=== PATIENT | male | born 1955 | race Caucasian/White ===

== ENCOUNTER 2017-11-25 07:27 | Emergency (ER) | payer OTHER ==
[2017-11-25] MEDS ORDERED: Zofran 4 MG/2 ML VIAL IV ONE (07:35)
[2017-11-25] MEDS ORDERED: TORAdol 30 mg Injection IV ONE (07:35)
--- NOTE | 2017-11-25 07:40 | ERPHSYRPT ---
- History of Present Illness Time Seen by Provider: 11/25/17 07:32 Source: patient, EMS Exam Limitations: no limitations Physician History: patient fell in the bathroom 2 days ago injuring his left ribs on side of bathtub; ; no other injury; chronic sob but now increased because hurts to breath; cough with pain and productive thick mucous; no blood; no increase sob since fall; no fever; no other CP other then local anterior lateral lower left from fall; no abdominal pain, nausea or vomiting; eating ok; no change BMs or voiding and no blood in stool or urine; no head or neck injury or pain; Occurred: days ago (2) Reason for Fall: slipped, fell from standing pos (striking side of tub) Injuries/Pain Location: chest (anterior left lower ribs) Loss of Consciousness: no loss of consciousness Severity of Pain-Max: severe (10/10) Severity of Pain-Current: severe (8/10) Modifying Factors: Improves With: immobilization (helps), movement (aggravates) Associated Symptoms (Fall): chest pain (with motion or cough or deep breath loacally to injury), shortness of breath (chronic; not increased) Allergies/Adverse Reactions: penicillin G Allergy (Verified 11/25/17 07:38) Hx Influenza Vaccination/Date Given: No Hx Pneumococcal Vaccination/Date Given: No - Review of Systems Constitutional: No Fever, No Chills, No Fatigue Eyes: No Symptoms Ears, Nose, & Throat: No Symptoms Respiratory: Cough (chronic), Dyspnea on Exertion (MEHTA), No Cyanosis, No Dyspnea , No Stridor, No Wheezing Cardiac: Chest Pain (left lower ribs from contusion ), No Edema, No Palpitations , No Syncope, No Orthopnea Abdominal/Gastrointestinal: No Abdominal Pain, No Nausea, No Vomiting, No Diarrhea, No Hematemesis, No Hematochezia, No Melena Genitourinary Symptoms: No Dysuria, No Hematuria, No Testicle Pain Musculoskeletal: Fall, Injury (left lower ribs), No Back Pain, No Neck Pain, No Joint Pain Skin: No Symptoms Neurological: No Symptoms Psychological: Alcohol Abuse, No Drug Abuse, No Depression, No Suicidal Ideations, No Homicidal Ideations Endocrine: No No Symptoms Hematologic/Lymphatic: No No Symptoms Immunological/Allergic: No No Symptoms - Past Medical History Pertinent Past Medical History: Yes Cardiac History: Hypertension Respiratory History: Bronchitis, COPD, Other (prior rib fractures) Endocrine Medical History: No Pertinent History Musculoskeletal History: No Pertinent History GI Medical History: No Pertinent History History: No Pertinent History Psycho-Social History: No Pertinent History Male Reproductive Disorders: No Pertinent History - Past Surgical History Past Surgical History: No - Social History Smoking Status: Current every day smoker Exposure to second hand smoke: Yes Alcohol Use: Chronic Drug Use: none Patient Lives Alone: No Significant Family History: no pertinent family hx - Nursing Vital Signs Nursing Vital Signs: Initial Vital Signs Temperature 98.2 F 11/25/17 07:29 Pulse Rate 79 11/25/17 07:29 Respiratory Rate 22 11/25/17 07:29 Blood Pressure 171/85 11/25/17 07:29 O2 Sat by Pulse Oximetry 94 L 11/25/17 07:29 Pain Scale Pain Intensity 10 - [place] Coma Score Best Eye Response (Mahnaz): (4) open spontaneously Best Verbal Response ([place]): (5) oriented Best Motor Response ([place]ahnaz): (6) obeys commands [place] Total: 15 - Physical Exam General Appearance: severe distress (left lower rib pain), alert Head Injury: no evidence of injury, No contusions, No ecchymosis, No tenderness Eye Exam: PERRL/EOMI, eyes nml inspection, No photophobia ENT Exam: airway nml, No evidence of ENT injury, No dental injury, No hemotympanum, No clotted nasal blood, No malocclusion Neck Exam: supple, trachea midline, full range of motion, normal inspection, No paraspinous muscle tender, No pain on movement of neck, No tenderness, No carotid bruit, No JVD Respiratory/Chest Exam: chest tenderness (left loer ribs- anterior; mid axillary ), respiratory distress (mild tachypnea and shallow), decreased breath sounds ( splintting on left), rib tenderness (left anterior to mid axiallry lower), splinting, other (diffuse coarse bronchovesciular breath sounds), No normal breath sounds, No ecchymosis, No crepitus, No rales, No rhonchi, No wheezing, No subcutaneous emphysema, No palpable fracture, No paradoxical movements Cardiovascular Exam: normal heart sounds, regular rate/rhythm, normal peripheral pulses, No murmur, No edema, No JVD, No friction rub Gastrointestinal Exam: soft, normal bowel sounds, tenderness (mild LUQ; no guarding or rebound), distention (softly), hepatomegaly (mild), No mass, No guarding, No pulsatile mass, No rebound, No hernia, No bruit Genitalia Exam: normal genital exam Rectal Exam: deferred Back Exam: normal inspection, normal range of motion, No CVA tenderness, No vertebral tenderness, No point tenderness Extremity Exam: normal inspection, normal range of motion, capillary refill <3 sec, pelvis stable, No bony point tenderness Peripheral Pulses: carotid (R): 4+, carotid (L): 4+, femoral (R): 4+, femoral (L ): 4+, dorsalis-pedis (R): 3+, dorsalis-pedis (L): 3+ Neurologic Exam: alert, oriented x 3, cooperative, palaeontologist II-XII nml as tested, normal mood/affect, nml cerebellar function, sensation nml, No nml station & gait (pain in left ribs limits his mobility; able to stand nad ambulate slowly wiht assitance), No motor deficits Skin Exam: normal color, warm, dry, No rash, No petechiae, No cyanosis SpO2 Interpretation: borderline oxygenation, O2 applied SpO2: 93 Oxygen Delivery: Room Air - Course Nursing assessment & vital signs reviewed: Yes Rhythm Strip: Rate (75), Normal Sinus Rhythm - Radiology Exams Chest X-ray Interpretation: Interpreted by me, No Pneumonia, No Pneumothorax, Nml Heart Size, Non-displaced Fracture (left ribs 7 & 9; aging chest) Ordered Tests: Active Orders 24 hr Category Date Time Status Community Engagement Manager STAT Care 11/25/17 07:34 Active IV Insertion STAT Care 11/25/17 07:32 Active Oxygen-ED Only NASAL CANNULA 2 lpm Care 11/25/17 07:32 Active Pulse Oximetry (ED) STAT Care 11/25/17 07:32 Active CHEST 1 VIEW (PORTABLE) Stat Exams 11/25/17 07:33 Completed CBC W DIFF Stat Lab 11/25/17 07:50 Completed CMP Stat Lab 11/25/17 07:50 Completed Lactic Acid Stat Lab 11/25/17 07:50 Completed Lactic Acid Stat Lab 11/25/17 10:07 Results NT PRO BNP Stat Lab 11/25/17 07:50 Completed Medication Summary Discontinued Medications Generic Name Dose Route Start Last Admin Trade Name Mima PRPing Reason Stop Dose Admin Hydromorphone HCl 1 mg 11/25/17 08:23 11/25/17 08:35 Hydromorphone 1 Mg/Ml Ampule IV 11/25/17 08:24 Not Given STAT ONE Hydromorphone HCl 2 mg 11/25/17 08:27 11/25/17 08:33 Hydromorphone 1 Mg/Ml Ampule IV 11/25/17 08:28 2 mg STAT ONE Administration Hydromorphone HCl Confirm 11/25/17 08:27 Dilaudid 2 Mg Injection Administered 11/25/17 08:28 Dose 2 mg .ROUTE .STK-MED ONE Lactated Ringer's 1,000 mls @ 999 mls/hr 11/25/17 08:14 11/25/17 08:17 Lactated Ringers IV 11/25/17 09:14 999 mls/hr .Q1H1M ONE Administration Lactated Ringer's Confirm 11/25/17 08:16 Lactated Ringers Administered 11/25/17 08:17 Dose 1,000 mls @ ud IV .STK-MED ONE Ketorolac Tromethamine 30 mg 11/25/17 07:35 11/25/17 08:02 Toradol 30 Mg Injection IV 11/25/17 07:36 30 mg STAT ONE Administration Ketorolac Tromethamine Confirm 11/25/17 07:53 Toradol 30 Mg Injection Administered 11/25/17 07:54 Dose 30 mg .ROUTE .STK-MED ONE Ondansetron HCl 4 mg 11/25/17 07:35 11/25/17 08:02 Zofran 4 Mg/2 Ml Vial IV 11/25/17 07:36 4 mg STAT ONE Administration Ondansetron HCl Confirm 11/25/17 07:53 Zofran 4 Mg/2 Ml Vial Administered 11/25/17 07:54 Dose 4 mg .ROUTE .STK-MED ONE Lab/Rad Data: Laboratory Result Diagrams 11/25/17 07:50 11/25/17 07:50 Laboratory Results 11/25/17 11/25/17 11/25/17 Range/Units 10:07 07:50 07:50 WBC (4.0-10.5) K/mm3 RBC (4.1-5.6) M/mm3 Hgb (12.5-18.0) gm/dl Hct (42-50) % MCV (78-100) fl MCH (26-32) pg MCHC (32-36) g/dl RDW (11.5-14.0) % Plt Count (150-450) K/mm3 MPV (6-9.5) fl Gran % (36.0-66.0) % Lymphocytes % (24.0-44.0) % Monocytes % (0.0-12.0) % Eosinophils % (0.00-5.0) % Basophils % (0.0-0.4) % Basophils # (0-0.4) Sodium 145 (137-145) mmol/L Potassium 4.0 (3.5-5.1) mmol/L Chloride 105 (98-107) mEq/L Carbon Dioxide 22 (22-30) mmol/L Anion Gap 22.0 MEQ/L BUN 14 (9-20) mg/dl Creatinine 0.80 (0.66-1.25) mg/dl Estimated GFR > 60 ML/MIN Glucose 94 (74-106) mg/dL Lactic Acid 2.2 H (0.4-2.0) Calcium 9.7 (8.4-10.2) mg/dl Total Bilirubin 0.90 (0.2-1.3) mg/d? AST 29 (17-59) U/L ALT 32 (0-50) U/L Alkaline Phosphatase 99 (38-126) U/L NT-Pro-B Natriuret Pep 32.8 (0-900) pg/ml Serum Total Protein 8.1 (6.3-8.2) mg/dl Albumin 4.7 (3.5-5.0) g/dl Influenza Type A Ag NEGATIVE (NEGATIVE) Influenza Type B Ag NEGATIVE (NEGATIVE) RSV (PCR) NEGATIVE (Negative) 11/25/17 11/25/17 Range/Units 07:50 07:50 WBC 6.4 (4.0-10.5) K/mm3 RBC 4.99 (4.1-5.6) M/mm3 Hgb 16.7 (12.5-18.0) gm/dl Hct 48.6 (42-50) % MCV 97.4 (78-100) fl MCH 33.5 H (26-32) pg MCHC 34.4 (32-36) g/dl RDW 14.4 H (11.5-14.0) % Plt Count 181 (150-450) K/mm3 MPV 10.1 H (6-9.5) fl Gran % 58.1 (36.0-66.0) % Lymphocytes % 22.1 L (24.0-44.0) % Monocytes % 18.0 H (0.0-12.0) % Eosinophils % 1.3 (0.00-5.0) % Basophils % 0.5 (0.0-0.4) % Basophils # 0.03 (0-0.4) Sodium (137-145) mmol/L Potassium (3.5-5.1) mmol/L Chloride (98-107) mEq/L Carbon Dioxide (22-30) mmol/L Anion Gap MEQ/L BUN (9-20) mg/dl Creatinine (0.66-1.25) mg/dl Estimated GFR ML/MIN Glucose (74-106) mg/dL Lactic Acid 3.6 H (0.4-2.0) Calcium (8.4-10.2) mg/dl Total Bilirubin (0.2-1.3) mg/d? AST (17-59) U/L ALT (0-50) U/L Alkaline Phosphatase (38-126) U/L NT-Pro-B Natriuret Pep (0-900) pg/ml Serum Total Protein (6.3-8.2) mg/dl Albumin (3.5-5.0) g/dl Influenza Type A Ag (NEGATIVE) Influenza Type B Ag (NEGATIVE) RSV (PCR) (Negative) reviewed - Progress Progress: improved (after meds), pain not gone completely (on recheck), re- examined (after meds; ) Progress Note: 11/25/17 07:49 examined; will get xr and labs; give meds and recheck; EKG from EMS NAD; monitor NSR 76; will monitor and recheck; placed on O2 as Pulse ox 93 on RA 11/25/17 07:50 11/25/17 08:16 rechecked post meds and CXR; pO2 95% on 2 l nc; CXR shows acute fracture left ribs 7 & 9; no pneumo; still with significant pain; lactate was 3.6; will start IV fluids and bolus; monitor and recheck; CBC wnl 11/25/17 08:25 at bedside; glu wnl; renal fx ok; lytes ok; cmop ok; p BNP pending; will give more pain meds and recheck 11/25/17 08:32 11/25/17 09:03 recheck and pain improving now 04/30 form 06/30; will repeat meds ; rsv; infu A & B neg; p BNP wnl; will monitor and recheck 11/25/17 10:15 recheck and pain now tolerable; no change in exam otherwise; repeat lactic acid 2.2; encouraged hydration and smoking cessation discussed; resutls reviewed and instructions given; family at bedside Counseled pt/family regarding: lab results, diagnosis, need for follow-up, rad results, smoking cessation - Departure Time of Disposition: 10:17 Departure Disposition: Home Clinical Impression: Multiple fractures of ribs, left side, initial encounter for closed fracture, Acute bronchitis Condition: Stable Critical Care Time: No Referrals: DOCTOR,NO FAMILY [Primary Care Provider] - Instructions: Contusion (DC), Preventing Falls Additional Instructions: stop smoking; rest; fluids; follow up lmd recheck 48 hours Follow-up with family doctor as directed. Call for appointment. Return if any problems. If you smoke please stop. Call or follow up with your family doctor for assistance if you need it to stop. Please wear your seatbelt when driving. Have a nice day. Thank you for allowing us to participate in your care today. :o) Dr Quinton Atkinson Prescriptions: Azithromycin [Zithromax Tri-Jesse 500 mg] 500 mg PO DAILY #1 packet Hydrocodone Bit/Acetaminophen [Vicodin 5-500 Tablet] 1 each PO Q4-6HPRN PRN #20 tablet MDD 6 PRN Reason: Pain
[2017-11-25] MEDS ORDERED: TORAdol 30 mg Injection ONE (07:53)
[2017-11-25] MEDS ORDERED: Zofran 4 MG/2 ML VIAL ONE (07:53)
[2017-11-25 08:08] LABS: BASOPHIL % 0.5 % (0.0-0.4); Basophil (Absolute #) 0.03 (0-0.4); Eosinophil % 1.3 % (0.00-5.0); Eosinophil (Absolute #) 0.08 (0-0.5); Granulocyte Absolute (ANC) 3.71 (1.4-6.9); Granulocytes % 58.1 % (36.0-66.0); Hematocrit 48.6 % (42-50); Hemoglobin 16.7 gm/dl (12.5-18.0); Lymphocyte (Absolute #) 1.41 (1.0-4.6); Lymphocytes % 22.1 % (24.0-44.0); Mean Cell Volume 97.4 fl (78-100); Mean Corpuscular Hemoglobin 33.5 pg (26-32); Mean Corpuscular Hgb Concent. 34.4 g/dl (32-36); Mean Platelet Volume 10.1 fl (6-9.5); Monocyte (Absolute #) 1.15 (0.0-1.3); Platelet Count 181 K/mm3 (150-450); Red Blood Count 4.99 M/mm3 (4.1-5.6); Red Cell Distribution Width 14.4 % (11.5-14.0); White Blood Count 6.4 K/mm3 (4.0-10.5)
[2017-11-25] MEDS ORDERED: Lactated Ringers 1,000 ML IV ONE ×2 (08:14→08:16)
[2017-11-25 08:20] LABS: ALBUMIN 4.7 g/dl (3.5-5.0); ALKALINE PHOSPHATASE 99 U/L (38-126); BLOOD UREA NITROGEN 14 mg/dl (9-20); CHLORIDE 105 mEq/L (98-107); Calcium 9.7 mg/dl (8.4-10.2); Carbon Dioxide 22 mmol/L (22-30); Glucose 94 mg/dL (74-106); SGOT/AST 29 U/L (17-59); SGPT/ALT 32 U/L (0-50); SODIUM 145 mmol/L (137-145); Total Protein 8.1 mg/dl (6.3-8.2)
[2017-11-25] MEDS ORDERED: Hydromorphone 1 mg/ml Ampule IV ONE ×2 (08:23→08:27)
[2017-11-25] MEDS ORDERED: DILAUDID 2 MG INJECTION ONE (08:27)
[2017-11-25 08:30] LABS: Lactic Acid 3.6 (0.4-2.0)
[2017-11-25 08:32] LABS: NT PRO BNP 32.8 pg/ml (0-900)
--- NOTE | 2017-11-25 08:37 | XRAY ---
Indication: Right-sided chest pain and short of breath following fall. Comparison: None Portable chest demonstrates nondisplaced left 7/8/9 rib fractures with adjacent atelectasis. No infiltrate, consolidation, or pneumothorax/hemothorax. Heart is not enlarged.
[2017-11-25 08:42] VITALS: O2SAT 93
[2017-11-25 08:59] LABS: INFLUENZA A NEGATIVE (NEGATIVE); INFLUENZA B NEGATIVE (NEGATIVE); RESPIRATORY SYNCTIAL VIRUS NEGATIVE (Negative)
[2017-11-25 10:10] LABS: Lactic Acid 2.2 (0.4-2.0)
[2017-11-25 10:31] VITALS: BP 145/95; PULSE 55
== END 2017-11-25 10:39 | disposition home or self-care (01) ==
LOC: ED 07:27
DX: S22.42XA Multiple fractures of ribs, left side, initial encounter for closed fracture (principal); W18.2XXA Fall in (into) shower or empty bathtub, initial encounter; Y93.9 Activity, unspecified; Y92.9 Unspecified place or not applicable; J44.9 Chronic obstructive pulmonary disease, unspecified; I10 Essential (primary) hypertension; F17.200 Nicotine dependence, unspecified, uncomplicated
CPT/HCPCS: 36000; 36415; 71045; 80053; 83605; 83880; 85025; 87631; 93041; 96360; 96374; 96375; 99284; J1170; J1885; J2405

== ENCOUNTER 2018-09-16 14:55 | Emergency (ER) | payer MEDICARE ==
[2018-09-16 15:36] VITALS: O2SAT 95
--- NOTE | 2018-09-16 15:41 | ERPHSYRPT ---
- History of Present Illness Time Seen by Provider: 09/16/18 15:25 Historian: patient Exam Limitations: no limitations Patient Subjective Stated Complaint: left lower abdominal pain since Sep 12. non radiating. denies vomiting but has been nauseated. Triage Nursing Assessment: alert and oriented with c/o left lower abdominal pain since Sep 12. sl pain on palpation. states nausea with no vomiting. non radiating pain. has hx chronic back pain that he uses marijauna for control. Physician History: 62 y/o white male presents with left lower quadrant abd pain since Sep 12, 2018. no vomiting. yes nausea. had diarrhea this am. never had this before. does not recall ever having a colonoscopy. no blood from vomiting, urinating or stool. Timing/Duration: day(s) (4) Quality: sharpness Abdominal Pain Onset Location: LLQ Pain Radiation: no radiation Severity of Pain-Max: moderate Severity of Pain-Current: moderate Modifying Factors: Improves With: palpation (worsens) Associated Symptoms: diarrhea, nausea, No vomiting Previous symptoms: no prior history Allergies/Adverse Reactions: penicillin G Allergy (Verified 11/25/17 07:38) Hx Tetanus, Diphtheria Vaccination/Date Given: No Hx Influenza Vaccination/Date Given: No Hx Pneumococcal Vaccination/Date Given: No - Review of Systems Constitutional: No Symptoms Eyes: No Symptoms Ears, Nose, & Throat: No Symptoms Respiratory: No Symptoms Cardiac: No Symptoms Abdominal/Gastrointestinal: Abdominal Pain (left lower), Nausea, Diarrhea, No Vomiting Genitourinary Symptoms: No Symptoms, No Dysuria, No Frequency, No Hematuria Musculoskeletal: No Symptoms, No Back Pain, No Deformity, No Fall, No Injury Skin: No Symptoms Neurological: No Symptoms Psychological: No Symptoms Endocrine: No Symptoms Hematologic/Lymphatic: No Symptoms Immunological/Allergic: No Symptoms All Other Systems: Reviewed and Negative - Past Medical History Pertinent Past Medical History: Yes Neurological History: No Pertinent History ENT History: No Pertinent History Cardiac History: No Pertinent History, Hypertension Respiratory History: Bronchitis, COPD, Other Endocrine Medical History: No Pertinent History Musculoskeletal History: No Pertinent History GI Medical History: No Pertinent History History: No Pertinent History Psycho-Social History: No Pertinent History Male Reproductive Disorders: No Pertinent History - Past Surgical History Past Surgical History: No Neuro Surgical History: No Pertinent History Cardiac: No Pertinent History Respiratory: No Pertinent History Gastrointestinal: No Pertinent History Genitourinary: No Pertinent History Musculoskeletal: No Pertinent History Male Surgical History: No Pertinent History - Social History Smoking Status: Current every day smoker How long have you smoked: yrs Exposure to second hand smoke: No Alcohol Use: Chronic Drug Use: marijuana Patient Lives Alone: No Significant Family History: no pertinent family hx - Nursing Vital Signs Nursing Vital Signs: Initial Vital Signs Temperature 98.3 F 09/16/18 15:24 Pulse Rate 87 09/16/18 15:24 Respiratory Rate 18 09/16/18 15:24 Blood Pressure 110/80 09/16/18 15:24 O2 Sat by Pulse Oximetry 95 09/16/18 15:24 Pain Scale Pain Intensity 6 - Physical Exam General Appearance: mild distress, alert, anxiety Eye Exam: PERRL/EOMI Ears, Nose, Throat Exam: normal ENT inspection, moist mucous membranes Neck Exam: normal inspection, non-tender Respiratory Exam: normal breath sounds, lungs clear, airway intact, No chest tenderness, No respiratory distress, No accessory muscle use, No rhonchi, No wheezing, No stridor Cardiovascular Exam: regular rate/rhythm, normal heart sounds, normal peripheral pulses Gastrointestinal/Abdomen Exam: soft, normal bowel sounds, tenderness (llq), guarding, No rebound Rectal Exam: not done Back Exam: normal inspection, normal range of motion, No CVA tenderness, No vertebral tenderness Extremity Exam: normal inspection, normal range of motion, pelvis stable Neurologic Exam: alert, oriented x 3, cooperative, program engineer II-XII nml as tested Skin Exam: normal color, warm, dry Lymphatic Exam: No adenopathy SpO2 Interpretation: normal SpO2: 95 Oxygen Delivery: Room Air - Course Nursing assessment & vital signs reviewed: Yes Ordered Tests: Active Orders 24 hr Category Date Time Status Clean Catch Urine Specimen STAT Care 09/16/18 15:43 Active IV Insertion STAT Care 09/16/18 15:43 Active NPO (ED) STAT Care 09/16/18 15:43 Active ABDOMEN AND PELVIS W/0 CONTRAS [CT] Stat Exams 09/16/18 15:43 Completed AMYLASE Stat Lab 09/16/18 15:58 Completed CBC W DIFF Stat Lab 09/16/18 15:58 Completed CMP Stat Lab 09/16/18 15:58 Completed LIPASE Stat Lab 09/16/18 15:58 Completed Lactic Acid Stat Lab 09/16/18 16:11 Completed UA W/RFX UR CULTURE Stat Lab 09/16/18 15:43 Completed Medication Summary Discontinued Medications Generic Name Dose Route Start Last Admin Trade Name Mima PRN Reason Stop Dose Admin Hydromorphone HCl 1 mg 09/16/18 15:43 09/16/18 16:19 Hydromorphone 1 Mg/Ml Ampule IV 09/16/18 15:44 1 mg STAT ONE Administration Hydromorphone HCl Confirm 09/16/18 16:15 Hydromorphone 1 Mg/Ml Ampule Administered 09/16/18 16:16 Dose 1 mg .ROUTE .STK-MED ONE Sodium Chloride 1,000 mls @ 999 mls/hr 09/16/18 15:43 09/16/18 16:20 Sodium Chloride 0.9% 1000 Ml IV 09/16/18 16:43 999 mls/hr .Q1H1M STA Administration Sodium Chloride Confirm 09/16/18 16:15 Sodium Chloride 0.9% 1000 Ml Administered 09/16/18 16:16 Dose 1,000 mls @ ud .ROUTE .STK-MED ONE Levofloxacin 500 mg 09/16/18 17:04 09/16/18 17:22 Levofloxacin 500 Mg Tablet PO 09/16/18 17:05 500 mg STAT ONE Administration Levofloxacin Confirm 09/16/18 17:21 Levofloxacin 500 Mg Tablet Administered 09/16/18 17:22 Dose 500 mg .ROUTE .STK-MED ONE Metronidazole 500 mg 09/16/18 17:04 09/16/18 17:22 Flagyl 500 Mg PO 09/16/18 17:05 500 mg STAT ONE Administration Metronidazole Confirm 09/16/18 17:21 Flagyl 500 Mg Administered 09/16/18 17:22 Dose 500 mg .ROUTE .STK-MED ONE Ondansetron HCl 4 mg 09/16/18 15:43 09/16/18 16:19 Zofran 4 Mg/2 Ml Vial IV 09/16/18 15:44 4 mg STAT ONE Administration Ondansetron HCl Confirm 09/16/18 16:15 Zofran 4 Mg/2 Ml Vial Administered 09/16/18 16:16 Dose 4 mg .ROUTE .STK-MED ONE Lab/Rad Data: Laboratory Result Diagrams 09/16/18 15:58 09/16/18 15:58 Laboratory Results 09/16/18 09/16/18 09/16/18 Range/Units 16:11 15:58 15:58 WBC 12.4 H (4.0-10.5) K/mm3 RBC 4.87 (4.1-5.6) M/mm3 Hgb 15.8 (12.5-18.0) gm/dl Hct 47.4 (42-50) % MCV 97.3 (78-100) fl MCH 32.4 H (26-32) pg MCHC 33.3 (32-36) g/dl RDW 14.5 H (11.5-14.0) % Plt Count 229 (150-450) K/mm3 MPV 9.8 H (6-9.5) fl Gran % 67.9 H (36.0-66.0) % Eos # (Auto) 0.20 (0-0.5) Absolute Lymphs (auto) 1.82 (1.0-4.6) Absolute Monos (auto) 1.94 H (0.0-1.3) Lymphocytes % 14.7 L (24.0-44.0) % Monocytes % 15.6 H (0.0-12.0) % Eosinophils % 1.6 (0.00-5.0) % Basophils % 0.2 (0.0-0.4) % Absolute Granulocytes 8.41 H (1.4-6.9) Basophils # 0.03 (0-0.4) Sodium 139 (137-145) mmol/L Potassium 3.9 (3.5-5.1) mmol/L Chloride 104 (98-107) mmol/L Carbon Dioxide 24 (22-30) mmol/L Anion Gap 14.8 (5-15) MEQ/L BUN 15 (9-20) mg/dL Creatinine 0.95 (0.66-1.25) mg/dL Estimated GFR > 60.0 ML/MIN Glucose 110 H (74-106) mg/dL Lactic Acid 1.4 (0.4-2.0) Calcium 9.2 (8.4-10.2) mg/dL Total Bilirubin 0.90 (0.2-1.3) mg/dL AST 15 L (17-59) U/L ALT 23 (0-50) U/L Alkaline Phosphatase 83 (38-126) U/L Serum Total Protein 7.4 (6.3-8.2) g/dL Albumin 4.2 (3.5-5.0) g/dL Amylase 98 (30-110) U/L Lipase 156 (23-300) U/L Urine Color (YELLOW) Urine Appearance (CLEAR) Urine pH (5-6) Ur Specific [place] (1.005-1.025) Urine Protein (Negative) Urine Ketones (NEGATIVE) Urine Blood (0-5) Jass/ul Urine Nitrite (NEGATIVE) Urine Bilirubin (NEGATIVE) Urine Urobilinogen (0-1) mg/dL Ur Leukocyte Esterase (NEGATIVE) Urine WBC (Auto) (0-5) /HPF Urine RBC (Auto) (0-2) /HPF U Epithel Cells (Auto) (FEW) /HPF Urine Bacteria (Auto) (NEGATIVE) /HPF Urine Mucus (Auto) (NEGATIVE) /HPF Urine Culture Reflexed (NO) Urine Glucose (NEGATIVE) mg/dL 09/16/18 Range/Units 15:43 WBC (4.0-10.5) K/mm3 RBC (4.1-5.6) M/mm3 Hgb (12.5-18.0) gm/dl Hct (42-50) % MCV (78-100) fl MCH (26-32) pg MCHC (32-36) g/dl RDW (11.5-14.0) % Plt Count (150-450) K/mm3 MPV (6-9.5) fl Gran % (36.0-66.0) % Eos # (Auto) (0-0.5) Absolute Lymphs (auto) (1.0-4.6) Absolute Monos (auto) (0.0-1.3) Lymphocytes % (24.0-44.0) % Monocytes % (0.0-12.0) % Eosinophils % (0.00-5.0) % Basophils % (0.0-0.4) % Absolute Granulocytes (1.4-6.9) Basophils # (0-0.4) Sodium (137-145) mmol/L Potassium (3.5-5.1) mmol/L Chloride (98-107) mmol/L Carbon Dioxide (22-30) mmol/L Anion Gap (5-15) MEQ/L BUN (9-20) mg/dL Creatinine (0.66-1.25) mg/dL Estimated GFR ML/MIN Glucose (74-106) mg/dL Lactic Acid (0.4-2.0) Calcium (8.4-10.2) mg/dL Total Bilirubin (0.2-1.3) mg/dL AST (17-59) U/L ALT (0-50) U/L Alkaline Phosphatase (38-126) U/L Serum Total Protein (6.3-8.2) g/dL Albumin (3.5-5.0) g/dL Amylase (30-110) U/L Lipase (23-300) U/L Urine Color YELLOW (YELLOW) Urine Appearance CLEAR (CLEAR) Urine pH 5.0 (5-6) Ur Specific [place] 1.020 (1.005-1.025) Urine Protein NEGATIVE (Negative) Urine Ketones NEGATIVE (NEGATIVE) Urine Blood NEGATIVE (0-5) Jass/ul Urine Nitrite NEGATIVE (NEGATIVE) Urine Bilirubin NEGATIVE (NEGATIVE) Urine Urobilinogen NEGATIVE (0-1) mg/dL Ur Leukocyte Esterase TRACE (NEGATIVE) Urine WBC (Auto) 3-5 (0-5) /HPF Urine RBC (Auto) NONE (0-2) /HPF U Epithel Cells (Auto) NONE (FEW) /HPF Urine Bacteria (Auto) NONE (NEGATIVE) /HPF Urine Mucus (Auto) SLIGHT (NEGATIVE) /HPF Urine Culture Reflexed NO (NO) Urine Glucose NEGATIVE (NEGATIVE) mg/dL - Progress Progress: improved, re-examined Progress Note: 09/16/18 17:50 ct scan abd/pelvis-dista desc/prox sigmoid diverticulitis. Counseled pt/family regarding: lab results, diagnosis, need for follow-up, rad results - Departure Time of Disposition: 17:51 Departure Disposition: Home Clinical Impression: Sigmoid diverticulitis Condition: Stable Critical Care Time: No Referrals: DOCTOR,NO FAMILY [NON-STAFF PHY W/O PRIVILEGES] - Additional Instructions: clear liquids for 24 hours. return to ED if symptoms worsen. follow up with primary doctor for persistent symptoms Prescriptions: Hydrocodone/APAP 5/325 [[place] 5/325 mg] 1 each PO Q6H PRN PRN #10 tablet MDD 4 PRN Reason: Pain Promethazine HCl 25 mg [Phenergan 25 mg] 25 mg PO Q8H PRN PRN #10 tablet PRN Reason: Nausea/Vomiting Ciprofloxacin [Cipro 500 MG] 500 mg PO BID #14 tablet Metronidazole 500 mg [Flagyl 500 MG] 500 mg PO TID #21 tablet
[2018-09-16] MEDS ORDERED: Sodium Chloride 0.9% 1000 ML 1,000 ML IV STA (15:43)
[2018-09-16] MEDS ORDERED: Zofran 4 MG/2 ML VIAL IV ONE (15:43)
[2018-09-16] MEDS ORDERED: Hydromorphone 1 mg/ml Ampule IV ONE (15:43)
[2018-09-16 16:05] LABS: Appearance CLEAR (CLEAR); Bilirubin NEGATIVE (NEGATIVE); Blood NEGATIVE Ery/ul (0-5); Glucose NEGATIVE (NEGATIVE); Ketones NEGATIVE (NEGATIVE); Leukocyte Esterase TRACE (NEGATIVE); Nitrite NEGATIVE (NEGATIVE); Protein,Urine Dip NEGATIVE (Negative); Urobilinogen NEGATIVE mg/dL (0-1)
[2018-09-16 16:12] LABS: BASOPHIL % 0.2 % (0.0-0.4); Basophil (Absolute #) 0.03 (0-0.4); Eosinophil % 1.6 % (0.00-5.0); Granulocyte Absolute (ANC) 8.41 (1.4-6.9); Granulocytes % 67.9 % (36.0-66.0); Hematocrit 47.4 % (42-50); Hemoglobin 15.8 gm/dl (12.5-18.0); Lymphocyte (Absolute #) 1.82 (1.0-4.6); Lymphocytes % 14.7 % (24.0-44.0); Mean Cell Volume 97.3 fl (78-100); Mean Corpuscular Hemoglobin 32.4 pg (26-32); Mean Corpuscular Hgb Concent. 33.3 g/dl (32-36); Mean Platelet Volume 9.8 fl (6-9.5); Monocyte (Absolute #) 1.94 (0.0-1.3); Monocytes % 15.6 % (0.0-12.0); Platelet Count 229 K/mm3 (150-450); Red Blood Count 4.87 M/mm3 (4.1-5.6); Red Cell Distribution Width 14.5 % (11.5-14.0); White Blood Count 12.4 K/mm3 (4.0-10.5)
[2018-09-16] MEDS ORDERED: Zofran 4 MG/2 ML VIAL ONE (16:15)
[2018-09-16] MEDS ORDERED: Sodium Chloride 0.9% 1000 ML 1,000 ML ONE (16:15)
[2018-09-16] MEDS ORDERED: Hydromorphone 1 mg/ml Ampule ONE (16:15)
[2018-09-16 16:24] LABS: ALBUMIN 4.2 g/dL (3.5-5.0); ALKALINE PHOSPHATASE 83 U/L (38-126); AMYLASE 98 U/L (30-110); ANION GAP 14.8 MEQ/L (5-15); BLOOD UREA NITROGEN 15 mg/dL (9-20); CHLORIDE 104 mmol/L (98-107); Calcium 9.2 mg/dL (8.4-10.2); Carbon Dioxide 24 mmol/L (22-30); Creatinine 1 0.95 mg/dL (0.66-1.25); Glucose 110 mg/dL (74-106); LIPASE 156 U/L (23-300); Potassium 3.9 mmol/L (3.5-5.1); SGOT/AST 15 U/L (17-59); SGPT/ALT 23 U/L (0-50); SODIUM 139 mmol/L (137-145); Total Protein 7.4 g/dL (6.3-8.2)
--- NOTE | 2018-09-16 16:57 | XRAY ---
Indication: Left lower abdominal pain 3 days. Nausea. Multiple contiguous axial images obtained through the abdomen and pelvis without contrast as ordered. Comparison: None Lung bases demonstrates minimal bibasilar dependent atelectasis. No infiltrate or effusion. Heart is not enlarged. Noncontrasted stomach and bowel loops appear nonobstructed. Normal appendix. Mild scattered descending and sigmoid diverticulosis. There is distal descending colon and proximal sigmoid bowel wall thickening and pericolonic stranding favoring acute diverticulitis. No free fluid/air. Hepatic/splenic calcified granulomas. Remaining liver, gallbladder, pancreas, spleen, adrenal glands, kidneys, ureters, and bladder appear unremarkable for noncontrast exam. Mild aortoiliac calcifications without AAA. Osseous structures intact with mild degenerative changes throughout the spine, remote-appearing L1 fracture with near complete collapse, and L5 Schmorl node. No ventral or inguinal hernias. Impression: 1. Distal descending/proximal sigmoid diverticulitis. No complications. 2. Incidental remote L1 fracture and evidence for old granulomatous disease. CTDI 18.49
[2018-09-16] MEDS ORDERED: Flagyl 500 MG PO ONE (17:04)
[2018-09-16] MEDS ORDERED: Levofloxacin 500 MG Tablet PO ONE (17:04)
[2018-09-16] MEDS ORDERED: Flagyl 500 MG ONE (17:21)
[2018-09-16] MEDS ORDERED: Levofloxacin 500 MG Tablet ONE (17:21)
[2018-09-16 17:51] VITALS: BP 113/67; PULSE 72
[2018-09-16] MEDS ORDERED: NORCO 5/325 MG PO ONE (18:09)
[2018-09-16] MEDS ORDERED: PHENERGAN 25 MG PO PRN (18:09)
[2018-09-16] MEDS ORDERED: PHENERGAN 25 MG ONE (18:15)
[2018-09-16] MEDS ORDERED: NORCO 5/325 MG ONE (18:15)
[2018-09-16 23:57] LABS: Slide Review 1 YES
== END 2018-09-16 18:31 | disposition home or self-care (01) ==
LOC: ED 14:55
DX: K57.32 Diverticulitis of large intestine without perforation or abscess without bleeding (principal); R19.7 Diarrhea, unspecified; R11.0 Nausea
CPT/HCPCS: 36000; 36415; 74176; 80053; 81001; 82150; 83605; 83690; 85025; 96360; 96365; 96374; 96375; 99284; J1170; J2405; A9270-GY

== ENCOUNTER 2019-02-02 09:38 | Emergency (ER) | payer MEDICARE ==
[2019-02-02 10:20] VITALS: O2SAT 97
[2019-02-02] MEDS ORDERED: Naprosyn 500 MG PO ONE (10:21)
[2019-02-02] MEDS ORDERED: Ativan 0.5 MG PO ONE (10:21)
[2019-02-02] MEDS ORDERED: PERCOCET TABLET 5/325MG PO STA (10:21)
--- NOTE | 2019-02-02 10:21 | ERPHSYRPT ---
- History of Present Illness Time Seen by Provider: 02/02/19 10:20 Source: patient, family Exam Limitations: no limitations Patient Subjective Stated Complaint: states last night fell off a ladder from about 6 feet off the ground. c/o right chest/ axillae pain 05/31. states feels a little short of breath. hurt so bad it woke me up this morning. Able to BROWN WNL Triage Nursing Assessment: pt in obvious discomfort, diff getting up from sitting position. no bruising noted. co slight sob. o2 sat 97% RA. rating pain /10. pt denies hitting head or LOC with fall Physician History: 63 y/o white male presents right chest wall pain after falling off a 6ft ladder yesterday. pain did not improve so pt came into ED for evaluation. denies head injury. has h/o old rib fx in past Occurred: yesterday Reason for Fall: lost balance Injuries/Pain Location: chest (right chest wall) Loss of Consciousness: no loss of consciousness Quality: sharpness, stabbing Severity of Pain-Max: moderate Severity of Pain-Current: moderate Modifying Factors: Improves With: movement, other (deep breath) Associated Symptoms (Fall): muscle spasms, No dizziness, No neck pain, No seizures, No shortness of breath, No slurred speech, No trouble walking, No vomiting Allergies/Adverse Reactions: penicillin G Allergy (Verified 11/25/17 07:38) Home Medications: Albuterol 2.5 mg/3 ml Neb [Proventil 2.5 mg/3 ml Neb] 2.5 mg IH Q4HPRN PRN 02/02/19 [History] Meloxicam 7.5 mg [Mobic 7.5 MG] 7.5 mg PO DAILY 02/02/19 [History] Ranitidine HCl [Zantac] 150 mg PO DAILY 02/02/19 [History] Trazodone HCl 100 mg PO HS 02/02/19 [History] Hx Tetanus, Diphtheria Vaccination/Date Given: Yes Hx Influenza Vaccination/Date Given: No Hx Pneumococcal Vaccination/Date Given: No Immunizations Up to Date: Yes - Review of Systems Constitutional: No Symptoms Eyes: No Symptoms Ears, Nose, & Throat: No Symptoms Respiratory: No Symptoms Cardiac: No Symptoms Abdominal/Gastrointestinal: No Symptoms Genitourinary Symptoms: No Symptoms Musculoskeletal: Fall (righ chest wall pain) Skin: No Symptoms Neurological: No Symptoms Psychological: No Symptoms Endocrine: No Symptoms Hematologic/Lymphatic: No Symptoms Immunological/Allergic: No Symptoms All Other Systems: Reviewed and Negative - Past Medical History Pertinent Past Medical History: Yes Neurological History: No Pertinent History ENT History: No Pertinent History Cardiac History: No Pertinent History Respiratory History: Bronchitis, COPD, Emphysema, Other Endocrine Medical History: No Pertinent History Musculoskeletal History: No Pertinent History GI Medical History: No Pertinent History History: No Pertinent History Psycho-Social History: No Pertinent History Male Reproductive Disorders: No Pertinent History - Past Surgical History Past Surgical History: No Neuro Surgical History: No Pertinent History Cardiac: No Pertinent History Respiratory: No Pertinent History Gastrointestinal: No Pertinent History Genitourinary: No Pertinent History Musculoskeletal: No Pertinent History Male Surgical History: No Pertinent History - Social History Smoking Status: Current every day smoker How long have you smoked: yrs Exposure to second hand smoke: No Alcohol Use: Chronic Drug Use: none Patient Lives Alone: No Significant Family History: no pertinent family hx - Nursing Vital Signs Nursing Vital Signs: Initial Vital Signs Temperature 97.3 F 02/02/19 09:38 Pulse Rate 78 02/02/19 09:38 Respiratory Rate 24 02/02/19 09:38 Blood Pressure 137/76 02/02/19 09:38 O2 Sat by Pulse Oximetry 97 02/02/19 09:38 Pain Scale Pain Intensity 9 - Mahnaz Coma Score Best Eye Response ([place]): (4) open spontaneously Best Verbal Response ([place]): (5) oriented Best Motor Response ([place]): (6) obeys commands Mahnaz Total: 15 - Physical Exam General Appearance: mild distress, alert, anxiety Head Injury: no evidence of injury, No Scott's Sign, No contusions, No lacerations, No raccoon eyes, No swelling Eye Exam: PERRL/EOMI, eyes nml inspection ENT Exam: airway nml, nml ext.inspection Neck Exam: supple, trachea midline, full range of motion, normal alignment, normal inspection Respiratory/Chest Exam: normal breath sounds, rib tenderness (right lateral chest wall), No respiratory distress, No ecchymosis, No rales, No rhonchi, No wheezing Cardiovascular Exam: normal heart sounds, regular rate/rhythm, normal peripheral pulses Gastrointestinal Exam: soft, normal bowel sounds, No tenderness Rectal Exam: not done Back Exam: normal inspection, normal range of motion, No CVA tenderness, No vertebral tenderness Extremity Exam: normal inspection, normal range of motion, pelvis stable Neurologic Exam: alert, oriented x 3, cooperative, chief service dispatcher II-XII nml as tested, normal mood/affect, nml cerebellar function, nml station & gait, sensation nml Skin Exam: normal color, warm, dry SpO2 Interpretation: normal SpO2: 97 O2 Delivery: Room Air Ordered Tests: Active Orders 24 hr Category Date Time Status CHEST 2 VIEWS (PA AND LAT) Stat Exams 02/02/19 10:22 Completed RIBS UNILATERAL Routine Exams 02/02/19 10:40 Completed Medication Summary Discontinued Medications Generic Name Dose Route Start Last Admin Trade Name Mima PRN Reason Stop Dose Admin Lorazepam 0.5 mg 02/02/19 10:21 02/02/19 11:01 Ativan 0.5 Mg PO 02/02/19 10:22 0.5 mg STAT ONE Administration Lorazepam Confirm 02/02/19 10:30 Ativan 1 Mg Administered 02/02/19 10:31 Dose 1 mg .ROUTE .STK-MED ONE Naproxen 500 mg 02/02/19 10:21 02/02/19 11:01 Naprosyn 500 Mg PO 02/02/19 10:22 500 mg STAT ONE Administration Oxycodone/Acetaminophen 1 tab 02/02/19 10:21 02/02/19 11:01 Percocet Tablet 5/325mg PO 02/02/19 10:22 1 tab STAT STA Administration Oxycodone/Acetaminophen Confirm 02/02/19 10:29 Percocet Tablet 5/325mg Administered 02/02/19 10:30 Dose 1 tab .ROUTE .STK-MED ONE - Progress Progress: improved Progress Note: 02/02/19 11:29 right rib xray-old 9 rib fx. cxr-nonacute hyperinflated chest with old bilat rib fx Counseled pt/family regarding: diagnosis, need for follow-up, rad results - Departure Departure Disposition: Home Clinical Impression: Contusion of rib on right side Condition: Stable Critical Care Time: No Referrals: HOSPITAL,'S [Primary Care Provider] - Additional Instructions: continue your medications as prescribed. follow up with primary doctor for further management Prescriptions: Oxycodone HCl/Acetaminophen [Percocet 5-325 mg Tablet] 1 each PO Q6H PRN PRN # 12 tablet MDD 4 PRN Reason: Pain Carisoprodol 350 mg [Soma 350 mg] 350 mg PO Q8H PRN PRN #10 tablet PRN Reason: Muscle Spasms
[2019-02-02] MEDS ORDERED: PERCOCET TABLET 5/325MG ONE (10:29)
[2019-02-02] MEDS ORDERED: Ativan 1 MG ONE (10:30)
[2019-02-02 10:55] VITALS: BP 138/79; PULSE 79
--- NOTE | 2019-02-02 10:55 | XRAY ---
Indication: Upper rib pain following fall. Comparison: None 2 views of the right ribs demonstrates old 9 posterior rib fractures, mild AC joint degenerative arthropathy, and minimal multilevel thoracolumbar degenerative spondylosis. No other bony, articular, or soft tissue abnormalities
--- NOTE | 2019-02-02 10:57 | XRAY ---
Indication: Right rib pain following fall. Possible pneumonia. Comparison: November 25, 2017. PA/lateral chest hyperinflated again with minimal bibasilar fibrosis/scarring. No focal infiltrate, consolidation, or large effusion. Heart and mediastinal structures within normal limits. Bony thorax intact with minimal degenerative changes, old bilateral lower rib fractures, and old L1 compression fracture. Impression: Nonacute hyperinflated chest with chronic features.
== END 2019-02-02 11:53 | disposition home or self-care (01) ==
LOC: ED 09:38
DX: S22.31XS Fracture of one rib, right side, sequela (principal); W11.XXXA Fall on and from ladder, initial encounter; J44.9 Chronic obstructive pulmonary disease, unspecified
CPT/HCPCS: 71046; 71100; 99284; A9270-GY

== ENCOUNTER 2019-12-12 14:09 | Emergency (ER) | payer MEDICARE ==
[2019-12-12] MEDS ORDERED: MORPHINE SULFATE 4 MG INJ IV ONE (14:16)
[2019-12-12] MEDS ORDERED: BABY ASPIRIN 81 MG CHEW PO ONE (14:16)
[2019-12-12 14:28] VITALS: O2SAT 98
[2019-12-12] MEDS ORDERED: Sodium Chloride 0.9% 1000 ML 1,000 ML IV SCH (14:30)
[2019-12-12 14:42] LABS: Absolute Neutrophil Ct (ANC) 2.85 (1.4-6.9); BASOPHIL % 0.5 % (0.0-0.4); Basophil (Absolute #) 0.03 (0-0.4); Eosinophil % 3.6 % (0.00-5.0); Eosinophil (Absolute #) 0.22 (0-0.5); Hematocrit 50.6 % (42-50); Hemoglobin 17.1 gm/dl (12.5-18.0); Lymphocytes % 29.8 % (24.0-44.0); Mean Cell Volume 94.6 fl (78-100); Mean Corpuscular Hgb Concent. 33.8 g/dl (32-36); Mean Platelet Volume 10.3 fl (7.5-11.0); Monocyte (Absolute #) 1.15 (0.0-1.3); Neutrophil % 47.1 % (36.0-66.0); Platelet Count 199 K/mm3 (150-450); Red Blood Count 5.35 M/mm3 (4.1-5.6); Red Cell Distribution Width 14.9 % (11.5-14.0); White Blood Count 6.1 K/mm3 (4.0-10.5)
[2019-12-12] MEDS ORDERED: BABY ASPIRIN 81 MG CHEW ONE (14:50)
[2019-12-12] MEDS ORDERED: MORPHINE SULFATE 4 MG INJ ONE (14:51)
[2019-12-12] MEDS ORDERED: Sodium Chloride 0.9% 1000 ML 1,000 ML ONE (14:51)
--- NOTE | 2019-12-12 14:54 | XRAY ---
Indication: Chest pain. Comparison: February 02, 2019. Portable chest again demonstrates minimal left base fibrosis/scarring. No focal infiltrate, consolidation, or large effusion. Heart is not enlarged for AP portable technique. Bony thorax intact again with mild degenerative changes and old bilateral lower rib fractures. Impression: Continued nonacute chest with chronic features.
[2019-12-12 15:05] LABS: ALBUMIN 4.4 g/dL (3.5-5.0); ALKALINE PHOSPHATASE 110 U/L (38-126); AMYLASE 104 U/L (30-110); ANION GAP 14.2 MEQ/L (5-15); BLOOD UREA NITROGEN 15 mg/dL (9-20); CHLORIDE 104 mmol/L (98-107); Calcium 9.8 mg/dL (8.4-10.2); Carbon Dioxide 27 mmol/L (22-30); Creatinine 1 0.83 mg/dL (0.66-1.25); Glucose 92 mg/dL (74-106); LIPASE 180 U/L (23-300); Potassium 3.9 mmol/L (3.5-5.1); SGOT/AST 27 U/L (17-59); SGPT/ALT 27 U/L (0-50); SODIUM 142 mmol/L (137-145); Total Protein 7.9 g/dL (6.3-8.2)
[2019-12-12 15:12] LABS: INR 1.02 (0.8-3.0); PROTIME 11.5 SECONDS (8.83-12.87)
[2019-12-12 15:19] LABS: Erythrocyte Sedimentation Rate 4 mm/hr (0-15)
[2019-12-12 15:29] LABS: Appearance CLEAR (CLEAR); Bilirubin NEGATIVE (NEGATIVE); Blood NEGATIVE Ery/ul (0-5); Glucose NEGATIVE (NEGATIVE); Ketones NEGATIVE (NEGATIVE); Leukocyte Esterase NEGATIVE (NEGATIVE); Mucus SLIGHT /HPF (NEGATIVE); Nitrite NEGATIVE (NEGATIVE); Protein,Urine Dip NEGATIVE (Negative); Specific Gravity 1.013 (1.005-1.025); Urobilinogen NEGATIVE mg/dL (0-1)
[2019-12-12 15:43] LABS: Amphetamine,Urine NEGATIVE (NEGATIVE); Barbiturate,Urine NEGATIVE (NEGATIVE); Benzodiazepine,Urine NEGATIVE (NEGATIVE); Cocaine,Urine NEGATIVE (NEGATIVE); Methadone,Urine NEGATIVE (NEGATIVE); Opiate,Urine NEGATIVE (NEGATIVE); PCP,Urine NEGATIVE (NEGATIVE); THC,Urine POSITIVE (NEGATIVE)
--- NOTE | 2019-12-12 16:46 | ERPHSYRPT ---
- History of Present Illness Time Seen by Provider: 12/12/19 14:20 Patient Subjective Stated Complaint: Patient states that "about a week and a half ago, he began having chest pain a week and a half ago and it has been getting worse since and he can't tolerate it any more." Triage Nursing Assessment: Patient is ambulatory, alert and oriented, pink warm and dry; heart strong and regular, lungs clear, no edema noted. Patient describes chest pain as sharp and rates as 9/10. Physician History: Is an 63-year-old male who presents with a 1-1/2-week complaint of chest pain which seems to radiate the shoulder and all the way down to the hand. This is only occasionally associated with exertion he does have a long history of back problems and was recently diagnosed with degenerative arthritis at the [place]. He denies any nausea vomiting diaphoresis he is chronically short of breath. Cardiac risk factors include only family history and smoking. Timing/Duration: day(s) (10) Activities at Onset: activity Quality: stabbing, throbbing Location: central Chest Pain Radiation: arm Severity of Pain-Max: moderate Severity of Pain-Current: moderate Modifying Factors: Improves With: nothing Associated Symptoms: shortness of breath, No nausea, No vomiting, No palpitations, No hurts to breathe, No diaphoresis Prior Chest Pain/Cardiac Workup: no prior cardiac workup Nitro Today/Relief: no nitro taken today Aspirin Treatment Today: no aspirin today Allergies/Adverse Reactions: penicillin G Allergy (Unknown, Verified 12/12/19 14:45) Home Medications: Albuterol 2.5 mg/3 ml Neb [Proventil 2.5 mg/3 ml Neb] 2.5 mg IH Q4HPRN PRN 02/02/19 [History] Omeprazole 10 mg PO 12/12/19 [History] Hx Tetanus, Diphtheria Vaccination/Date Given: Yes Hx Influenza Vaccination/Date Given: No Hx Pneumococcal Vaccination/Date Given: No - Review of Systems Constitutional: No Fever, No Chills Eyes: No Symptoms Ears, Nose, & Throat: No Symptoms Respiratory: No Cough, No Dyspnea Cardiac: Chest Pain, No Edema, No Syncope Abdominal/Gastrointestinal: No Abdominal Pain, No Nausea, No Vomiting, No Diarrhea Genitourinary Symptoms: No Dysuria Musculoskeletal: No Back Pain, No Neck Pain Skin: No Rash Neurological: No Dizziness, No Focal Weakness, No Sensory Changes Psychological: No Symptoms Endocrine: No Symptoms All Other Systems: Reviewed and Negative - Past Medical History Pertinent Past Medical History: Yes Neurological History: No Pertinent History ENT History: No Pertinent History Cardiac History: No Pertinent History Respiratory History: Bronchitis, COPD, Emphysema, Other Endocrine Medical History: No Pertinent History Musculoskeletal History: No Pertinent History GI Medical History: No Pertinent History History: No Pertinent History Psycho-Social History: No Pertinent History Male Reproductive Disorders: No Pertinent History - Past Surgical History Past Surgical History: No Neuro Surgical History: No Pertinent History Cardiac: No Pertinent History Respiratory: No Pertinent History Gastrointestinal: Hernia Repair Genitourinary: No Pertinent History Musculoskeletal: No Pertinent History Male Surgical History: No Pertinent History - Social History Smoking Status: Current every day smoker How long have you smoked: 40 Exposure to second hand smoke: No Alcohol Use: Chronic Drug Use: marijuana Patient Lives Alone: No Significant Family History: no pertinent family hx - Nursing Vital Signs Nursing Vital Signs: Initial Vital Signs Temperature 98.1 F 12/12/19 14:09 Pulse Rate 82 12/12/19 14:09 Respiratory Rate 19 12/12/19 14:09 Blood Pressure 154/90 12/12/19 14:09 O2 Sat by Pulse Oximetry 98 12/12/19 14:09 Pain Scale Pain Intensity 9 - Physical Exam General Appearance: no apparent distress, alert Eye Exam: PERRL/EOMI, eyes nml inspection Ears, Nose, Throat Exam: normal ENT inspection, moist mucous membranes Neck Exam: normal inspection, non-tender, supple, full range of motion Respiratory Exam: normal breath sounds, lungs clear, No respiratory distress Cardiovascular Exam: regular rate/rhythm, normal heart sounds Gastrointestinal/Abdomen Exam: soft, No tenderness, No mass Back Exam: normal inspection, No CVA tenderness, No vertebral tenderness Extremity Exam: normal inspection, normal range of motion Neurologic Exam: alert, oriented x 3, cooperative, normal mood/affect, sensation nml, No motor deficits Skin Exam: normal color, warm, dry SpO2: 98 - Course Nursing assessment & vital signs reviewed: Yes EKG Interpreted by Me: Sinus Rhythm, Left [place] Deviation, NORMAL INTERVALS, Non- specific ST Changes - Radiology Exams Chest X-ray Interpretation: Other (Radiologist as no acute changes chronic changes are noted) Ordered Tests: Active Orders 24 hr Category Date Time Status Air Crew Officer STAT Care 12/12/19 14:17 Active EKG-ER Only STAT Care 12/12/19 14:16 Active CHEST 1 VIEW (PORTABLE) Stat Exams 12/12/19 14:41 Completed AMYLASE Stat Lab 12/12/19 14:30 Completed CBC W DIFF Stat Lab 12/12/19 14:30 Completed CMP Stat Lab 12/12/19 14:30 Completed D-DIMER QUANTITATIVE Stat Lab 12/12/19 14:30 Completed Erythrocyte Sedimentation Rate Stat Lab 12/12/19 14:30 Completed LIPASE Stat Lab 12/12/19 14:30 Completed Lactic Acid Stat Lab 12/12/19 14:16 Completed MAGNESIUM Stat Lab 12/12/19 14:30 Completed PROTIME WITH INR Stat Lab 12/12/19 14:30 Completed TROPONIN Q3H Lab 12/12/19 14:30 Completed TROPONIN Q3H Lab 12/12/19 17:30 Ordered TROPONIN Q3H Lab 12/12/19 20:30 Ordered TROPONIN Q3H Lab 12/12/19 23:30 Ordered TROPONIN Q3H Lab 12/13/19 02:30 Ordered UA W/RFX UR CULTURE Stat Lab 12/12/19 Completed Urine Triage Profile Stat Lab 12/12/19 14:59 Completed Medication Summary Generic Name Dose Route Start Last Admin Trade Name Freq PRN Reason Stop Dose Admin Sodium Chloride 1,000 mls @ 100 mls/hr 12/12/19 14:30 12/12/19 14:55 Sodium Chloride 0.9% 1000 Ml IV 01/11/20 14:29 100 mls/hr .Q10H GALO Administration Discontinued Medications Generic Name Dose Route Start Last Admin Trade Name Freq PRN Reason Stop Dose Admin Aspirin 324 mg 12/12/19 14:16 12/12/19 14:55 Baby Aspirin 81 Mg Chew PO 12/12/19 14:17 324 mg STAT ONE Administration Aspirin Confirm 12/12/19 14:50 Baby Aspirin 81 Mg Chew Administered 12/12/19 14:51 Dose 324 mg .ROUTE .STK-MED ONE Morphine Sulfate 4 mg 12/12/19 14:16 12/12/19 14:55 Morphine Sulfate 4 Mg Inj IV 12/12/19 14:17 4 mg STAT ONE Administration Morphine Sulfate Confirm 12/12/19 14:51 Morphine Sulfate 4 Mg Inj Administered 12/12/19 14:52 Dose 4 mg .ROUTE .STK-MED ONE Lab/Rad Data: Laboratory Result Diagrams 12/12/19 14:30 12/12/19 14:30 Laboratory Results 12/12/19 12/12/19 12/12/19 Range/Units Unknown 14:59 14:30 WBC (4.0-10.5) K/mm3 RBC (4.1-5.6) M/mm3 Hgb (12.5-18.0) gm/dl Hct (42-50) % MCV (78-100) fl MCH (26-32) pg MCHC (32-36) g/dl RDW (11.5-14.0) % Plt Count (150-450) K/mm3 MPV (7.5-11.0) fl Gran % (36.0-66.0) % Eos # (Auto) (0-0.5) Absolute Lymphs (auto) (1.0-4.6) Absolute Monos (auto) (0.0-1.3) Lymphocytes % (24.0-44.0) % Monocytes % (0.0-12.0) % Eosinophils % (0.00-5.0) % Basophils % (0.0-0.4) % Absolute Granulocytes (1.4-6.9) Basophils # (0-0.4) ESR (0-15) mm/hr PT (8.83-12.87) SECONDS INR (0.8-3.0) D-Dimer (215-500) ng/mL Sodium (137-145) mmol/L Potassium (3.5-5.1) mmol/L Chloride (98-107) mmol/L Carbon Dioxide (22-30) mmol/L Anion Gap (5-15) MEQ/L BUN (9-20) mg/dL Creatinine (0.66-1.25) mg/dL Estimated GFR ML/MIN Glucose (74-106) mg/dL Lactic Acid (0.4-2.0) Calcium (8.4-10.2) mg/dL Magnesium (1.6-2.3) mg/dL Total Bilirubin (0.2-1.3) mg/dL AST (17-59) U/L ALT (0-50) U/L Alkaline Phosphatase (38-126) U/L Troponin I < 0.012 (0.000-0.034) ng/mL Serum Total Protein (6.3-8.2) g/dL Albumin (3.5-5.0) g/dL Amylase (30-110) U/L Lipase (23-300) U/L Urine Color YELLOW (YELLOW) Urine Appearance CLEAR (CLEAR) Urine pH 7.0 (5-6) Ur Specific [place] 1.013 (1.005-1.025) Urine Protein NEGATIVE (Negative) Urine Ketones NEGATIVE (NEGATIVE) Urine Blood NEGATIVE (0-5) Jass/ul Urine Nitrite NEGATIVE (NEGATIVE) Urine Bilirubin NEGATIVE (NEGATIVE) Urine Urobilinogen NEGATIVE (0-1) mg/dL Ur Leukocyte Esterase NEGATIVE (NEGATIVE) Urine WBC (Auto) NONE (0-5) /HPF Urine RBC (Auto) NONE (0-2) /HPF U Epithel Cells (Auto) NONE (FEW) /HPF Urine Bacteria (Auto) NONE (NEGATIVE) /HPF Urine Mucus (Auto) SLIGHT (NEGATIVE) /HPF Urine Culture Reflexed NO (NO) Urine Glucose NEGATIVE (NEGATIVE) mg/dL Urine Opiates Level NEGATIVE (NEGATIVE) Ur Methadone NEGATIVE (NEGATIVE) Urine Barbiturates NEGATIVE (NEGATIVE) Ur Phencyclidine (PCP) NEGATIVE (NEGATIVE) Urine Amphetamine NEGATIVE (NEGATIVE) U Benzodiazepine Level NEGATIVE (NEGATIVE) Urine Cocaine NEGATIVE (NEGATIVE) Urine Marijuana (THC) POSITIVE (NEGATIVE) 12/12/19 12/12/19 12/12/19 Range/Units 14:30 14:30 14:30 WBC 6.1 (4.0-10.5) K/mm3 RBC 5.35 (4.1-5.6) M/mm3 Hgb 17.1 (12.5-18.0) gm/dl Hct 50.6 H (42-50) % MCV 94.6 (78-100) fl MCH 32.0 (26-32) pg MCHC 33.8 (32-36) g/dl RDW 14.9 H (11.5-14.0) % Plt Count 199 (150-450) K/mm3 MPV 10.3 (7.5-11.0) fl Gran % 47.1 (36.0-66.0) % Eos # (Auto) 0.22 (0-0.5) Absolute Lymphs (auto) 1.80 (1.0-4.6) Absolute Monos (auto) 1.15 (0.0-1.3) Lymphocytes % 29.8 (24.0-44.0) % Monocytes % 19.0 H (0.0-12.0) % Eosinophils % 3.6 (0.00-5.0) % Basophils % 0.5 (0.0-0.4) % Absolute Granulocytes 2.85 (1.4-6.9) Basophils # 0.03 (0-0.4) ESR 4 (0-15) mm/hr PT 11.5 (8.83-12.87) SECONDS INR 1.02 (0.8-3.0) D-Dimer 354 (215-500) ng/mL Sodium 142 (137-145) mmol/L Potassium 3.9 (3.5-5.1) mmol/L Chloride 104 (98-107) mmol/L Carbon Dioxide 27 (22-30) mmol/L Anion Gap 14.2 (5-15) MEQ/L BUN 15 (9-20) mg/dL Creatinine 0.83 (0.66-1.25) mg/dL Estimated GFR > 60.0 ML/MIN Glucose 92 (74-106) mg/dL Lactic Acid (0.4-2.0) Calcium 9.8 (8.4-10.2) mg/dL Magnesium 2.0 (1.6-2.3) mg/dL Total Bilirubin 0.70 (0.2-1.3) mg/dL AST 27 (17-59) U/L ALT 27 (0-50) U/L Alkaline Phosphatase 110 (38-126) U/L Troponin I (0.000-0.034) ng/mL Serum Total Protein 7.9 (6.3-8.2) g/dL Albumin 4.4 (3.5-5.0) g/dL Amylase 104 (30-110) U/L Lipase 180 (23-300) U/L Urine Color (YELLOW) Urine Appearance (CLEAR) Urine pH (5-6) Ur Specific [place] (1.005-1.025) Urine Protein (Negative) Urine Ketones (NEGATIVE) Urine Blood (0-5) Jass/ul Urine Nitrite (NEGATIVE) Urine Bilirubin (NEGATIVE) Urine Urobilinogen (0-1) mg/dL Ur Leukocyte Esterase (NEGATIVE) Urine WBC (Auto) (0-5) /HPF Urine RBC (Auto) (0-2) /HPF U Epithel Cells (Auto) (FEW) /HPF Urine Bacteria (Auto) (NEGATIVE) /HPF Urine Mucus (Auto) (NEGATIVE) /HPF Urine Culture Reflexed (NO) Urine Glucose (NEGATIVE) mg/dL Urine Opiates Level (NEGATIVE) Ur Methadone (NEGATIVE) Urine Barbiturates (NEGATIVE) Ur Phencyclidine (PCP) (NEGATIVE) Urine Amphetamine (NEGATIVE) U Benzodiazepine Level (NEGATIVE) Urine Cocaine (NEGATIVE) Urine Marijuana (THC) (NEGATIVE) 12/12/19 Range/Units 14:16 WBC (4.0-10.5) K/mm3 RBC (4.1-5.6) M/mm3 Hgb (12.5-18.0) gm/dl Hct (42-50) % MCV (78-100) fl MCH (26-32) pg MCHC (32-36) g/dl RDW (11.5-14.0) % Plt Count (150-450) K/mm3 MPV (7.5-11.0) fl Gran % (36.0-66.0) % Eos # (Auto) (0-0.5) Absolute Lymphs (auto) (1.0-4.6) Absolute Monos (auto) (0.0-1.3) Lymphocytes % (24.0-44.0) % Monocytes % (0.0-12.0) % Eosinophils % (0.00-5.0) % Basophils % (0.0-0.4) % Absolute Granulocytes (1.4-6.9) Basophils # (0-0.4) ESR (0-15) mm/hr PT (8.83-12.87) SECONDS INR (0.8-3.0) D-Dimer (215-500) ng/mL Sodium (137-145) mmol/L Potassium (3.5-5.1) mmol/L Chloride (98-107) mmol/L Carbon Dioxide (22-30) mmol/L Anion Gap (5-15) MEQ/L BUN (9-20) mg/dL Creatinine (0.66-1.25) mg/dL Estimated GFR ML/MIN Glucose (74-106) mg/dL Lactic Acid 1.9 (0.4-2.0) Calcium (8.4-10.2) mg/dL Magnesium (1.6-2.3) mg/dL Total Bilirubin (0.2-1.3) mg/dL AST (17-59) U/L ALT (0-50) U/L Alkaline Phosphatase (38-126) U/L Troponin I (0.000-0.034) ng/mL Serum Total Protein (6.3-8.2) g/dL Albumin (3.5-5.0) g/dL Amylase (30-110) U/L Lipase (23-300) U/L Urine Color (YELLOW) Urine Appearance (CLEAR) Urine pH (5-6) Ur Specific [place] (1.005-1.025) Urine Protein (Negative) Urine Ketones (NEGATIVE) Urine Blood (0-5) Jass/ul Urine Nitrite (NEGATIVE) Urine Bilirubin (NEGATIVE) Urine Urobilinogen (0-1) mg/dL Ur Leukocyte Esterase (NEGATIVE) Urine WBC (Auto) (0-5) /HPF Urine RBC (Auto) (0-2) /HPF U Epithel Cells (Auto) (FEW) /HPF Urine Bacteria (Auto) (NEGATIVE) /HPF Urine Mucus (Auto) (NEGATIVE) /HPF Urine Culture Reflexed (NO) Urine Glucose (NEGATIVE) mg/dL Urine Opiates Level (NEGATIVE) Ur Methadone (NEGATIVE) Urine Barbiturates (NEGATIVE) Ur Phencyclidine (PCP) (NEGATIVE) Urine Amphetamine (NEGATIVE) U Benzodiazepine Level (NEGATIVE) Urine Cocaine (NEGATIVE) Urine Marijuana (THC) (NEGATIVE) - Progress Progress: unchanged Air Movement: good Blood Culture(s) Obtained: No Antibiotics given: No - Departure Departure Disposition: Home Clinical Impression: Cervical radiculopathy Condition: Stable Critical Care Time: No Referrals: [facility]OSP[facility],'S [Primary Care Provider] - Instructions: Radiculopathy Prescriptions: Hydrocodone/APAP 5-325 Tab^^^ [[place] 5-325 Tablet^^^] 1 tab PO Q6HPRN PRN #10 tablet MDD 6 PRN Reason: Pain Celecoxib 100 mg [celeBREX 100 MG] 100 mg PO BID 30 Days #60 capsule
[2019-12-12 17:06] VITALS: BP 148/92; PULSE 64
== END 2019-12-12 17:50 | disposition home or self-care (01) ==
LOC: ED 14:09
DX: M54.12 Radiculopathy, cervical region (principal); J44.9 Chronic obstructive pulmonary disease, unspecified
CPT/HCPCS: 36415; 71045; 80053; 80307; 81001; 82150; 83605; 83690; 83735; 84484; 85025; 85379; 85610; 85652; 93005; 93041; 96374; 99284; J2270; A9270-GY

== ENCOUNTER 2020-05-08 09:47 | Observation (INO) | payer MEDICARE ==
[2020-05-08] MEDS ORDERED: MORPHINE SULFATE 2 MG INJ IV ONE (09:59)
[2020-05-08] MEDS ORDERED: Sodium Chloride 0.9% 1000 ML 1,000 ML IV SCH (10:00)
[2020-05-08] MEDS ORDERED: MORPHINE SULFATE 2 MG INJ ONE (10:05)
[2020-05-08] MEDS ORDERED: Sodium Chloride 0.9% 1000 ML 1,000 ML ONE (10:05)
[2020-05-08 10:38] LABS: Absolute Neutrophil Ct (ANC) 9.98 (1.4-6.9); BASOPHIL % 0.1 % (0.0-0.4); Basophil (Absolute #) 0.01 (0-0.4); Eosinophil % 0.1 % (0.00-5.0); Eosinophil (Absolute #) 0.01 (0-0.5); Hematocrit 54.3 % (42-50); Hemoglobin 18.1 gm/dl (12.5-18.0); Lymphocyte (Absolute #) 0.73 (1.0-4.6); Lymphocytes % 5.9 % (24.0-44.0); Mean Cell Volume 99.5 fl (78-100); Mean Corpuscular Hemoglobin 33.2 pg (26-32); Mean Corpuscular Hgb Concent. 33.3 g/dl (32-36); Mean Platelet Volume 10.3 fl (7.5-11.0); Monocyte (Absolute #) 1.66 (0.0-1.3); Monocytes % 13.4 % (0.0-12.0); Neutrophil % 80.5 % (36.0-66.0); Platelet Count 179 K/mm3 (150-450); Red Blood Count 5.46 M/mm3 (4.1-5.6); Red Cell Distribution Width 14.6 % (11.5-14.0); White Blood Count 12.4 K/mm3 (4.0-10.5)
[2020-05-08 10:55] LABS: ALBUMIN 4.5 g/dL (3.5-5.0); ALKALINE PHOSPHATASE 83 U/L (38-126); ANION GAP 12.9 MEQ/L (5-15); BLOOD UREA NITROGEN 17 mg/dL (9-20); CHLORIDE 105 mmol/L (98-107); Carbon Dioxide 23 mmol/L (22-30); Creatinine 1 0.77 mg/dL (0.66-1.25); Glucose 127 mg/dL (74-106); SGOT/AST 29 U/L (17-59); SGPT/ALT 29 U/L (0-50); SODIUM 137 mmol/L (137-145); Total Protein 7.6 g/dL (6.3-8.2)
[2020-05-08 11:06] LABS: LIPASE 2715 U/L (23-300)
[2020-05-08] MEDS ORDERED: MORPHINE SULFATE 4 MG INJ IV ONE (11:36)
[2020-05-08] MEDS ORDERED: MORPHINE SULFATE 4 MG INJ ONE (11:40)
[2020-05-08] MEDS ORDERED: Zofran 4 MG/2 ML VIAL IV ONE (11:48)
[2020-05-08] MEDS ORDERED: Zofran 4 MG/2 ML VIAL ONE (11:49)
--- NOTE | 2020-05-08 12:28 | XRAY ---
Indication: Chest pain. Nausea, vomiting, diarrhea. Conventional contrast enhanced CTA chest performed using 99 cc Isovue 370 contrast. Two-dimensional sagittal and coronal reformatted images obtained. Additional 3-dimensional reformatted images obtained using separate workstation. Comparison: None Thoracic aorta is normal in course and caliber without arteriosclerotic disease. Aortic arch demonstrates anatomic variant for bovine arch. Heart is not enlarged. Small subcarinal and left perihilar calcified nodes. No pathologic mediastinal/hilar lymphadenopathy. Small hiatal hernia. Lungs demonstrates milds pulmonary emphysema greatest in both upper lobes. Mild lingula and bibasilar subsegmental atelectasis/scarring. No suspicious pulmonary mass, infiltrate, or effusion. Bony thorax intact with minimal degenerative changes throughout the spine. CTA abdomen/pelvis reported separately. Impression: 1. Normal CTA chest. 2. Incidental pulmonary emphysema, atelectasis/scarring, and small hiatal hernia.
--- NOTE | 2020-05-08 12:30 | XRAY ---
Indication: Chest pain. Nausea, vomiting, diarrhea. Conventional contrast enhanced CTA abdomen/pelvis performed using 99 cc Isovue 370 contrast. Two-dimensional sagittal and coronal reformatted images obtained. Additional 3-dimensional reformatted images obtained using separate workstation. Comparison: CT abdomen/pelvis without contrast September 16, 2018. Abdominal aorta remains normal in course/caliber with mild scattered aortoiliac calcifications. Normal patent branching celiac, superior mesenteric, and inferior mesenteric arteries. A single renal artery supplies each kidney again with minimal calcifications at origin left renal artery. Noncontrasted stomach and bowel loops appear nonobstructed. Normal appendix. Stable mild scattered descending and sigmoid diverticulosis. Head of pancreas and lesser degree body demonstrates new edema and peripancreatic stranding favoring acute pancreatitis. Small free fluid adjacently but no walled off free fluid or air. Stable hepatic/splenic calcified granulomas. Remaining liver, gallbladder, pancreas, spleen, adrenal glands, kidneys, ureters, and bladder appear unremarkable. Osseous structures intact with stable mild degenerative changes throughout the spine, remote-appearing L1 fracture with near complete collapse, and L5 Schmorl node. Impression: 1. New pancreatitis with small free fluid. 2. Stable mild scattered arteriosclerotic disease. Otherwise negative CTA abdominal aorta. 3. Stable incidental colonic diverticulosis, remote L1 fracture, and evidence for old granulomatous disease.
--- NOTE | 2020-05-08 12:49 | ERPHSYRPT ---
- History of Present Illness Time Seen by Provider: 05/08/20 10:00 Historian: patient Exam Limitations: no limitations Patient Subjective Stated Complaint: Pt states "I went to bed last night and my chest and belly were hurting. It is not any better this morning. I cannot take it anymore." Triage Nursing Assessment: Pt presented alert and orietned X 3, skin pwd Pt ambulates with a grunting gait. Pt moans when he moves and holds his abdomen. Physician History: Patient is a 64-year-old male who presents to our ED with complaints of epigastric pain. Pain started yesterday evening. Patient awoke this morning with the same level of pain. Patient vomited once. Patient unable to tolerate p.o. Pain described as an ache that is well localized. No radiation. Pain worse with palpation and movement. Pain improved with rest. No fever. No trauma. No diarrhea. No recent travel. Patient denies shortness of breath. Patient voices no other complaints at this time. Timing/Duration: yesterday Activities at Onset: none Quality: aching Abdominal Pain Onset Location: epigastric Pain Radiation: no radiation Severity of Pain-Max: severe Severity of Pain-Current: mild Modifying Factors: Improves With: nothing Associated Symptoms: vomiting (Patient states emesis was green appearing.), No back, No diaphoresis, No diarrhea, No shortness of breath Previous symptoms: no prior history Allergies/Adverse Reactions: penicillin G Allergy (Unknown, Verified 12/12/19 14:45) Home Medications: Albuterol 2.5 mg/3 ml Neb [Proventil 2.5 mg/3 ml Neb] 2.5 mg IH Q4HPRN PRN 02/02/19 [History] Omeprazole 10 mg PO DAILY 12/12/19 [History] Zolpidem Tartrate [Ambien Cr] 6.25 mg PO HS 05/08/20 [History] Hx Tetanus, Diphtheria Vaccination/Date Given: No Hx Influenza Vaccination/Date Given: No Hx Pneumococcal Vaccination/Date Given: No Immunizations Up to Date: Yes Travel Risk - International Travel Have you traveled outside of the country in past 3 weeks: No - Coronavirus Screening Are you exhibiting any of the following symptoms?: No Close contact with a COVID-19 positive Pt in past 14-21 Days: No - Review of Systems Constitutional: No Symptoms, No Fever, No Chills Eyes: No Symptoms Ears, Nose, & Throat: No Symptoms Respiratory: No Symptoms, No Cough, No Dyspnea Cardiac: No Symptoms, No Chest Pain, No Edema, No Syncope Abdominal/Gastrointestinal: No Symptoms, No Abdominal Pain, No Nausea, No Vomiting, No Diarrhea Genitourinary Symptoms: No Symptoms, No Dysuria Musculoskeletal: No Symptoms, No Back Pain, No Neck Pain Skin: No Symptoms, No Rash Neurological: No Symptoms, No Dizziness, No Focal Weakness, No Sensory Changes Psychological: No Symptoms Endocrine: No Symptoms Hematologic/Lymphatic: No Symptoms Immunological/Allergic: No Symptoms All Other Systems: Reviewed and Negative - Past Medical History Pertinent Past Medical History: Yes Neurological History: No Pertinent History ENT History: No Pertinent History Cardiac History: No Pertinent History Respiratory History: Bronchitis, COPD, Emphysema, Other Endocrine Medical History: No Pertinent History Musculoskeletal History: No Pertinent History GI Medical History: No Pertinent History History: No Pertinent History Psycho-Social History: No Pertinent History Male Reproductive Disorders: No Pertinent History - Past Surgical History Past Surgical History: No Neuro Surgical History: No Pertinent History Cardiac: No Pertinent History Respiratory: No Pertinent History Gastrointestinal: Hernia Repair Genitourinary: No Pertinent History Musculoskeletal: No Pertinent History Male Surgical History: No Pertinent History - Social History Smoking Status: Current every day smoker How long have you smoked: years Exposure to second hand smoke: Yes Alcohol Use: Chronic Drug Use: marijuana Patient Lives Alone: No Significant Family History: no pertinent family hx - Nursing Vital Signs Nursing Vital Signs: Initial Vital Signs Temperature 97.7 F 05/08/20 09:51 Pulse Rate 84 05/08/20 09:51 Respiratory Rate 24 05/08/20 09:51 Blood Pressure 156/94 05/08/20 09:51 O2 Sat by Pulse Oximetry 95 05/08/20 09:51 Pain Scale Pain Intensity 6 - Physical Exam General Appearance: no apparent distress, alert Eye Exam: PERRL/EOMI, eyes nml inspection Ears, Nose, Throat Exam: normal ENT inspection, pharynx normal, moist mucous membranes Neck Exam: normal inspection, non-tender, supple, full range of motion Respiratory Exam: normal breath sounds, lungs clear, No respiratory distress Cardiovascular Exam: regular rate/rhythm, normal heart sounds Gastrointestinal/Abdomen Exam: soft, tenderness, other (Gastric tenderness to palpation. Overlying soft tissue intact. No evidence of trauma.), No mass, No guarding, No ecchymosis, No pulsatile mass, No rebound Back Exam: normal inspection, normal range of motion, No CVA tenderness, No vertebral tenderness Extremity Exam: normal inspection, normal range of motion, pelvis stable Neurologic Exam: alert, oriented x 3, cooperative, normal mood/affect, nml cerebellar function, sensation nml, No motor deficits Skin Exam: normal color, warm, dry Lymphatic Exam: No adenopathy SpO2 Interpretation: normal SpO2: 98 O2 Delivery: Room Air - Course Nursing assessment & vital signs reviewed: Yes EKG Interpreted by Me: RATE (77), Sinus Rhythm, NORMAL AXIS, NORMAL INTERVALS - CT Exams Chest CT Interpretation: Tele-radiologist Report (Normal CTA chest. Incidental pulmonary emphysema, atelectasis/scarring, and small hiatal hernia.) Abdomen/Pelvis CT Interpretation: Tele-radiologist Report (New pancreatitis with small free fluid. Stable scattered arterial sclerotic disease. Otherwise negative CT abdominal aorta. Stable incidental colonic diverticulosis, remote L1 fracture and evidence for old granulomatous disease.) Ordered Tests: Active Orders 24 hr Category Date Time Status EKG-ER Only STAT Care 05/08/20 09:59 Active IV Insertion STAT Care 05/08/20 09:59 Active CTA ABD/PEL W AND/OR W/O CONTR [CT] Stat Exams 05/08/20 11:45 Completed CTA CHEST W AND/OR WO [CT] Stat Exams 05/08/20 10:28 Completed CBC W DIFF Stat Lab 05/08/20 10:30 Completed CMP Stat Lab 05/08/20 10:30 Completed LIPASE Stat Lab 05/08/20 10:30 Completed TROPONIN Q3H Lab 05/08/20 10:30 Completed TROPONIN Q3H Lab 05/08/20 13:00 Ordered TROPONIN Q3H Lab 05/08/20 16:00 Ordered TROPONIN Q3H Lab 05/08/20 19:00 Ordered TROPONIN Q3H Lab 05/08/20 22:00 Ordered UA W/RFX UR CULTURE Stat Lab 05/08/20 12:30 Completed Urine Triage Profile Stat Lab 05/08/20 12:30 Received Transfer Order Routine Transfer 05/08/20 Ordered Medication Summary Generic Name Dose Route Start Last Admin Trade Name Freq PRN Reason Stop Dose Admin Sodium Chloride 1,000 mls @ 100 mls/hr 05/08/20 10:00 05/08/20 10:09 Sodium Chloride 0.9% 1000 Ml IV 06/07/20 09:59 100 mls/hr .Q10H GALO Administration Discontinued Medications Generic Name Dose Route Start Last Admin Trade Name Mima PRN Reason Stop Dose Admin Morphine Sulfate 2 mg 05/08/20 09:59 05/08/20 10:07 Morphine Sulfate 2 Mg Inj IV 05/08/20 10:00 2 mg STAT ONE Administration Morphine Sulfate Confirm 05/08/20 10:05 Morphine Sulfate 2 Mg Inj Administered 05/08/20 10:06 Dose 2 mg .ROUTE .STK-MED ONE Morphine Sulfate 4 mg 05/08/20 11:36 05/08/20 11:42 Morphine Sulfate 4 Mg Inj IV 05/08/20 11:37 4 mg STAT ONE Administration Morphine Sulfate Confirm 05/08/20 11:40 Morphine Sulfate 4 Mg Inj Administered 05/08/20 11:41 Dose 4 mg .ROUTE .STK-MED ONE Ondansetron HCl 4 mg 05/08/20 11:48 05/08/20 11:50 Zofran 4 Mg/2 Ml Vial IV 05/08/20 11:49 4 mg STAT ONE Administration Ondansetron HCl Confirm 05/08/20 11:49 Zofran 4 Mg/2 Ml Vial Administered 05/08/20 11:50 Dose 4 mg .ROUTE .STK-MED ONE Lab/Rad Data: Laboratory Result Diagrams 05/08/20 10:30 05/08/20 10:30 Laboratory Results 05/08/20 05/08/20 05/08/20 Range/Units 12:30 10:30 10:30 WBC (4.0-10.5) K/mm3 RBC (4.1-5.6) M/mm3 Hgb (12.5-18.0) gm/dl Hct (42-50) % MCV (78-100) fl MCH (26-32) pg MCHC (32-36) g/dl RDW (11.5-14.0) % Plt Count (150-450) K/mm3 MPV (7.5-11.0) fl Gran % (36.0-66.0) % Eos # (Auto) (0-0.5) Absolute Lymphs (auto) (1.0-4.6) Absolute Monos (auto) (0.0-1.3) Lymphocytes % (24.0-44.0) % Monocytes % (0.0-12.0) % Eosinophils % (0.00-5.0) % Basophils % (0.0-0.4) % Absolute Granulocytes (1.4-6.9) Basophils # (0-0.4) Sodium 137 (137-145) mmol/L Potassium 4.0 (3.5-5.1) mmol/L Chloride 105 (98-107) mmol/L Carbon Dioxide 23 (22-30) mmol/L Anion Gap 12.9 (5-15) MEQ/L BUN 17 (9-20) mg/dL Creatinine 0.77 (0.66-1.25) mg/dL Estimated GFR > 60.0 ML/MIN Glucose 127 H (74-106) mg/dL Calcium 9.0 (8.4-10.2) mg/dL Total Bilirubin 1.50 H (0.2-1.3) mg/dL AST 29 (17-59) U/L ALT 29 (0-50) U/L Alkaline Phosphatase 83 (38-126) U/L Troponin I < 0.012 (0.000-0.034) ng/mL Serum Total Protein 7.6 (6.3-8.2) g/dL Albumin 4.5 (3.5-5.0) g/dL Lipase 2715 H (23-300) U/L Urine Color YELLOW (YELLOW) Urine Appearance CLEAR (CLEAR) Urine pH 8.0 (5-6) Ur Specific [place] 1.041 (1.005-1.025) Urine Protein 30 (Negative) Urine Ketones SMALL (NEGATIVE) Urine Blood NEGATIVE (0-5) Jass/ul Urine Nitrite NEGATIVE (NEGATIVE) Urine Bilirubin NEGATIVE (NEGATIVE) Urine Urobilinogen NEGATIVE (0-1) mg/dL Ur Leukocyte Esterase NEGATIVE (NEGATIVE) Urine WBC (Auto) NONE (0-5) /HPF Urine RBC (Auto) 0-2 (0-2) /HPF U Epithel Cells (Auto) NONE (FEW) /HPF Urine Bacteria (Auto) NONE (NEGATIVE) /HPF Urine Mucus (Auto) SLIGHT (NEGATIVE) /HPF Urine Culture Reflexed NO (NO) Urine Glucose NEGATIVE (NEGATIVE) mg/dL 05/08/20 Range/Units 10:30 WBC 12.4 H (4.0-10.5) K/mm3 RBC 5.46 (4.1-5.6) M/mm3 Hgb 18.1 H (12.5-18.0) gm/dl Hct 54.3 H (42-50) % MCV 99.5 (78-100) fl MCH 33.2 H (26-32) pg MCHC 33.3 (32-36) g/dl RDW 14.6 H (11.5-14.0) % Plt Count 179 (150-450) K/mm3 MPV 10.3 (7.5-11.0) fl Gran % 80.5 H (36.0-66.0) % Eos # (Auto) 0.01 (0-0.5) Absolute Lymphs (auto) 0.73 L (1.0-4.6) Absolute Monos (auto) 1.66 H (0.0-1.3) Lymphocytes % 5.9 L (24.0-44.0) % Monocytes % 13.4 H (0.0-12.0) % Eosinophils % 0.1 (0.00-5.0) % Basophils % 0.1 (0.0-0.4) % Absolute Granulocytes 9.98 H (1.4-6.9) Basophils # 0.01 (0-0.4) Sodium (137-145) mmol/L Potassium (3.5-5.1) mmol/L Chloride (98-107) mmol/L Carbon Dioxide (22-30) mmol/L Anion Gap (5-15) MEQ/L BUN (9-20) mg/dL Creatinine (0.66-1.25) mg/dL Estimated GFR ML/MIN Glucose (74-106) mg/dL Calcium (8.4-10.2) mg/dL Total Bilirubin (0.2-1.3) mg/dL AST (17-59) U/L ALT (0-50) U/L Alkaline Phosphatase (38-126) U/L Troponin I (0.000-0.034) ng/mL Serum Total Protein (6.3-8.2) g/dL Albumin (3.5-5.0) g/dL Lipase (23-300) U/L Urine Color (YELLOW) Urine Appearance (CLEAR) Urine pH (5-6) Ur Specific [place] (1.005-1.025) Urine Protein (Negative) Urine Ketones (NEGATIVE) Urine Blood (0-5) Jass/ul Urine Nitrite (NEGATIVE) Urine Bilirubin (NEGATIVE) Urine Urobilinogen (0-1) mg/dL Ur Leukocyte Esterase (NEGATIVE) Urine WBC (Auto) (0-5) /HPF Urine RBC (Auto) (0-2) /HPF U Epithel Cells (Auto) (FEW) /HPF Urine Bacteria (Auto) (NEGATIVE) /HPF Urine Mucus (Auto) (NEGATIVE) /HPF Urine Culture Reflexed (NO) Urine Glucose (NEGATIVE) mg/dL - Progress Progress: improved Progress Note: 05/08/20 13:09 Patient reassessed. Pain improved. Per laboratory findings and imaging finding patient has pancreatitis. Patient is currently n.p.o. IV fluids infused. Pain medication infused. Case discussed with Dr. Mendoza covering Dr. Marc who accepts admission to observation. Plan of care discussed with patient. He agrees to admission to [facility] for further evaluation and treatment. Discussed with .: Samantha Will see patient in: hospital (observation) Counseled pt/family regarding: lab results, diagnosis, need for follow-up, rad results - Departure Departure Disposition: Observation Clinical Impression: Pulmonary emphysema, Hiatal hernia, Diverticulosis, Pancreatitis, L1 vertebral fracture, Atherosclerosis, Granulomatous disease, Abdominal pain Condition: Stable Critical Care Time: No Referrals: BRENDA MARC MD [Primary Care Provider] - Instructions: Chronic Obstructive Pulmonary Disease
[2020-05-08 12:50] LABS: Appearance CLEAR (CLEAR); Bilirubin NEGATIVE (NEGATIVE); Blood NEGATIVE Ery/ul (0-5); Glucose NEGATIVE (NEGATIVE); Ketones SMALL (NEGATIVE); Leukocyte Esterase NEGATIVE (NEGATIVE); Mucus SLIGHT /HPF (NEGATIVE); Nitrite NEGATIVE (NEGATIVE); Protein,Urine Dip 30 (Negative); RBC 0-2 /HPF (0-2); Specific Gravity 1.041 (1.005-1.025); Urobilinogen NEGATIVE mg/dL (0-1)
[2020-05-08 13:18] LABS: Amphetamine,Urine NEGATIVE (NEGATIVE); Barbiturate,Urine NEGATIVE (NEGATIVE); Benzodiazepine,Urine NEGATIVE (NEGATIVE); Cocaine,Urine NEGATIVE (NEGATIVE); Methadone,Urine NEGATIVE (NEGATIVE); Opiate,Urine POSITIVE (NEGATIVE); PCP,Urine NEGATIVE (NEGATIVE); THC,Urine POSITIVE (NEGATIVE)
[2020-05-08] MEDS ORDERED: Hydromorphone 1 mg/ml Ampule IV ONE (13:27)
[2020-05-08] MEDS ORDERED: Hydromorphone 1 mg/ml Ampule ONE (13:29)
[2020-05-08] MEDS: Sodium Chloride 0.9% 1000 ML 1,000 ML IV SCH (16:20)
[2020-05-08] MEDS: MORPHINE SULFATE 4 MG INJ IV PRN ×2 (16:21→20:28)
[2020-05-08] MEDS ORDERED: VENTOLIN COMMON CANISTER IH PRN (19:00)
[2020-05-08 20:08] LABS: Slide Review 1 YES
[2020-05-08] MEDS ORDERED: Phenergan 25 MG INJ IV PRN (20:55)
[2020-05-08] MEDS: Zofran 4 MG/2 ML VIAL IV PRN (21:03)
[2020-05-09] MEDS: MORPHINE SULFATE 4 MG INJ IV PRN ×4 (00:23→13:34)
[2020-05-09] MEDS: Sodium Chloride 0.9% 1000 ML 1,000 ML IV SCH ×3 (02:09→22:42)
[2020-05-09] MEDS: DUONEB 0.5-3 MG/3 ml Neb IH PRN ×4 (04:21→18:48)
[2020-05-09] MEDS: Zofran 4 MG/2 ML VIAL IV PRN ×4 (04:35→18:05)
[2020-05-09 05:24] LABS: Absolute Neutrophil Ct (ANC) 11.82 (1.4-6.9); BASOPHIL % 0.1 % (0.0-0.4); Basophil (Absolute #) 0.01 (0-0.4); Eosinophil % 0.3 % (0.00-5.0); Eosinophil (Absolute #) 0.04 (0-0.5); Hematocrit 50.2 % (42-50); Hemoglobin 16.5 gm/dl (12.5-18.0); Lymphocyte (Absolute #) 1.23 (1.0-4.6); Lymphocytes % 8.3 % (24.0-44.0); Mean Cell Volume 101.2 fl (78-100); Mean Corpuscular Hemoglobin 33.3 pg (26-32); Mean Corpuscular Hgb Concent. 32.9 g/dl (32-36); Mean Platelet Volume 10.5 fl (7.5-11.0); Monocyte (Absolute #) 1.71 (0.0-1.3); Monocytes % 11.5 % (0.0-12.0); Neutrophil % 79.8 % (36.0-66.0); Platelet Count 162 K/mm3 (150-450); Red Blood Count 4.96 M/mm3 (4.1-5.6); Red Cell Distribution Width 14.9 % (11.5-14.0); White Blood Count 14.8 K/mm3 (4.0-10.5)
[2020-05-09 05:45] LABS: ALBUMIN 3.7 g/dL (3.5-5.0); ALKALINE PHOSPHATASE 56 U/L (38-126); ANION GAP 11.2 MEQ/L (5-15); BLOOD UREA NITROGEN 15 mg/dL (9-20); CHLORIDE 104 mmol/L (98-107); Calcium 8.3 mg/dL (8.4-10.2); Carbon Dioxide 24 mmol/L (22-30); Creatinine 1 0.87 mg/dL (0.66-1.25); Glucose 101 mg/dL (74-106); Potassium 3.9 mmol/L (3.5-5.1); SGOT/AST 21 U/L (17-59); SGPT/ALT 19 U/L (0-50); SODIUM 135 mmol/L (137-145); Total Protein 6.6 g/dL (6.3-8.2)
[2020-05-09 07:44] LABS: Slide Review 1 YES
[2020-05-09] MEDS ORDERED: Compazine 10 MG/2 ML IV PRN (09:38)
--- NOTE | 2020-05-09 09:43 | PCM.HP ---
History of Present Illness - Chief Complaint Chief Complaint: pancreatitis History of Present Illness: is a 64 year old male who reported to the ER with a 2 day history of epigastric pain and nausea, vomited x 1 bilious. no fever, no diarrhea or constipation, no blood in the stool or vomitus. no urinary symptoms, reports alcohol use. unable to give direct answer on quantity/frequency, tries to minimize but sounds to be a heavy alcohol user. - Review of Systems Constitutional: No Fever, No Chills Respiratory: No Cough, No Short Of Breath Cardiac: No Chest Pain, No Edema, No Syncope Abdominal/Gastrointestinal: Abdominal Pain, Nausea, Vomiting, No Diarrhea, No Constipation Genitourinary Symptoms: No Dysuria Skin: No Rash All Other Systems: Reviewed and Negative Medications & Allergies Home Medications: Home Medication List Albuterol 2.5 mg/3 ml Neb [Proventil 2.5 mg/3 ml Neb] 2.5 mg IH BID 02/02/19 [History Confirmed 05/08/20] Omeprazole 10 mg PO DAILY 12/12/19 [History Confirmed 05/08/20] Naproxen 500 mg [Naprosyn 500 MG] 500 mg PO BID 05/08/20 [History Confirmed 05/08/20] Zolpidem Tartrate [Ambien Cr] 10 mg PO HS 05/08/20 [History Confirmed 05/08/20] Allergies/Adverse Reactions: Allergies Allergy/AdvReac Type Severity Reaction Status Date / Time penicillin G Allergy Unknown Verified 12/12/19 14:45 - Past Medical History Past Medical History: Yes Neurological History: No Pertinent History ENT History: No Pertinent History Cardiac History: No Pertinent History Respiratory History: Bronchitis, COPD, Emphysema, Other Endocrine Medical History: No Pertinent History Musculoskelatal History: Arthritis GI Medical History: GERD, Pancreatitis History: No Pertinent History Pyscho-Social History: No Pertinent History Male Reproductive Disorders: No Pertinent History Comment: rotator cuff surgery scheduled for June 15 - Past Surgical History Past Surgical History: Yes Neuro Surgical History: No Pertinent History Cardiac History: No Pertinent History Respiratory Surgery: No Pertinent History GI Surgical History: Hernia Repair Genitourinary Surgical Hx: No Pertinent History Musculskeletal Surgical Hx: No Pertinent History Male Surgical History: No Pertinent History - Social History Smoking Status: Current every day smoker How long have you smoked: 40 years Exposure to second hand smoke: Yes Alcohol: Weekly Drug Use: marijuana Significant Family History: no pertinent family hx - Physical Exam Vital Signs: Vital Signs - 24 hr Temp Pulse Pulse Resp BP Pulse Ox 05/09/20 08:00 98.8 F 77 20 152/87 96 05/09/20 07:20 78 20 93 L 05/09/20 04:21 87 22 94 L 05/09/20 04:00 99.8 F 86 20 122/83 92 L 05/09/20 00:00 99.7 F 88 18 140/92 92 L 05/08/20 21:48 87 18 93 L 05/08/20 20:00 97.6 F 82 14 147/84 93 L 05/08/20 16:39 88 20 98 05/08/20 15:38 97.7 F 87 153/98 98 05/08/20 14:26 98 05/08/20 13:14 98 05/08/20 13:11 87 20 153/98 98 05/08/20 12:11 97.7 F 103 H 22 142/91 98 05/08/20 11:05 97.7 F 80 24 150/97 97 05/08/20 09:51 97.7 F 84 84 24 156/94 95 General Appearance: no apparent distress, alert Neurologic Exam: alert, oriented x 3, cooperative Respiratory Exam: normal breath sounds, lungs clear, No respiratory distress Cardiovascular Exam: regular rate/rhythm, normal heart sounds, normal peripheral pulses Gastrointestinal/Abdomen Exam: tenderness (epigastrium), No distention, No mass, No guarding, No rebound Extremity Exam: normal inspection, normal range of motion, pelvis stable Skin Exam: normal color, warm, dry, No rash Results - Labs Lab/Micro Results: Accuchecks Accucheck Value: 99 Accucheck Value: 98 Accucheck Value: 105 Lab Results-Last 24 Hours 05/08/20 05/08/20 05/08/20 Range/Units 10:30 10:30 10:30 WBC 12.4 H (4.0-10.5) K/mm3 RBC 5.46 (4.1-5.6) M/mm3 Hgb 18.1 H (12.5-18.0) gm/dl Hct 54.3 H (42-50) % MCV 99.5 (78-100) fl MCH 33.2 H (26-32) pg MCHC 33.3 (32-36) g/dl RDW 14.6 H (11.5-14.0) % Plt Count 179 (150-450) K/mm3 MPV 10.3 (7.5-11.0) fl Gran % 80.5 H (36.0-66.0) % Eos # (Auto) 0.01 (0-0.5) Absolute Lymphs (auto) 0.73 L (1.0-4.6) Absolute Monos (auto) 1.66 H (0.0-1.3) Lymphocytes % 5.9 L (24.0-44.0) % Monocytes % 13.4 H (0.0-12.0) % Eosinophils % 0.1 (0.00-5.0) % Basophils % 0.1 (0.0-0.4) % Absolute Granulocytes 9.98 H (1.4-6.9) Basophils # 0.01 (0-0.4) Sodium 137 (137-145) mmol/L Potassium 4.0 (3.5-5.1) mmol/L Chloride 105 (98-107) mmol/L Carbon Dioxide 23 (22-30) mmol/L Anion Gap 12.9 (5-15) MEQ/L BUN 17 (9-20) mg/dL Creatinine 0.77 (0.66-1.25) mg/dL Estimated GFR > 60.0 ML/MIN Glucose 127 H (74-106) mg/dL Calcium 9.0 (8.4-10.2) mg/dL Total Bilirubin 1.50 H (0.2-1.3) mg/dL AST 29 (17-59) U/L ALT 29 (0-50) U/L Alkaline Phosphatase 83 (38-126) U/L Troponin I < 0.012 (0.000-0.034) ng/mL Serum Total Protein 7.6 (6.3-8.2) g/dL Albumin 4.5 (3.5-5.0) g/dL Lipase 2715 H (23-300) U/L Urine Color (YELLOW) Urine Appearance (CLEAR) Urine pH (5-6) Ur Specific [place] (1.005-1.025) Urine Protein (Negative) Urine Ketones (NEGATIVE) Urine Blood (0-5) Jass/ul Urine Nitrite (NEGATIVE) Urine Bilirubin (NEGATIVE) Urine Urobilinogen (0-1) mg/dL Ur Leukocyte Esterase (NEGATIVE) Urine WBC (Auto) (0-5) /HPF Urine RBC (Auto) (0-2) /HPF U Epithel Cells (Auto) (FEW) /HPF Urine Bacteria (Auto) (NEGATIVE) /HPF Urine Mucus (Auto) (NEGATIVE) /HPF Urine Culture Reflexed (NO) Urine Glucose (NEGATIVE) mg/dL Urine Opiates Level (NEGATIVE) Ur Methadone (NEGATIVE) Urine Barbiturates (NEGATIVE) Ur Phencyclidine (PCP) (NEGATIVE) Urine Amphetamine (NEGATIVE) U Benzodiazepine Level (NEGATIVE) Urine Cocaine (NEGATIVE) Urine Marijuana (THC) (NEGATIVE) Slides for Path Review YES 05/08/20 05/08/20 05/08/20 Range/Units 12:30 12:30 13:00 WBC (4.0-10.5) K/mm3 RBC (4.1-5.6) M/mm3 Hgb (12.5-18.0) gm/dl Hct (42-50) % MCV (78-100) fl MCH (26-32) pg MCHC (32-36) g/dl RDW (11.5-14.0) % Plt Count (150-450) K/mm3 MPV (7.5-11.0) fl Gran % (36.0-66.0) % Eos # (Auto) (0-0.5) Absolute Lymphs (auto) (1.0-4.6) Absolute Monos (auto) (0.0-1.3) Lymphocytes % (24.0-44.0) % Monocytes % (0.0-12.0) % Eosinophils % (0.00-5.0) % Basophils % (0.0-0.4) % Absolute Granulocytes (1.4-6.9) Basophils # (0-0.4) Sodium (137-145) mmol/L Potassium (3.5-5.1) mmol/L Chloride (98-107) mmol/L Carbon Dioxide (22-30) mmol/L Anion Gap (5-15) MEQ/L BUN (9-20) mg/dL Creatinine (0.66-1.25) mg/dL Estimated GFR ML/MIN Glucose (74-106) mg/dL Calcium (8.4-10.2) mg/dL Total Bilirubin (0.2-1.3) mg/dL AST (17-59) U/L ALT (0-50) U/L Alkaline Phosphatase (38-126) U/L Troponin I < 0.012 (0.000-0.034) ng/mL Serum Total Protein (6.3-8.2) g/dL Albumin (3.5-5.0) g/dL Lipase (23-300) U/L Urine Color YELLOW (YELLOW) Urine Appearance CLEAR (CLEAR) Urine pH 8.0 (5-6) Ur Specific [place] 1.041 (1.005-1.025) Urine Protein 30 (Negative) Urine Ketones SMALL (NEGATIVE) Urine Blood NEGATIVE (0-5) Jass/ul Urine Nitrite NEGATIVE (NEGATIVE) Urine Bilirubin NEGATIVE (NEGATIVE) Urine Urobilinogen NEGATIVE (0-1) mg/dL Ur Leukocyte Esterase NEGATIVE (NEGATIVE) Urine WBC (Auto) NONE (0-5) /HPF Urine RBC (Auto) 0-2 (0-2) /HPF U Epithel Cells (Auto) NONE (FEW) /HPF Urine Bacteria (Auto) NONE (NEGATIVE) /HPF Urine Mucus (Auto) SLIGHT (NEGATIVE) /HPF Urine Culture Reflexed NO (NO) Urine Glucose NEGATIVE (NEGATIVE) mg/dL Urine Opiates Level POSITIVE (NEGATIVE) Ur Methadone NEGATIVE (NEGATIVE) Urine Barbiturates NEGATIVE (NEGATIVE) Ur Phencyclidine (PCP) NEGATIVE (NEGATIVE) Urine Amphetamine NEGATIVE (NEGATIVE) U Benzodiazepine Level NEGATIVE (NEGATIVE) Urine Cocaine NEGATIVE (NEGATIVE) Urine Marijuana (THC) POSITIVE (NEGATIVE) Slides for Path Review 05/08/20 05/08/20 05/08/20 Range/Units 16:55 19:15 21:50 WBC (4.0-10.5) K/mm3 RBC (4.1-5.6) M/mm3 Hgb (12.5-18.0) gm/dl Hct (42-50) % MCV (78-100) fl MCH (26-32) pg MCHC (32-36) g/dl RDW (11.5-14.0) % Plt Count (150-450) K/mm3 MPV (7.5-11.0) fl Gran % (36.0-66.0) % Eos # (Auto) (0-0.5) Absolute Lymphs (auto) (1.0-4.6) Absolute Monos (auto) (0.0-1.3) Lymphocytes % (24.0-44.0) % Monocytes % (0.0-12.0) % Eosinophils % (0.00-5.0) % Basophils % (0.0-0.4) % Absolute Granulocytes (1.4-6.9) Basophils # (0-0.4) Sodium (137-145) mmol/L Potassium (3.5-5.1) mmol/L Chloride (98-107) mmol/L Carbon Dioxide (22-30) mmol/L Anion Gap (5-15) MEQ/L BUN (9-20) mg/dL Creatinine (0.66-1.25) mg/dL Estimated GFR ML/MIN Glucose (74-106) mg/dL Calcium (8.4-10.2) mg/dL Total Bilirubin (0.2-1.3) mg/dL AST (17-59) U/L ALT (0-50) U/L Alkaline Phosphatase (38-126) U/L Troponin I < 0.012 < 0.012 < 0.012 (0.000-0.034) ng/mL Serum Total Protein (6.3-8.2) g/dL Albumin (3.5-5.0) g/dL Lipase (23-300) U/L Urine Color (YELLOW) Urine Appearance (CLEAR) Urine pH (5-6) Ur Specific [place] (1.005-1.025) Urine Protein (Negative) Urine Ketones (NEGATIVE) Urine Blood (0-5) Jass/ul Urine Nitrite (NEGATIVE) Urine Bilirubin (NEGATIVE) Urine Urobilinogen (0-1) mg/dL Ur Leukocyte Esterase (NEGATIVE) Urine WBC (Auto) (0-5) /HPF Urine RBC (Auto) (0-2) /HPF U Epithel Cells (Auto) (FEW) /HPF Urine Bacteria (Auto) (NEGATIVE) /HPF Urine Mucus (Auto) (NEGATIVE) /HPF Urine Culture Reflexed (NO) Urine Glucose (NEGATIVE) mg/dL Urine Opiates Level (NEGATIVE) Ur Methadone (NEGATIVE) Urine Barbiturates (NEGATIVE) Ur Phencyclidine (PCP) (NEGATIVE) Urine Amphetamine (NEGATIVE) U Benzodiazepine Level (NEGATIVE) Urine Cocaine (NEGATIVE) Urine Marijuana (THC) (NEGATIVE) Slides for Path Review 05/09/20 05/09/20 Range/Units 04:44 04:44 WBC 14.8 H (4.0-10.5) K/mm3 RBC 4.96 (4.1-5.6) M/mm3 Hgb 16.5 (12.5-18.0) gm/dl Hct 50.2 H (42-50) % MCV 101.2 H (78-100) fl MCH 33.3 H (26-32) pg MCHC 32.9 (32-36) g/dl RDW 14.9 H (11.5-14.0) % Plt Count 162 (150-450) K/mm3 MPV 10.5 (7.5-11.0) fl Gran % 79.8 H (36.0-66.0) % Eos # (Auto) 0.04 (0-0.5) Absolute Lymphs (auto) 1.23 (1.0-4.6) Absolute Monos (auto) 1.71 H (0.0-1.3) Lymphocytes % 8.3 L (24.0-44.0) % Monocytes % 11.5 (0.0-12.0) % Eosinophils % 0.3 (0.00-5.0) % Basophils % 0.1 (0.0-0.4) % Absolute Granulocytes 11.82 H (1.4-6.9) Basophils # 0.01 (0-0.4) Sodium 135 L (137-145) mmol/L Potassium 3.9 (3.5-5.1) mmol/L Chloride 104 (98-107) mmol/L Carbon Dioxide 24 (22-30) mmol/L Anion Gap 11.2 (5-15) MEQ/L BUN 15 (9-20) mg/dL Creatinine 0.87 (0.66-1.25) mg/dL Estimated GFR > 60.0 ML/MIN Glucose 101 (74-106) mg/dL Calcium 8.3 L (8.4-10.2) mg/dL Total Bilirubin 1.80 H (0.2-1.3) mg/dL AST 21 (17-59) U/L ALT 19 (0-50) U/L Alkaline Phosphatase 56 (38-126) U/L Troponin I (0.000-0.034) ng/mL Serum Total Protein 6.6 (6.3-8.2) g/dL Albumin 3.7 (3.5-5.0) g/dL Lipase (23-300) U/L Urine Color (YELLOW) Urine Appearance (CLEAR) Urine pH (5-6) Ur Specific [place] (1.005-1.025) Urine Protein (Negative) Urine Ketones (NEGATIVE) Urine Blood (0-5) Jass/ul Urine Nitrite (NEGATIVE) Urine Bilirubin (NEGATIVE) Urine Urobilinogen (0-1) mg/dL Ur Leukocyte Esterase (NEGATIVE) Urine WBC (Auto) (0-5) /HPF Urine RBC (Auto) (0-2) /HPF U Epithel Cells (Auto) (FEW) /HPF Urine Bacteria (Auto) (NEGATIVE) /HPF Urine Mucus (Auto) (NEGATIVE) /HPF Urine Culture Reflexed (NO) Urine Glucose (NEGATIVE) mg/dL Urine Opiates Level (NEGATIVE) Ur Methadone (NEGATIVE) Urine Barbiturates (NEGATIVE) Ur Phencyclidine (PCP) (NEGATIVE) Urine Amphetamine (NEGATIVE) U Benzodiazepine Level (NEGATIVE) Urine Cocaine (NEGATIVE) Urine Marijuana (THC) (NEGATIVE) Slides for Path Review YES Accuchecks Accucheck Value: 99 Accucheck Value: 98 Accucheck Value: 105 - Radiology Impressions Radiology Exams & Impressions: Radiology Procedures Category Date Time Status CTA ABD/PEL W AND/OR W/O CONTR [CT] Stat Exams 05/08/20 11:45 Completed CTA CHEST W AND/OR WO [CT] Stat Exams 05/08/20 10:28 Completed GALLBLADDER [US] Routine Exams 05/09/20 Ordered - Other Procedures and Tests Respiratory Therapy 05/08/20 16:39 Respiratory Therapy Assessment DAILY Assessment/Plan (1) Acute pancreatitis Current Visit: Yes Status: Acute Assessment & Plan: NPO, pain control and fluids/anti-emetics ordered. check gb u/s, no stones on ct but want to make sure with ultrasound, suspect alcohol use as culprit. cou nseled on alcohol and pancreatitis Code(s): K85.90 - ACUTE PANCREATITIS WITHOUT NECROSIS OR INFECTION, UNSP (2) COPD (chronic obstructive pulmonary disease) Current Visit: Yes Status: Acute Assessment & Plan: stable currently
[2020-05-09] MEDS ORDERED: PROTONIX 40 MG IV IV SCH (10:00)
--- NOTE | 2020-05-09 10:52 | XRAY ---
Indication: Acute pancreatitis. Two-dimensional gallbladder sonogram performed. Comparison: None Pancreas not well evaluated due to overlying bowel gas. Gallbladder normally distended without gallstones, wall thickening, or pericholecystic fluid. Common bile duct measures 4.9 mm. No intrahepatic biliary distention. Visualized portions of the liver are homogeneous in echogenicity without hepatomegaly or ascites. Visualized right kidney sonographically normal measuring 10.9 cm in length. Impression: Pancreas not well visualized. Remaining gallbladder sonogram is negative.
[2020-05-09] MEDS: DILAUDID 2 MG INJECTION IV PRN ×2 (18:05→22:25)
[2020-05-09] MEDS ORDERED: ZOLPIDEM TARTRATE 10 MG PO SCH (22:00)
[2020-05-09] MEDS: Ambien 10 MG PO SCH (22:26)
[2020-05-10] MEDS: DUONEB 0.5-3 MG/3 ml Neb IH PRN ×2 (03:18→07:08)
[2020-05-10] MEDS: DILAUDID 2 MG INJECTION IV PRN ×5 (04:05→21:28)
[2020-05-10 05:11] LABS: Absolute Neutrophil Ct (ANC) 10.13 (1.4-6.9); BASOPHIL % 0.1 % (0.0-0.4); Basophil (Absolute #) 0.01 (0-0.4); Eosinophil (Absolute #) 0.12 (0-0.5); Hematocrit 42.2 % (42-50); Hemoglobin 14.1 gm/dl (12.5-18.0); Lymphocyte (Absolute #) 0.99 (1.0-4.6); Lymphocytes % 7.9 % (24.0-44.0); Mean Cell Volume 100.5 fl (78-100); Mean Corpuscular Hemoglobin 33.6 pg (26-32); Mean Corpuscular Hgb Concent. 33.4 g/dl (32-36); Mean Platelet Volume 10.3 fl (7.5-11.0); Monocyte (Absolute #) 1.28 (0.0-1.3); Monocytes % 10.2 % (0.0-12.0); Neutrophil % 80.8 % (36.0-66.0); Platelet Count 136 K/mm3 (150-450); Red Cell Distribution Width 14.5 % (11.5-14.0); White Blood Count 12.5 K/mm3 (4.0-10.5)
[2020-05-10 05:25] LABS: ALBUMIN 3.3 g/dL (3.5-5.0); ALKALINE PHOSPHATASE 53 U/L (38-126); AMYLASE 149 U/L (30-110); ANION GAP 9.7 MEQ/L (5-15); BLOOD UREA NITROGEN 14 mg/dL (9-20); CHLORIDE 104 mmol/L (98-107); Calcium 8.3 mg/dL (8.4-10.2); Carbon Dioxide 23 mmol/L (22-30); Creatinine 1 0.87 mg/dL (0.66-1.25); Glucose 106 mg/dL (74-106); LIPASE 387 U/L (23-300); Potassium 3.4 mmol/L (3.5-5.1); SGOT/AST 20 U/L (17-59); SGPT/ALT 16 U/L (0-50); SODIUM 134 mmol/L (137-145); Total Protein 6.4 g/dL (6.3-8.2)
--- NOTE | 2020-05-10 08:07 | PCM.NOTE ---
Date and Time: 05/10/20 0804 Subjective Assessment: patient reports he is feeling some better, still sore in the upper abdomen and has some nausea. Objective Exam General Appearance: no apparent distress, alert Skin Exam: normal color, warm, dry Respiratory Exam: normal breath sounds, lungs clear, No respiratory distress Cardiovascular Exam: regular rate/rhythm, normal heart sounds Gastrointestinal/Abdomen Exam: soft, tenderness (epigstrium), No mass OBJECTIVE DATA Vital Signs: Vital Signs - 24 hr Temp Pulse Resp BP Pulse Ox 05/10/20 07:44 98.4 F 82 20 170/96 95 05/10/20 07:10 82 20 95 05/10/20 04:00 36 H 05/10/20 03:48 99.0 F 92 H 36 H 154/80 93 L 05/10/20 03:24 95 H 22 94 L 05/10/20 00:00 26 H 05/09/20 23:33 98.3 F 88 26 H 139/70 92 L 05/09/20 20:00 99.2 F 103 H 20 130/88 98 05/09/20 19:25 91 H 20 93 L 05/09/20 16:00 97.5 F 93 H 18 140/72 98 05/09/20 14:27 93 H 20 93 L 05/09/20 12:00 98.6 F 96 H 20 129/94 94 L 05/09/20 10:41 93 H 20 92 L Pain Assessment - Last Documented Pain Intensity 9 Pain Scale Used 0-10 Pain Scale Intake and Output: Intake & Output 05/07/20 05/08/20 05/09/20 05/10/20 11:59 11:59 11:59 11:59 Intake Total 1153 2064 Output Total 400 900 Balance 753 1164 Weight 86.183 kg 86.183 kg Lab Results: Accuchecks Accucheck Value: 106 Accucheck Value: 94 Accucheck Value: 100 Lab Results-Last 24 Hours 05/10/20 05/10/20 Range/Units 04:40 04:40 WBC 12.5 H (4.0-10.5) K/mm3 RBC 4.20 (4.1-5.6) M/mm3 Hgb 14.1 (12.5-18.0) gm/dl Hct 42.2 (42-50) % MCV 100.5 H (78-100) fl MCH 33.6 H (26-32) pg MCHC 33.4 (32-36) g/dl RDW 14.5 H (11.5-14.0) % Plt Count 136 L (150-450) K/mm3 MPV 10.3 (7.5-11.0) fl Gran % 80.8 H (36.0-66.0) % Eos # (Auto) 0.12 (0-0.5) Absolute Lymphs (auto) 0.99 L (1.0-4.6) Absolute Monos (auto) 1.28 (0.0-1.3) Lymphocytes % 7.9 L (24.0-44.0) % Monocytes % 10.2 (0.0-12.0) % Eosinophils % 1.0 (0.00-5.0) % Basophils % 0.1 (0.0-0.4) % Absolute Granulocytes 10.13 H (1.4-6.9) Basophils # 0.01 (0-0.4) Sodium 134 L (137-145) mmol/L Potassium 3.4 L (3.5-5.1) mmol/L Chloride 104 (98-107) mmol/L Carbon Dioxide 23 (22-30) mmol/L Anion Gap 9.7 (5-15) MEQ/L BUN 14 (9-20) mg/dL Creatinine 0.87 (0.66-1.25) mg/dL Estimated GFR > 60.0 ML/MIN Glucose 106 (74-106) mg/dL Calcium 8.3 L (8.4-10.2) mg/dL Total Bilirubin 1.70 H (0.2-1.3) mg/dL AST 20 (17-59) U/L ALT 16 (0-50) U/L Alkaline Phosphatase 53 (38-126) U/L Serum Total Protein 6.4 (6.3-8.2) g/dL Albumin 3.3 L (3.5-5.0) g/dL Amylase 149 H (30-110) U/L Lipase 387 H (23-300) U/L Radiology Exams: Radiology Procedures Category Date Time Status CTA ABD/PEL W AND/OR W/O CONTR [CT] Stat Exams 05/08/20 11:45 Completed CTA CHEST W AND/OR WO [CT] Stat Exams 05/08/20 10:28 Completed GALLBLADDER [US] Routine Exams 05/09/20 10:24 Completed Assessment/Plan (1) Acute pancreatitis Current Visit: Yes Status: Acute Assessment & Plan: improving enzymes, will start clears today and repeat enzymes tomorrow Code(s): K85.90 - ACUTE PANCREATITIS WITHOUT NECROSIS OR INFECTION, UNSP (2) COPD (chronic obstructive pulmonary disease) Current Visit: Yes Status: Acute
[2020-05-10] MEDS: Sodium Chloride 0.9% 1000 ML 1,000 ML IV SCH ×2 (09:12→19:50)
[2020-05-10] MEDS ORDERED: OMEPRAZOLE 10 MG PO SCH (10:00)
[2020-05-10] MEDS ORDERED: Protonix 20MG Tablet PO SCH (10:00)
[2020-05-10] MEDS: DUONEB 0.5-3 MG/3 ml Neb IH SCH ×3 (10:46→20:03)
[2020-05-10] MEDS: Zofran 4 MG/2 ML VIAL IV PRN ×3 (12:23→21:32)
[2020-05-10] MEDS: Ambien 10 MG PO SCH (21:28)
[2020-05-11] MEDS: DUONEB 0.5-3 MG/3 ml Neb IH PRN ×2 (00:30→04:00)
[2020-05-11] MEDS: DILAUDID 2 MG INJECTION IV PRN ×3 (02:30→10:27)
[2020-05-11] MEDS: Zofran 4 MG/2 ML VIAL IV PRN ×3 (02:35→10:27)
[2020-05-11 05:26] LABS: Absolute Neutrophil Ct (ANC) 7.77 (1.4-6.9); BASOPHIL % 0.2 % (0.0-0.4); Basophil (Absolute #) 0.02 (0-0.4); Eosinophil % 2.2 % (0.00-5.0); Eosinophil (Absolute #) 0.22 (0-0.5); Hematocrit 42.3 % (42-50); Hemoglobin 13.5 gm/dl (12.5-18.0); Lymphocyte (Absolute #) 1.12 (1.0-4.6); Mean Cell Volume 102.4 fl (78-100); Mean Corpuscular Hemoglobin 32.7 pg (26-32); Mean Corpuscular Hgb Concent. 31.9 g/dl (32-36); Mean Platelet Volume 10.5 fl (7.5-11.0); Monocyte (Absolute #) 1.02 (0.0-1.3); Neutrophil % 76.6 % (36.0-66.0); Platelet Count 146 K/mm3 (150-450); Red Blood Count 4.13 M/mm3 (4.1-5.6); Red Cell Distribution Width 14.2 % (11.5-14.0); White Blood Count 10.2 K/mm3 (4.0-10.5)
[2020-05-11 05:37] LABS: ALBUMIN 3.3 g/dL (3.5-5.0); ALKALINE PHOSPHATASE 56 U/L (38-126); AMYLASE 76 U/L (30-110); ANION GAP 9.7 MEQ/L (5-15); BLOOD UREA NITROGEN 11 mg/dL (9-20); CHLORIDE 104 mmol/L (98-107); Calcium 8.1 mg/dL (8.4-10.2); Carbon Dioxide 25 mmol/L (22-30); Creatinine 1 0.89 mg/dL (0.66-1.25); Glucose 100 mg/dL (74-106); LIPASE 174 U/L (23-300); Potassium 3.5 mmol/L (3.5-5.1); SGOT/AST 21 U/L (17-59); SGPT/ALT 14 U/L (0-50); SODIUM 135 mmol/L (137-145); Total Protein 6.5 g/dL (6.3-8.2)
[2020-05-11] MEDS: Sodium Chloride 0.9% 1000 ML 1,000 ML IV SCH (05:40)
[2020-05-11] MEDS: DUONEB 0.5-3 MG/3 ml Neb IH SCH ×2 (07:02→10:30)
--- NOTE | 2020-05-11 08:12 | PCM.DS ---
Discharge Summary Date of Admission: 05/08/20 14:12 Admitting Physician: LATOSHA PARMAR Primary Care Provider: BRENDA MARC Allergies Allergies penicillin G Allergy (Unknown, Verified 12/12/19 14:45) Hospital Summary - Hospital Course Hospital Course: patient presented with epigastric pain and nausea/vomiting, found to have acute pancreatitis. gallbladder u/s was normal, patient admits to at least moderate alcohol consumption and heavier than usual prior to arrival - Vitals & Intake/Output Vital Signs: Vital Signs Temperature 98.8 F 05/11/20 04:00 Pulse Rate 91 H 05/11/20 07:02 Respiratory Rate 16 05/11/20 07:02 Blood Pressure 146/81 05/11/20 04:00 O2 Sat by Pulse Oximetry 90 L 05/11/20 07:02 Intake & Output: Intake & Output 05/08/20 05/09/20 05/10/20 05/11/20 11:59 11:59 11:59 11:59 Intake Total 1153 2304 2797 Output Total 400 900 Balance 753 1404 2797 Weight 86.183 kg 86.183 kg - Lab Result Diagrams: 05/11/20 04:37 05/11/20 04:37 Lab Results-Last 24 Hrs: Accuchecks Accucheck Value: 104 Accucheck Value: 114 Accucheck Value: 85 Lab Results-Last 24 Hours 05/11/20 05/11/20 Range/Units 04:37 04:37 WBC 10.2 (4.0-10.5) K/mm3 RBC 4.13 (4.1-5.6) M/mm3 Hgb 13.5 (12.5-18.0) gm/dl Hct 42.3 (42-50) % MCV 102.4 H (78-100) fl MCH 32.7 H (26-32) pg MCHC 31.9 L (32-36) g/dl RDW 14.2 H (11.5-14.0) % Plt Count 146 L (150-450) K/mm3 MPV 10.5 (7.5-11.0) fl Gran % 76.6 H (36.0-66.0) % Eos # (Auto) 0.22 (0-0.5) Absolute Lymphs (auto) 1.12 (1.0-4.6) Absolute Monos (auto) 1.02 (0.0-1.3) Lymphocytes % 11.0 L (24.0-44.0) % Monocytes % 10.0 (0.0-12.0) % Eosinophils % 2.2 (0.00-5.0) % Basophils % 0.2 (0.0-0.4) % Absolute Granulocytes 7.77 H (1.4-6.9) Basophils # 0.02 (0-0.4) Sodium 135 L (137-145) mmol/L Potassium 3.5 (3.5-5.1) mmol/L Chloride 104 (98-107) mmol/L Carbon Dioxide 25 (22-30) mmol/L Anion Gap 9.7 (5-15) MEQ/L BUN 11 (9-20) mg/dL Creatinine 0.89 (0.66-1.25) mg/dL Estimated GFR > 60.0 ML/MIN Glucose 100 (74-106) mg/dL Calcium 8.1 L (8.4-10.2) mg/dL Total Bilirubin 1.70 H (0.2-1.3) mg/dL AST 21 (17-59) U/L ALT 14 (0-50) U/L Alkaline Phosphatase 56 (38-126) U/L Serum Total Protein 6.5 (6.3-8.2) g/dL Albumin 3.3 L (3.5-5.0) g/dL Amylase 76 (30-110) U/L Lipase 174 (23-300) U/L Micro Results-Entire Visit: Accuchecks Accucheck Value: 104 Accucheck Value: 114 Accucheck Value: 85 - Radiology Exams Ordered Rad Exams-Entire Visit: Radiology Procedures Category Date Time Status GALLBLADDER [US] Routine Exams 05/09/20 10:24 Completed - Procedures and Test Procedures and Tests throughout Hospitalization: Therapy Orders & Screens 05/08/20 16:12 RT Screen per Nursing Assess ONCE Comment: Protocol Order Physician Instructions: Greater than 3 points order RT Admission Screen Reason For Exam: Triggered on Admission Diagnosis: pancreatitis Diagnosis: pancreatitis Pneumonia: No Home O2: No Asthma: Yes CHF: No Home CPAP/BIPAP: No Home Nebs/MDI: Yes Total Points: 9 Smoking Cessation Education ONCE Comment: Diagnosis: pancreatitis Smoking Status: Current every day smoker How long have you smoked: 40 years Have you smoked in the past 12 months: Yes Approximately how many cigarettes per day: 1 pack per day Do you dip or chew tobacco: Yes 05/08/20 16:39 Respiratory Therapy Assessment DAILY Comment: Diagnosis: pancreatitis 05/11/20 00:31 Oxygen Nasal Cannula 2 lpm Comment: Diagnosis: pancreatitis Discharge Exam General Appearance: no apparent distress, alert Respiratory Exam: normal breath sounds, lungs clear, No respiratory distress Cardiovascular Exam: regular rate/rhythm, normal heart sounds Gastrointestinal/Abdomen Exam: soft, No tenderness, No mass Extremity Exam: normal inspection, normal range of motion Skin Exam: normal color, warm, dry Final Diagnosis/Problem List - Final Discharge Diagnosis/Problem (1) Acute pancreatitis Current Visit: Yes Status: Acute Assessment & Plan: resolved, counseled on bland/low fat diet and alcohol avoidance Code(s): K85.90 - ACUTE PANCREATITIS WITHOUT NECROSIS OR INFECTION, UNSP (2) COPD (chronic obstructive pulmonary disease) Current Visit: Yes Status: Acute Assessment & Plan: patient notes supereior results with duonebs during stay over home hfa, will send home with nebulizer and duoneb rx - Discharge Disposition: Home, Self-Care Condition: Stable Prescriptions: New Nebulizer/Compressor [Comp-Air Nebulizer System] 1 each UD #1 each Albuterol/Ipratropium 3ml Neb* [DUONEB 0.5-3 MG/3 ml Neb] 3 ml IH QIDRT #100 ampul.neb Hydrocodone/APAP 5-325 Tab^^^ [[place] 5-325 Tablet^^^] 1 tab PO Q6HPRN PRN #20 tablet MDD 6 PRN Reason: Pain Continue Omeprazole 10 mg PO DAILY Zolpidem Tartrate [Ambien Cr] 10 mg PO HS Naproxen 500 mg [Naprosyn 500 MG] 500 mg PO BID Discontinued Albuterol 2.5 mg/3 ml Neb [Proventil 2.5 mg/3 ml Neb] 2.5 mg IH BID Follow up with: BRENDA MARC MD [Primary Care Provider] - 1 Week
[2020-05-11 09:07] VITALS: BP 126/89
[2020-05-11 10:41] VITALS: PULSE 77; O2SAT 93
== END 2020-05-11 10:50 | disposition home or self-care (01) ==
LOC: ED 09:47 → MED SURG 14:12
PROVIDERS: ADMIT Family Medicine; ATTEND Family Medicine
DX: K85.90 Acute pancreatitis without necrosis or infection, unspecified (principal); R11.2 Nausea with vomiting, unspecified; J44.9 Chronic obstructive pulmonary disease, unspecified; K21.9 Gastro-esophageal reflux disease without esophagitis; Z79.899 Other long term (current) drug therapy; F17.200 Nicotine dependence, unspecified, uncomplicated
CPT/HCPCS: 36415; 71275; 74174; 76705; 80053; 80307; 81001; 82150; 82962; 83690; 84484; 85025; 93005; 94640; 94760; 96374; 96375; 96376; 99285; G0378; J1170; J2270; J2405; A9270-GY

== ENCOUNTER 2020-05-13 18:19 | Observation (INO) | payer MEDICARE ==
--- NOTE | 2020-05-13 19:39 | ERPHSYRPT ---
- History of Present Illness Historian: patient Exam Limitations: no limitations Patient Subjective Stated Complaint: abd pain and fever Triage Nursing Assessment: pt to ED c/o fever onset yesterday and abd pain 910 unknown onset, just DC from [facility] 2 days ago, dx with pancreatitis. reports has not felt good since hospitalization. had little to no appetite. nauseous after eating cereal today. Hx Tetanus, Diphtheria Vaccination/Date Given: No Hx Influenza Vaccination/Date Given: No Hx Pneumococcal Vaccination/Date Given: No Immunizations Up to Date: No - History of Present Illness Time Seen by Provider: 05/13/20 19:20 Physician History: Pt states he was hospitalized for 3 days at [facility] for pancreatitis and discharged 2 days ago. Pt states he has had constant achy/sharp upper & lower abdominal pain for the past 8 days with radiation to the mid back. Pt states he vomited 5 times without blood 5 days ago and has been nauseous for the past 8 days. Pt denies chest pain, headache, sore throat; admits to fever today of 100.7 degrees and his usual shortness of air from COPD. Last BM was 8 days ago. (JOSE CRALWEY) Allergies/Adverse Reactions: penicillin G Allergy (Unknown, Verified 12/12/19 14:45) Home Medications: Omeprazole 10 mg PO DAILY 12/12/19 [History] Naproxen 500 mg [Naprosyn 500 MG] 500 mg PO BID 05/08/20 [History] Zolpidem Tartrate [Ambien Cr] 10 mg PO HS 05/08/20 [History] Travel Risk - International Travel Have you traveled outside of the country in past 3 weeks: No - Coronavirus Screening Are you exhibiting any of the following symptoms?: Yes Symptoms: Fever, Shortness of Breath (COPD) Close contact with a COVID-19 positive Pt in past 14-21 Days: No - Review of Systems Constitutional: Fever Ears, Nose, & Throat: No Throat Pain Respiratory: Dyspnea Cardiac: No Chest Pain Abdominal/Gastrointestinal: Abdominal Pain, Nausea, Vomiting, No Diarrhea Musculoskeletal: Back Pain Neurological: No Headache All Other Systems: Reviewed and Negative - Past Medical History Pertinent Past Medical History: Yes Neurological History: No Pertinent History ENT History: No Pertinent History Cardiac History: No Pertinent History Respiratory History: Bronchitis, COPD, Emphysema, Other Musculoskeletal History: Arthritis GI Medical History: Diverticulitis, GERD, Pancreatitis History: No Pertinent History Psycho-Social History: No Pertinent History Male Reproductive Disorders: No Pertinent History Other Medical History: rotator cuff surgery scheduled for June 15 - Past Surgical History Past Surgical History: Yes Neuro Surgical History: No Pertinent History Cardiac: No Pertinent History Respiratory: No Pertinent History Gastrointestinal: Hernia Repair Genitourinary: No Pertinent History Musculoskeletal: No Pertinent History Male Surgical History: No Pertinent History - Social History Smoking Status: Current some day smoker How long have you smoked: 40 years Exposure to second hand smoke: Yes Alcohol Use: Chronic Drug Use: marijuana Patient Lives Alone: No Significant Family History: no pertinent family hx - Physical Exam General Appearance: alert Eye Exam: PERRL/EOMI Ears, Nose, Throat Exam: TMs normal, pharynx normal Neck Exam: normal inspection Respiratory Exam: normal breath sounds Cardiovascular Exam: normal heart sounds Gastrointestinal/Abdomen Exam: normal bowel sounds, tenderness (mild diffuse abdominal tenderness.) Back Exam: other (fair rom) Extremity Exam: No pedal edema Neurologic Exam: alert, cooperative Skin Exam: warm, dry SpO2 Interpretation: normal SpO2: 96 O2 Delivery: Room Air - Nursing Vital Signs Nursing Vital Signs: Initial Vital Signs Temperature 99.4 F 05/13/20 18:35 Pulse Rate 89 05/13/20 18:35 Respiratory Rate 18 05/13/20 18:35 Blood Pressure 174/90 05/13/20 18:35 O2 Sat by Pulse Oximetry 96 05/13/20 18:35 Pain Scale Pain Intensity 6 - Course Nursing assessment & vital signs reviewed: Yes EKG Interpreted by Me: RATE (75), Sinus Rhythm, NORMAL AXIS - CT Exams Abdomen/Pelvis CT Interpretation: Tele-radiologist Report (CT findings suggestive of recurrence of acute uncomplicated pancreatitis.) Chest CT Interpretation: Tele-radiologist Report (CTA: no evidence of PE. No evidence of acute pulmonary pathology.) Ordered Tests: Active Orders 24 hr Category Date Time Status EKG-ER Only STAT Care 05/13/20 19:44 Active IV Insertion STAT Care 05/13/20 19:44 Active ABDOMEN AND PELVIS W CONTRAST [CT] Stat Exams 05/13/20 19:46 Taken CHEST WITH CONTRAST [CT] Stat Exams 05/13/20 21:06 Taken AMYLASE Stat Lab 05/13/20 20:25 Completed BLOOD CULTURE Stat Lab 08/23/20 20:25 Received BMP Stat Lab 05/14/20 01:59 Completed CBC W DIFF Stat Lab 05/13/20 20:25 Completed CMP Stat Lab 05/13/20 20:25 Completed D-DIMER QUANTITATIVE Stat Lab 05/13/20 20:25 Completed Erythrocyte Sedimentation Rate Stat Lab 05/13/20 20:25 Completed LIPASE Stat Lab 05/13/20 20:25 Completed Lactic Acid Stat Lab 05/13/20 20:05 Completed MAGNESIUM Stat Lab 05/13/20 20:25 Completed Manual Differential NC Stat Lab 05/13/20 20:25 Completed [place] Screen Stat Lab 05/13/20 20:25 Completed NT PRO BNP Stat Lab 05/13/20 20:25 Completed PROTIME WITH INR Stat Lab 05/13/20 20:25 Completed PTT Stat Lab 05/13/20 20:25 Completed TROPONIN Q3H Lab 05/13/20 20:25 Completed TROPONIN Q3H Lab 05/13/20 23:16 Completed TROPONIN Q3H Lab 05/14/20 01:59 Completed TROPONIN Q3H Lab 05/14/20 04:45 Ordered TROPONIN Q3H Lab 05/14/20 07:45 Ordered UA W/RFX UR CULTURE Stat Lab 05/13/20 21:00 Completed VENOUS BLOOD GAS Stat Lab 05/13/20 20:05 Completed Medication Summary Generic Name Dose Route Start Last Admin Trade Name Freq PRN Reason Stop Dose Admin Sodium Chloride 1,000 mls @ 100 mls/hr 05/13/20 19:45 05/13/20 20:38 Sodium Chloride 0.9% 1000 Ml IV 06/12/20 19:44 100 mls/hr .Q10H GALO Administration Potassium Chloride 20 meq in 100 mls @ 50 mls/hr 05/14/20 02:38 Potassium Chloride 20 Meq In Water 100ml IV 05/14/20 04:37 STAT ONE Discontinued Medications Generic Name Dose Route Start Last Admin Trade Name Freq PRN Reason Stop Dose Admin Fentanyl Citrate 50 mcg 05/13/20 19:44 05/13/20 20:39 Sublimaze 100 Mcg/2 Ml IV 05/13/20 19:45 50 mcg STAT ONE Administration Fentanyl Citrate Confirm 05/13/20 20:33 Sublimaze 100 Mcg/2 Ml Administered 05/13/20 20:34 Dose 100 mcg .ROUTE .STK-MED ONE Fentanyl Citrate 50 mcg 05/14/20 01:32 05/14/20 01:38 Sublimaze 100 Mcg/2 Ml IV 05/14/20 01:33 50 mcg STAT ONE Administration Fentanyl Citrate Confirm 05/14/20 01:36 Sublimaze 100 Mcg/2 Ml Administered 05/14/20 01:37 Dose 100 mcg .ROUTE .STK-MED ONE Potassium Chloride 20 meq in 100 mls @ 50 mls/hr 05/13/20 20:57 05/13/20 21:59 Potassium Chloride 20 Meq In Water 100ml IV 05/13/20 22:56 50 mls/hr STAT ONE Administration Potassium Chloride Confirm 05/13/20 21:58 Potassium Chloride 20 Meq In Water 100ml Administered 05/13/20 21:59 Dose 100 mls @ ud IV .STK-MED ONE Ondansetron HCl 4 mg 05/13/20 19:44 05/13/20 20:40 Zofran 4 Mg/2 Ml Vial IV 05/13/20 19:45 4 mg STAT ONE Administration Ondansetron HCl Confirm 05/13/20 20:33 Zofran 4 Mg/2 Ml Vial Administered 05/13/20 20:34 Dose 4 mg .ROUTE .STK-MED ONE Promethazine HCl 50 mg 05/14/20 01:45 05/14/20 01:50 Phenergan 25 Mg Inj IM 05/14/20 01:46 50 mg STAT ONE Administration Promethazine HCl Confirm 05/14/20 01:48 Phenergan 25 Mg Inj Administered 05/14/20 01:49 Dose 25 mg .ROUTE .STK-MED ONE Lab/Rad Data: Laboratory Result Diagrams 05/13/20 20:25 05/14/20 01:59 Laboratory Results 05/14/20 05/14/20 05/14/20 Range/Units 01:59 01:59 00:00 WBC (4.0-10.5) K/mm3 RBC (4.1-5.6) M/mm3 Hgb (12.5-18.0) gm/dl Hct (42-50) % MCV (78-100) fl MCH (26-32) pg MCHC (32-36) g/dl RDW (11.5-14.0) % Plt Count (150-450) K/mm3 MPV (7.5-11.0) fl Segmented Neutrophils (36.-66.) % Lymphocytes (Manual) (24-44) % Monocytes (Manual) (0.0-12.0) % Eosinophils (Manual) (0.00-3.0) % Atypical Lymphocytes % Platelet Estimate (NORMAL) RBC Morphology ESR (0-15) mm/hr PT (8.83-12.87) SECONDS INR (0.8-3.0) APTT (24.1-36.1) SECONDS D-Dimer (215-500) ng/mL pO2/FiO2 Ratio % VBG pH (7.32-7.42) VBG pCO2 at Pat Temp (42-55) mm/Hg VBG pO2 at Pat Temp (25-40) mm/Hg VBG HCO3 (22-28) meq/L VBG O2 Sat (Boo) (95-100) VBG Base Excess (-2.0-2.0) VBG Hemoglobin VBG Carboxyhemoglobin (0.0-6.9) % T HGB POC Potassium (3.5-5.1) Sodium 135 L (137-145) mmol/L Potassium 3.2 L (3.5-5.1) mmol/L Chloride 101 (98-107) mmol/L Carbon Dioxide 26 (22-30) mmol/L Anion Gap 10.8 (5-15) MEQ/L BUN 13 (9-20) mg/dL Creatinine 0.74 (0.66-1.25) mg/dL Estimated GFR > 60.0 ML/MIN Glucose 109 H (74-106) mg/dL Lactic Acid (0.4-2.0) Calcium 8.8 (8.4-10.2) mg/dL Magnesium (1.6-2.3) mg/dL Total Bilirubin (0.2-1.3) mg/dL AST (17-59) U/L ALT (0-50) U/L Alkaline Phosphatase (38-126) U/L Troponin I < 0.012 (0.000-0.034) ng/mL NT-Pro-B Natriuret Pep (0-900) pg/mL Serum Total Protein (6.3-8.2) g/dL Albumin (3.5-5.0) g/dL Amylase (30-110) U/L Lipase (23-300) U/L Urine Color (YELLOW) Urine Appearance (CLEAR) Urine pH (5-6) Ur Specific [place] (1.005-1.025) Urine Protein (Negative) Urine Ketones (NEGATIVE) Urine Blood (0-5) Jass/ul Urine Nitrite (NEGATIVE) Urine Bilirubin (NEGATIVE) Urine Urobilinogen (0-1) mg/dL Ur Leukocyte Esterase (NEGATIVE) Urine WBC (Auto) (0-5) /HPF Urine RBC (Auto) (0-2) /HPF U Epithel Cells (Auto) (FEW) /HPF Urine Bacteria (Auto) (NEGATIVE) /HPF Amorphous Crystals (NEGATIVE) /HPF Urine Mucus (Auto) (NEGATIVE) /HPF Urine Culture Reflexed (NO) Urine Glucose (NEGATIVE) mg/dL Monoscreen (Negative) Influenza Type A Ag (NEGATIVE) Influenza Type B Ag (NEGATIVE) RSV (PCR) (Negative) SARS-CoV-2 (PCR) NEGATIVE (NEGATIVE) Group A Strep Antibody (NEGATIVE) 05/13/20 05/13/20 05/13/20 Range/Units 23:16 21:00 20:25 WBC (4.0-10.5) K/mm3 RBC (4.1-5.6) M/mm3 Hgb (12.5-18.0) gm/dl Hct (42-50) % MCV (78-100) fl MCH (26-32) pg MCHC (32-36) g/dl RDW (11.5-14.0) % Plt Count (150-450) K/mm3 MPV (7.5-11.0) fl Segmented Neutrophils (36.-66.) % Lymphocytes (Manual) (24-44) % Monocytes (Manual) (0.0-12.0) % Eosinophils (Manual) (0.00-3.0) % Atypical Lymphocytes % Platelet Estimate (NORMAL) RBC Morphology ESR (0-15) mm/hr PT (8.83-12.87) SECONDS INR (0.8-3.0) APTT (24.1-36.1) SECONDS D-Dimer (215-500) ng/mL pO2/FiO2 Ratio % VBG pH (7.32-7.42) VBG pCO2 at Pat Temp (42-55) mm/Hg VBG pO2 at Pat Temp (25-40) mm/Hg VBG HCO3 (22-28) meq/L VBG O2 Sat (Boo) (95-100) VBG Base Excess (-2.0-2.0) VBG Hemoglobin VBG Carboxyhemoglobin (0.0-6.9) % T HGB POC Potassium (3.5-5.1) Sodium (137-145) mmol/L Potassium (3.5-5.1) mmol/L Chloride (98-107) mmol/L Carbon Dioxide (22-30) mmol/L Anion Gap (5-15) MEQ/L BUN (9-20) mg/dL Creatinine (0.66-1.25) mg/dL Estimated GFR ML/MIN Glucose (74-106) mg/dL Lactic Acid (0.4-2.0) Calcium (8.4-10.2) mg/dL Magnesium (1.6-2.3) mg/dL Total Bilirubin (0.2-1.3) mg/dL AST (17-59) U/L ALT (0-50) U/L Alkaline Phosphatase (38-126) U/L Troponin I < 0.012 (0.000-0.034) ng/mL NT-Pro-B Natriuret Pep (0-900) pg/mL Serum Total Protein (6.3-8.2) g/dL Albumin (3.5-5.0) g/dL Amylase (30-110) U/L Lipase (23-300) U/L Urine Color YELLOW (YELLOW) Urine Appearance SLIGHTLY CLOUDY (CLEAR) Urine pH 7.0 (5-6) Ur Specific [place] 1.018 (1.005-1.025) Urine Protein 30 (Negative) Urine Ketones SMALL (NEGATIVE) Urine Blood NEGATIVE (0-5) Jass/ul Urine Nitrite NEGATIVE (NEGATIVE) Urine Bilirubin NEGATIVE (NEGATIVE) Urine Urobilinogen 4 (0-1) mg/dL Ur Leukocyte Esterase NEGATIVE (NEGATIVE) Urine WBC (Auto) 3-5 (0-5) /HPF Urine RBC (Auto) 0-2 (0-2) /HPF U Epithel Cells (Auto) NONE (FEW) /HPF Urine Bacteria (Auto) RARE (NEGATIVE) /HPF Amorphous Crystals FEW (NEGATIVE) /HPF Urine Mucus (Auto) SLIGHT (NEGATIVE) /HPF Urine Culture Reflexed NO (NO) Urine Glucose NEGATIVE (NEGATIVE) mg/dL Monoscreen (Negative) Influenza Type A Ag NEGATIVE (NEGATIVE) Influenza Type B Ag NEGATIVE (NEGATIVE) RSV (PCR) NEGATIVE (Negative) SARS-CoV-2 (PCR) (NEGATIVE) Group A Strep Antibody NOT DETECTED (NEGATIVE) 05/13/20 05/13/20 05/13/20 Range/Units 20:25 20:25 20:25 WBC (4.0-10.5) K/mm3 RBC (4.1-5.6) M/mm3 Hgb (12.5-18.0) gm/dl Hct (42-50) % MCV (78-100) fl MCH (26-32) pg MCHC (32-36) g/dl RDW (11.5-14.0) % Plt Count (150-450) K/mm3 MPV (7.5-11.0) fl Segmented Neutrophils (36.-66.) % Lymphocytes (Manual) (24-44) % Monocytes (Manual) (0.0-12.0) % Eosinophils (Manual) (0.00-3.0) % Atypical Lymphocytes % Platelet Estimate (NORMAL) RBC Morphology ESR 43 H (0-15) mm/hr PT 14.7 H (8.83-12.87) SECONDS INR 1.30 (0.8-3.0) APTT 29.6 (24.1-36.1) SECONDS D-Dimer 6006 H* (215-500) ng/mL pO2/FiO2 Ratio % VBG pH (7.32-7.42) VBG pCO2 at Pat Temp (42-55) mm/Hg VBG pO2 at Pat Temp (25-40) mm/Hg VBG HCO3 (22-28) meq/L VBG O2 Sat (Boo) (95-100) VBG Base Excess (-2.0-2.0) VBG Hemoglobin VBG Carboxyhemoglobin (0.0-6.9) % T HGB POC Potassium (3.5-5.1) Sodium (137-145) mmol/L Potassium (3.5-5.1) mmol/L Chloride (98-107) mmol/L Carbon Dioxide (22-30) mmol/L Anion Gap (5-15) MEQ/L BUN (9-20) mg/dL Creatinine (0.66-1.25) mg/dL Estimated GFR ML/MIN Glucose (74-106) mg/dL Lactic Acid (0.4-2.0) Calcium (8.4-10.2) mg/dL Magnesium (1.6-2.3) mg/dL Total Bilirubin (0.2-1.3) mg/dL AST (17-59) U/L ALT (0-50) U/L Alkaline Phosphatase (38-126) U/L Troponin I (0.000-0.034) ng/mL NT-Pro-B Natriuret Pep (0-900) pg/mL Serum Total Protein (6.3-8.2) g/dL Albumin (3.5-5.0) g/dL Amylase (30-110) U/L Lipase (23-300) U/L Urine Color (YELLOW) Urine Appearance (CLEAR) Urine pH (5-6) Ur Specific [place] (1.005-1.025) Urine Protein (Negative) Urine Ketones (NEGATIVE) Urine Blood (0-5) Jass/ul Urine Nitrite (NEGATIVE) Urine Bilirubin (NEGATIVE) Urine Urobilinogen (0-1) mg/dL Ur Leukocyte Esterase (NEGATIVE) Urine WBC (Auto) (0-5) /HPF Urine RBC (Auto) (0-2) /HPF U Epithel Cells (Auto) (FEW) /HPF Urine Bacteria (Auto) (NEGATIVE) /HPF Amorphous Crystals (NEGATIVE) /HPF Urine Mucus (Auto) (NEGATIVE) /HPF Urine Culture Reflexed (NO) Urine Glucose (NEGATIVE) mg/dL Monoscreen NEGATIVE (Negative) Influenza Type A Ag (NEGATIVE) Influenza Type B Ag (NEGATIVE) RSV (PCR) (Negative) SARS-CoV-2 (PCR) (NEGATIVE) Group A Strep Antibody (NEGATIVE) 05/13/20 05/13/20 05/13/20 Range/Units 20:25 20:25 20:25 WBC (4.0-10.5) K/mm3 RBC (4.1-5.6) M/mm3 Hgb (12.5-18.0) gm/dl Hct (42-50) % MCV (78-100) fl MCH (26-32) pg MCHC (32-36) g/dl RDW (11.5-14.0) % Plt Count (150-450) K/mm3 MPV (7.5-11.0) fl Segmented Neutrophils (36.-66.) % Lymphocytes (Manual) (24-44) % Monocytes (Manual) (0.0-12.0) % Eosinophils (Manual) (0.00-3.0) % Atypical Lymphocytes % Platelet Estimate (NORMAL) RBC Morphology ESR (0-15) mm/hr PT (8.83-12.87) SECONDS INR (0.8-3.0) APTT (24.1-36.1) SECONDS D-Dimer (215-500) ng/mL pO2/FiO2 Ratio % VBG pH (7.32-7.42) VBG pCO2 at Pat Temp (42-55) mm/Hg VBG pO2 at Pat Temp (25-40) mm/Hg VBG HCO3 (22-28) meq/L VBG O2 Sat (Boo) (95-100) VBG Base Excess (-2.0-2.0) VBG Hemoglobin VBG Carboxyhemoglobin (0.0-6.9) % T HGB POC Potassium (3.5-5.1) Sodium 135 L (137-145) mmol/L Potassium 3.0 L (3.5-5.1) mmol/L Chloride 99 (98-107) mmol/L Carbon Dioxide 26 (22-30) mmol/L Anion Gap 12.5 (5-15) MEQ/L BUN 14 (9-20) mg/dL Creatinine 0.68 (0.66-1.25) mg/dL Estimated GFR > 60.0 ML/MIN Glucose 107 H (74-106) mg/dL Lactic Acid (0.4-2.0) Calcium 8.9 (8.4-10.2) mg/dL Magnesium 2.3 (1.6-2.3) mg/dL Total Bilirubin 1.10 (0.2-1.3) mg/dL AST 40 (17-59) U/L ALT 40 (0-50) U/L Alkaline Phosphatase 84 (38-126) U/L Troponin I < 0.012 (0.000-0.034) ng/mL NT-Pro-B Natriuret Pep 114 (0-900) pg/mL Serum Total Protein 7.4 (6.3-8.2) g/dL Albumin 3.9 (3.5-5.0) g/dL Amylase 75 (30-110) U/L Lipase 116 (23-300) U/L Urine Color (YELLOW) Urine Appearance (CLEAR) Urine pH (5-6) Ur Specific [place] (1.005-1.025) Urine Protein (Negative) Urine Ketones (NEGATIVE) Urine Blood (0-5) Jass/ul Urine Nitrite (NEGATIVE) Urine Bilirubin (NEGATIVE) Urine Urobilinogen (0-1) mg/dL Ur Leukocyte Esterase (NEGATIVE) Urine WBC (Auto) (0-5) /HPF Urine RBC (Auto) (0-2) /HPF U Epithel Cells (Auto) (FEW) /HPF Urine Bacteria (Auto) (NEGATIVE) /HPF Amorphous Crystals (NEGATIVE) /HPF Urine Mucus (Auto) (NEGATIVE) /HPF Urine Culture Reflexed (NO) Urine Glucose (NEGATIVE) mg/dL Monoscreen (Negative) Influenza Type A Ag (NEGATIVE) Influenza Type B Ag (NEGATIVE) RSV (PCR) (Negative) SARS-CoV-2 (PCR) (NEGATIVE) Group A Strep Antibody (NEGATIVE) 05/13/20 05/13/20 05/13/20 Range/Units 20:25 20:05 20:05 WBC 12.2 H (4.0-10.5) K/mm3 RBC 4.67 (4.1-5.6) M/mm3 Hgb 15.4 (12.5-18.0) gm/dl Hct 45.6 (42-50) % MCV 97.6 (78-100) fl MCH 33.0 H (26-32) pg MCHC 33.8 (32-36) g/dl RDW 13.7 (11.5-14.0) % Plt Count 214 (150-450) K/mm3 MPV 10.1 (7.5-11.0) fl Segmented Neutrophils 79 H (36.-66.) % Lymphocytes (Manual) 9 L (24-44) % Monocytes (Manual) 8 (0.0-12.0) % Eosinophils (Manual) 1 (0.00-3.0) % Atypical Lymphocytes 3 % Platelet Estimate NORMAL (NORMAL) RBC Morphology NORMAL ESR (0-15) mm/hr PT (8.83-12.87) SECONDS INR (0.8-3.0) APTT (24.1-36.1) SECONDS D-Dimer (215-500) ng/mL pO2/FiO2 Ratio 21.0 % VBG pH 7.51 H (7.32-7.42) VBG pCO2 at Pat Temp 33 L (42-55) mm/Hg VBG pO2 at Pat Temp 58 H (25-40) mm/Hg VBG HCO3 26.3 (22-28) meq/L VBG O2 Sat (Boo) 91.7 L (95-100) VBG Base Excess 3.6 H (-2.0-2.0) VBG Hemoglobin 15.7 VBG Carboxyhemoglobin 3.0 (0.0-6.9) % T HGB POC Potassium 2.9 L* (3.5-5.1) Sodium (137-145) mmol/L Potassium (3.5-5.1) mmol/L Chloride (98-107) mmol/L Carbon Dioxide (22-30) mmol/L Anion Gap (5-15) MEQ/L BUN (9-20) mg/dL Creatinine (0.66-1.25) mg/dL Estimated GFR ML/MIN Glucose (74-106) mg/dL Lactic Acid 0.9 (0.4-2.0) Calcium (8.4-10.2) mg/dL Magnesium (1.6-2.3) mg/dL Total Bilirubin (0.2-1.3) mg/dL AST (17-59) U/L ALT (0-50) U/L Alkaline Phosphatase (38-126) U/L Troponin I (0.000-0.034) ng/mL NT-Pro-B Natriuret Pep (0-900) pg/mL Serum Total Protein (6.3-8.2) g/dL Albumin (3.5-5.0) g/dL Amylase (30-110) U/L Lipase (23-300) U/L Urine Color (YELLOW) Urine Appearance (CLEAR) Urine pH (5-6) Ur Specific [place] (1.005-1.025) Urine Protein (Negative) Urine Ketones (NEGATIVE) Urine Blood (0-5) Jass/ul Urine Nitrite (NEGATIVE) Urine Bilirubin (NEGATIVE) Urine Urobilinogen (0-1) mg/dL Ur Leukocyte Esterase (NEGATIVE) Urine WBC (Auto) (0-5) /HPF Urine RBC (Auto) (0-2) /HPF U Epithel Cells (Auto) (FEW) /HPF Urine Bacteria (Auto) (NEGATIVE) /HPF Amorphous Crystals (NEGATIVE) /HPF Urine Mucus (Auto) (NEGATIVE) /HPF Urine Culture Reflexed (NO) Urine Glucose (NEGATIVE) mg/dL Monoscreen (Negative) Influenza Type A Ag (NEGATIVE) Influenza Type B Ag (NEGATIVE) RSV (PCR) (Negative) SARS-CoV-2 (PCR) (NEGATIVE) Group A Strep Antibody (NEGATIVE) - Progress Progress: unchanged Discussed with : Michael Will see patient in: hospital (observation) Counseled pt/family regarding: lab results, diagnosis, rad results - Progress Progress Note: 05/13/20 20:42 I was not involved in this patient's care. (WILMA DAIGLE) - Departure Departure Disposition: Observation Critical Care Time: No - Departure Clinical Impression: Vomiting, Dyspnea, COPD (chronic obstructive pulmonary disease), Acute pancreatitis, Arthritis, GERD (gastroesophageal reflux disease) Condition: Stable Referrals: BRENDA MARC MD [Primary Care Provider] - Instructions: Chronic Obstructive Pulmonary Disease
[2020-05-13] MEDS ORDERED: Zofran 4 MG/2 ML VIAL IV ONE (19:44)
[2020-05-13] MEDS ORDERED: SUBLIMAZE 100 MCG/2 ML IV ONE (19:44)
[2020-05-13] MEDS ORDERED: Sodium Chloride 0.9% 1000 ML 1,000 ML IV SCH (19:45)
[2020-05-13 20:18] LABS: VBG BASE EXCESS 3.6 (-2.0-2.0); VBG HCO3- 26.3 meq/L (22-28); VBG HEMOGLOBIN 15.7; VBG O2 SATURATION 91.7 (95-100); VBG pH 7.51 (7.32-7.42)
[2020-05-13 20:19] LABS: VBG POTASSIUM 2.9 (3.5-5.1)
[2020-05-13 20:33] LABS: Hematocrit 45.6 % (42-50); Hemoglobin 15.4 gm/dl (12.5-18.0); Mean Cell Volume 97.6 fl (78-100); Mean Corpuscular Hgb Concent. 33.8 g/dl (32-36); Mean Platelet Volume 10.1 fl (7.5-11.0); Platelet Count 214 K/mm3 (150-450); Red Blood Count 4.67 M/mm3 (4.1-5.6); Red Cell Distribution Width 13.7 % (11.5-14.0); White Blood Count 12.2 K/mm3 (4.0-10.5)
[2020-05-13] MEDS ORDERED: SUBLIMAZE 100 MCG/2 ML ONE (20:33)
[2020-05-13] MEDS ORDERED: Zofran 4 MG/2 ML VIAL ONE (20:33)
[2020-05-13 20:46] LABS: INR 1.3 (0.8-3.0); PROTIME 14.7 SECONDS (8.83-12.87)
[2020-05-13 20:48] LABS: PTT 29.6 SECONDS (24.1-36.1)
[2020-05-13 20:49] LABS: ALBUMIN 3.9 g/dL (3.5-5.0); ALKALINE PHOSPHATASE 84 U/L (38-126); AMYLASE 75 U/L (30-110); ANION GAP 12.5 MEQ/L (5-15); BLOOD UREA NITROGEN 14 mg/dL (9-20); CHLORIDE 99 mmol/L (98-107); Calcium 8.9 mg/dL (8.4-10.2); Carbon Dioxide 26 mmol/L (22-30); Creatinine 1 0.68 mg/dL (0.66-1.25); EST GLOMERULAR FILTRATION RATE > 60.0 ML/MIN; Glucose 107 mg/dL (74-106); LIPASE 116 U/L (23-300); SGOT/AST 40 U/L (17-59); SGPT/ALT 40 U/L (0-50); SODIUM 135 mmol/L (137-145); Total Protein 7.4 g/dL (6.3-8.2)
[2020-05-13] MEDS ORDERED: POTASSIUM CHLORIDE 20 mEq IN WATER 100ML 20 MEQ/100 ML BAG IV ONE (20:57)
[2020-05-13 21:01] LABS: Group A Strep NOT DETECTED (NEGATIVE)
[2020-05-13 21:09] LABS: INFLUENZA A NEGATIVE (NEGATIVE); INFLUENZA B NEGATIVE (NEGATIVE); RESPIRATORY SYNCTIAL VIRUS NEGATIVE (Negative)
[2020-05-13 21:17] LABS: MAGNESIUM 2.3 mg/dL (1.6-2.3)
[2020-05-13 21:23] LABS: Amourphous Crystal FEW /HPF (NEGATIVE); Appearance SLIGHTLY CLOUDY (CLEAR); Bacteria RARE /HPF (NEGATIVE); Bilirubin NEGATIVE (NEGATIVE); Blood NEGATIVE Ery/ul (0-5); Glucose NEGATIVE (NEGATIVE); Ketones SMALL (NEGATIVE); Leukocyte Esterase NEGATIVE (NEGATIVE); Mucus SLIGHT /HPF (NEGATIVE); Nitrite NEGATIVE (NEGATIVE); Protein,Urine Dip 30 (Negative); RBC 0-2 /HPF (0-2); Specific Gravity 1.018 (1.005-1.025); Urobilinogen 4 mg/dL (0-1)
[2020-05-13 21:54] LABS: ATYPICAL LYMPHS 3 %; Eosinophil 1 % (0.00-3.0); Lymphocytes 9 % (24-44); Monocyte 8 % (0.0-12.0); Neutrophils 79 % (36.-66.); Platelet Estimate NORMAL (NORMAL); Total Cells Counted 100
[2020-05-13] MEDS ORDERED: POTASSIUM CHLORIDE 20 mEq IN WATER 100ML 100 ML IV ONE (21:58)
[2020-05-14] MEDS ORDERED: SUBLIMAZE 100 MCG/2 ML IV ONE (01:32)
[2020-05-14] MEDS ORDERED: SUBLIMAZE 100 MCG/2 ML ONE ×3 (01:36→16:48)
[2020-05-14] MEDS ORDERED: Phenergan 25 MG INJ IM ONE (01:45)
[2020-05-14] MEDS ORDERED: Phenergan 25 MG INJ ONE (01:48)
[2020-05-14 02:16] LABS: ANION GAP 10.8 MEQ/L (5-15); BLOOD UREA NITROGEN 13 mg/dL (9-20); CHLORIDE 101 mmol/L (98-107); Calcium 8.8 mg/dL (8.4-10.2); Carbon Dioxide 26 mmol/L (22-30); Creatinine 1 0.74 mg/dL (0.66-1.25); EST GLOMERULAR FILTRATION RATE > 60.0 ML/MIN; Glucose 109 mg/dL (74-106); Potassium 3.2 mmol/L (3.5-5.1); SODIUM 135 mmol/L (137-145)
[2020-05-14] MEDS ORDERED: POTASSIUM CHLORIDE 20 mEq IN WATER 100ML 20 MEQ/100 ML BAG IV ONE (02:38)
[2020-05-14] MEDS ORDERED: Phenergan 25 MG INJ IM PRN (03:25)
[2020-05-14] MEDS ORDERED: Sodium Chloride 0.9% 1000 ML 1,000 ML IV SCH (03:30)
[2020-05-14] MEDS ORDERED: POTASSIUM CHLORIDE 20 mEq IN WATER 100ML 100 ML IV ONE (03:33)
[2020-05-14 06:03] LABS: Hematocrit 45.9 % (42-50); Hemoglobin 15.3 gm/dl (12.5-18.0); Mean Cell Volume 98.3 fl (78-100); Mean Corpuscular Hemoglobin 32.8 pg (26-32); Mean Corpuscular Hgb Concent. 33.3 g/dl (32-36); Mean Platelet Volume 10.2 fl (7.5-11.0); Platelet Count 231 K/mm3 (150-450); Red Blood Count 4.67 M/mm3 (4.1-5.6); Red Cell Distribution Width 13.7 % (11.5-14.0); White Blood Count 12.3 K/mm3 (4.0-10.5)
[2020-05-14 06:04] LABS: ALBUMIN 3.8 g/dL (3.5-5.0); ALKALINE PHOSPHATASE 83 U/L (38-126); AMYLASE 74 U/L (30-110); ANION GAP 11.7 MEQ/L (5-15); BLOOD UREA NITROGEN 13 mg/dL (9-20); CHLORIDE 102 mmol/L (98-107); Calcium 9.2 mg/dL (8.4-10.2); Carbon Dioxide 26 mmol/L (22-30); Creatinine 1 0.75 mg/dL (0.66-1.25); EST GLOMERULAR FILTRATION RATE > 60.0 ML/MIN; Glucose 102 mg/dL (74-106); LIPASE 153 U/L (23-300); Potassium 3.5 mmol/L (3.5-5.1); SGOT/AST 52 U/L (17-59); SGPT/ALT 47 U/L (0-50); SODIUM 136 mmol/L (137-145); Total Protein 7.3 g/dL (6.3-8.2)
--- NOTE | 2020-05-14 08:00 | PCM.HP ---
History of Present Illness - Chief Complaint Chief Complaint: acute pancreatitis; dyspnea; vomiting; hypokalemia. History of Present Illness: is a 64 year old male who was admitted last week with acute pancreatitis, he admitted to alcohol use just prior to admission and drinks reg ularly, his gallbladder ultrasound was negative at that time and ct scan showed some inflammatory peripancreatic stranding consistent with pancreatitis, his white count and enzymes normalized with gutrest and he was discharged home when tolerating po. He began feeling worse after going home and was unable to eat, has had no bowel movement for several days but states he has not been eating so doesn't feel like anything is in there. He has felt feverish and nauseated, no vomiting. - Review of Systems Constitutional: No Fever, No Chills Respiratory: No Cough, No Short Of Breath Cardiac: No Chest Pain, No Edema, No Syncope Abdominal/Gastrointestinal: Abdominal Pain, Nausea, No Vomiting, No Diarrhea Skin: No Symptoms All Other Systems: Reviewed and Negative Medications & Allergies Home Medications: Home Medication List Omeprazole 10 mg PO DAILY 12/12/19 [History Confirmed 05/14/20] Naproxen 500 mg [Naprosyn 500 MG] 500 mg PO BID 05/08/20 [History Confirmed 05/14/20] Zolpidem Tartrate [Ambien Cr] 10 mg PO HS 05/08/20 [History Confirmed 05/14/20] Albuterol/Ipratropium 3ml Neb* [DUONEB 0.5-3 MG/3 ml Neb] 3 ml IH QIDRT #100 ampul.neb 05/11/20 [Rx Confirmed 05/14/20] Hydrocodone/APAP 5-325 Tab^^^ [[place] 5-325 Tablet^^^] 1 tab PO Q6HPRN PRN #20 tablet MDD 6 05/11/20 [Rx Confirmed 05/14/20] Nebulizer/Compressor [Comp-Air Nebulizer System] 1 each MC TID 05/14/20 [History Confirmed 05/14/20] Allergies/Adverse Reactions: Allergies Allergy/AdvReac Type Severity Reaction Status Date / Time penicillin G Allergy Unknown Verified 12/12/19 14:45 - Past Medical History Past Medical History: Yes Neurological History: No Pertinent History ENT History: No Pertinent History Cardiac History: No Pertinent History Respiratory History: Bronchitis, COPD, Emphysema, Other Endocrine Medical History: No Pertinent History Musculoskelatal History: Arthritis GI Medical History: Diverticulitis, GERD, Pancreatitis History: No Pertinent History Pyscho-Social History: No Pertinent History Male Reproductive Disorders: No Pertinent History Comment: rotator cuff surgery scheduled for June 15 - Past Surgical History Past Surgical History: Yes Neuro Surgical History: No Pertinent History Cardiac History: No Pertinent History Respiratory Surgery: No Pertinent History GI Surgical History: Hernia Repair Genitourinary Surgical Hx: No Pertinent History Musculskeletal Surgical Hx: No Pertinent History Male Surgical History: No Pertinent History - Social History Smoking Status: Current some day smoker How long have you smoked: 40 years Exposure to second hand smoke: Yes Alcohol: Occasionally Drug Use: marijuana Significant Family History: no pertinent family hx - Physical Exam Vital Signs: Vital Signs - 24 hr Temp Pulse Resp BP Pulse Ox 05/14/20 06:50 71 18 95 05/14/20 05:00 73 16 129/98 97 05/14/20 04:00 74 16 130/92 94 L 05/14/20 03:24 96 05/14/20 03:00 71 16 129/93 96 05/14/20 01:38 73 18 146/96 96 05/13/20 22:11 81 17 138/96 97 05/13/20 18:35 99.4 F 89 18 174/90 96 General Appearance: no apparent distress Respiratory Exam: normal breath sounds, lungs clear, No respiratory distress Cardiovascular Exam: regular rate/rhythm, normal heart sounds, normal peripheral pulses Gastrointestinal/Abdomen Exam: tenderness (epigastrium), No guarding, No rebound Skin Exam: normal color, warm, dry, No rash Results - Labs Lab/Micro Results: Lab Results-Last 24 Hours 05/13/20 05/13/20 05/13/20 Range/Units 20:05 20:05 20:25 WBC 12.2 H (4.0-10.5) K/mm3 RBC 4.67 (4.1-5.6) M/mm3 Hgb 15.4 (12.5-18.0) gm/dl Hct 45.6 (42-50) % MCV 97.6 (78-100) fl MCH 33.0 H (26-32) pg MCHC 33.8 (32-36) g/dl RDW 13.7 (11.5-14.0) % Plt Count 214 (150-450) K/mm3 MPV 10.1 (7.5-11.0) fl Segmented Neutrophils 79 H (36.-66.) % Lymphocytes (Manual) 9 L (24-44) % Monocytes (Manual) 8 (0.0-12.0) % Eosinophils (Manual) 1 (0.00-3.0) % Atypical Lymphocytes 3 % Platelet Estimate NORMAL (NORMAL) RBC Morphology NORMAL ESR (0-15) mm/hr PT (8.83-12.87) SECONDS INR (0.8-3.0) APTT (24.1-36.1) SECONDS D-Dimer (215-500) ng/mL pO2/FiO2 Ratio 21.0 % VBG pH 7.51 H (7.32-7.42) VBG pCO2 at Pat Temp 33 L (42-55) mm/Hg VBG pO2 at Pat Temp 58 H (25-40) mm/Hg VBG HCO3 26.3 (22-28) meq/L VBG O2 Sat (Boo) 91.7 L (95-100) VBG Base Excess 3.6 H (-2.0-2.0) VBG Hemoglobin 15.7 VBG Carboxyhemoglobin 3.0 (0.0-6.9) % T HGB POC Potassium 2.9 L* (3.5-5.1) Sodium (137-145) mmol/L Potassium (3.5-5.1) mmol/L Chloride (98-107) mmol/L Carbon Dioxide (22-30) mmol/L Anion Gap (5-15) MEQ/L BUN (9-20) mg/dL Creatinine (0.66-1.25) mg/dL Estimated GFR ML/MIN Glucose (74-106) mg/dL Lactic Acid 0.9 (0.4-2.0) Calcium (8.4-10.2) mg/dL Magnesium (1.6-2.3) mg/dL Total Bilirubin (0.2-1.3) mg/dL AST (17-59) U/L ALT (0-50) U/L Alkaline Phosphatase (38-126) U/L Troponin I (0.000-0.034) ng/mL NT-Pro-B Natriuret Pep (0-900) pg/mL Serum Total Protein (6.3-8.2) g/dL Albumin (3.5-5.0) g/dL Amylase (30-110) U/L Lipase (23-300) U/L Urine Color (YELLOW) Urine Appearance (CLEAR) Urine pH (5-6) Ur Specific [place] (1.005-1.025) Urine Protein (Negative) Urine Ketones (NEGATIVE) Urine Blood (0-5) Jass/ul Urine Nitrite (NEGATIVE) Urine Bilirubin (NEGATIVE) Urine Urobilinogen (0-1) mg/dL Ur Leukocyte Esterase (NEGATIVE) Urine WBC (Auto) (0-5) /HPF Urine RBC (Auto) (0-2) /HPF U Epithel Cells (Auto) (FEW) /HPF Urine Bacteria (Auto) (NEGATIVE) /HPF Amorphous Crystals (NEGATIVE) /HPF Urine Mucus (Auto) (NEGATIVE) /HPF Urine Culture Reflexed (NO) Urine Glucose (NEGATIVE) mg/dL Monoscreen (Negative) Influenza Type A Ag (NEGATIVE) Influenza Type B Ag (NEGATIVE) RSV (PCR) (Negative) SARS-CoV-2 (PCR) (NEGATIVE) Group A Strep Antibody (NEGATIVE) 05/13/20 05/13/20 05/13/20 Range/Units 20:25 20:25 20:25 WBC (4.0-10.5) K/mm3 RBC (4.1-5.6) M/mm3 Hgb (12.5-18.0) gm/dl Hct (42-50) % MCV (78-100) fl MCH (26-32) pg MCHC (32-36) g/dl RDW (11.5-14.0) % Plt Count (150-450) K/mm3 MPV (7.5-11.0) fl Segmented Neutrophils (36.-66.) % Lymphocytes (Manual) (24-44) % Monocytes (Manual) (0.0-12.0) % Eosinophils (Manual) (0.00-3.0) % Atypical Lymphocytes % Platelet Estimate (NORMAL) RBC Morphology ESR (0-15) mm/hr PT (8.83-12.87) SECONDS INR (0.8-3.0) APTT (24.1-36.1) SECONDS D-Dimer (215-500) ng/mL pO2/FiO2 Ratio % VBG pH (7.32-7.42) VBG pCO2 at Pat Temp (42-55) mm/Hg VBG pO2 at Pat Temp (25-40) mm/Hg VBG HCO3 (22-28) meq/L VBG O2 Sat (Boo) (95-100) VBG Base Excess (-2.0-2.0) VBG Hemoglobin VBG Carboxyhemoglobin (0.0-6.9) % T HGB POC Potassium (3.5-5.1) Sodium 135 L (137-145) mmol/L Potassium 3.0 L (3.5-5.1) mmol/L Chloride 99 (98-107) mmol/L Carbon Dioxide 26 (22-30) mmol/L Anion Gap 12.5 (5-15) MEQ/L BUN 14 (9-20) mg/dL Creatinine 0.68 (0.66-1.25) mg/dL Estimated GFR > 60.0 ML/MIN Glucose 107 H (74-106) mg/dL Lactic Acid (0.4-2.0) Calcium 8.9 (8.4-10.2) mg/dL Magnesium 2.3 (1.6-2.3) mg/dL Total Bilirubin 1.10 (0.2-1.3) mg/dL AST 40 (17-59) U/L ALT 40 (0-50) U/L Alkaline Phosphatase 84 (38-126) U/L Troponin I < 0.012 (0.000-0.034) ng/mL NT-Pro-B Natriuret Pep 114 (0-900) pg/mL Serum Total Protein 7.4 (6.3-8.2) g/dL Albumin 3.9 (3.5-5.0) g/dL Amylase 75 (30-110) U/L Lipase 116 (23-300) U/L Urine Color (YELLOW) Urine Appearance (CLEAR) Urine pH (5-6) Ur Specific [place] (1.005-1.025) Urine Protein (Negative) Urine Ketones (NEGATIVE) Urine Blood (0-5) Jass/ul Urine Nitrite (NEGATIVE) Urine Bilirubin (NEGATIVE) Urine Urobilinogen (0-1) mg/dL Ur Leukocyte Esterase (NEGATIVE) Urine WBC (Auto) (0-5) /HPF Urine RBC (Auto) (0-2) /HPF U Epithel Cells (Auto) (FEW) /HPF Urine Bacteria (Auto) (NEGATIVE) /HPF Amorphous Crystals (NEGATIVE) /HPF Urine Mucus (Auto) (NEGATIVE) /HPF Urine Culture Reflexed (NO) Urine Glucose (NEGATIVE) mg/dL Monoscreen (Negative) Influenza Type A Ag (NEGATIVE) Influenza Type B Ag (NEGATIVE) RSV (PCR) (Negative) SARS-CoV-2 (PCR) (NEGATIVE) Group A Strep Antibody (NEGATIVE) 05/13/20 05/13/20 05/13/20 Range/Units 20:25 20:25 20:25 WBC (4.0-10.5) K/mm3 RBC (4.1-5.6) M/mm3 Hgb (12.5-18.0) gm/dl Hct (42-50) % MCV (78-100) fl MCH (26-32) pg MCHC (32-36) g/dl RDW (11.5-14.0) % Plt Count (150-450) K/mm3 MPV (7.5-11.0) fl Segmented Neutrophils (36.-66.) % Lymphocytes (Manual) (24-44) % Monocytes (Manual) (0.0-12.0) % Eosinophils (Manual) (0.00-3.0) % Atypical Lymphocytes % Platelet Estimate (NORMAL) RBC Morphology ESR 43 H (0-15) mm/hr PT 14.7 H (8.83-12.87) SECONDS INR 1.30 (0.8-3.0) APTT 29.6 (24.1-36.1) SECONDS D-Dimer 6006 H* (215-500) ng/mL pO2/FiO2 Ratio % VBG pH (7.32-7.42) VBG pCO2 at Pat Temp (42-55) mm/Hg VBG pO2 at Pat Temp (25-40) mm/Hg VBG HCO3 (22-28) meq/L VBG O2 Sat (Boo) (95-100) VBG Base Excess (-2.0-2.0) VBG Hemoglobin VBG Carboxyhemoglobin (0.0-6.9) % T HGB POC Potassium (3.5-5.1) Sodium (137-145) mmol/L Potassium (3.5-5.1) mmol/L Chloride (98-107) mmol/L Carbon Dioxide (22-30) mmol/L Anion Gap (5-15) MEQ/L BUN (9-20) mg/dL Creatinine (0.66-1.25) mg/dL Estimated GFR ML/MIN Glucose (74-106) mg/dL Lactic Acid (0.4-2.0) Calcium (8.4-10.2) mg/dL Magnesium (1.6-2.3) mg/dL Total Bilirubin (0.2-1.3) mg/dL AST (17-59) U/L ALT (0-50) U/L Alkaline Phosphatase (38-126) U/L Troponin I (0.000-0.034) ng/mL NT-Pro-B Natriuret Pep (0-900) pg/mL Serum Total Protein (6.3-8.2) g/dL Albumin (3.5-5.0) g/dL Amylase (30-110) U/L Lipase (23-300) U/L Urine Color (YELLOW) Urine Appearance (CLEAR) Urine pH (5-6) Ur Specific [place] (1.005-1.025) Urine Protein (Negative) Urine Ketones (NEGATIVE) Urine Blood (0-5) Jass/ul Urine Nitrite (NEGATIVE) Urine Bilirubin (NEGATIVE) Urine Urobilinogen (0-1) mg/dL Ur Leukocyte Esterase (NEGATIVE) Urine WBC (Auto) (0-5) /HPF Urine RBC (Auto) (0-2) /HPF U Epithel Cells (Auto) (FEW) /HPF Urine Bacteria (Auto) (NEGATIVE) /HPF Amorphous Crystals (NEGATIVE) /HPF Urine Mucus (Auto) (NEGATIVE) /HPF Urine Culture Reflexed (NO) Urine Glucose (NEGATIVE) mg/dL Monoscreen NEGATIVE (Negative) Influenza Type A Ag (NEGATIVE) Influenza Type B Ag (NEGATIVE) RSV (PCR) (Negative) SARS-CoV-2 (PCR) (NEGATIVE) Group A Strep Antibody (NEGATIVE) 05/13/20 05/13/20 05/13/20 Range/Units 20:25 21:00 23:16 WBC (4.0-10.5) K/mm3 RBC (4.1-5.6) M/mm3 Hgb (12.5-18.0) gm/dl Hct (42-50) % MCV (78-100) fl MCH (26-32) pg MCHC (32-36) g/dl RDW (11.5-14.0) % Plt Count (150-450) K/mm3 MPV (7.5-11.0) fl Segmented Neutrophils (36.-66.) % Lymphocytes (Manual) (24-44) % Monocytes (Manual) (0.0-12.0) % Eosinophils (Manual) (0.00-3.0) % Atypical Lymphocytes % Platelet Estimate (NORMAL) RBC Morphology ESR (0-15) mm/hr PT (8.83-12.87) SECONDS INR (0.8-3.0) APTT (24.1-36.1) SECONDS D-Dimer (215-500) ng/mL pO2/FiO2 Ratio % VBG pH (7.32-7.42) VBG pCO2 at Pat Temp (42-55) mm/Hg VBG pO2 at Pat Temp (25-40) mm/Hg VBG HCO3 (22-28) meq/L VBG O2 Sat (Boo) (95-100) VBG Base Excess (-2.0-2.0) VBG Hemoglobin VBG Carboxyhemoglobin (0.0-6.9) % T HGB POC Potassium (3.5-5.1) Sodium (137-145) mmol/L Potassium (3.5-5.1) mmol/L Chloride (98-107) mmol/L Carbon Dioxide (22-30) mmol/L Anion Gap (5-15) MEQ/L BUN (9-20) mg/dL Creatinine (0.66-1.25) mg/dL Estimated GFR ML/MIN Glucose (74-106) mg/dL Lactic Acid (0.4-2.0) Calcium (8.4-10.2) mg/dL Magnesium (1.6-2.3) mg/dL Total Bilirubin (0.2-1.3) mg/dL AST (17-59) U/L ALT (0-50) U/L Alkaline Phosphatase (38-126) U/L Troponin I < 0.012 (0.000-0.034) ng/mL NT-Pro-B Natriuret Pep (0-900) pg/mL Serum Total Protein (6.3-8.2) g/dL Albumin (3.5-5.0) g/dL Amylase (30-110) U/L Lipase (23-300) U/L Urine Color YELLOW (YELLOW) Urine Appearance SLIGHTLY CLOUDY (CLEAR) Urine pH 7.0 (5-6) Ur Specific [place] 1.018 (1.005-1.025) Urine Protein 30 (Negative) Urine Ketones SMALL (NEGATIVE) Urine Blood NEGATIVE (0-5) Jass/ul Urine Nitrite NEGATIVE (NEGATIVE) Urine Bilirubin NEGATIVE (NEGATIVE) Urine Urobilinogen 4 (0-1) mg/dL Ur Leukocyte Esterase NEGATIVE (NEGATIVE) Urine WBC (Auto) 3-5 (0-5) /HPF Urine RBC (Auto) 0-2 (0-2) /HPF U Epithel Cells (Auto) NONE (FEW) /HPF Urine Bacteria (Auto) RARE (NEGATIVE) /HPF Amorphous Crystals FEW (NEGATIVE) /HPF Urine Mucus (Auto) SLIGHT (NEGATIVE) /HPF Urine Culture Reflexed NO (NO) Urine Glucose NEGATIVE (NEGATIVE) mg/dL Monoscreen (Negative) Influenza Type A Ag NEGATIVE (NEGATIVE) Influenza Type B Ag NEGATIVE (NEGATIVE) RSV (PCR) NEGATIVE (Negative) SARS-CoV-2 (PCR) (NEGATIVE) Group A Strep Antibody NOT DETECTED (NEGATIVE) 05/14/20 05/14/20 05/14/20 Range/Units 00:00 01:59 01:59 WBC (4.0-10.5) K/mm3 RBC (4.1-5.6) M/mm3 Hgb (12.5-18.0) gm/dl Hct (42-50) % MCV (78-100) fl MCH (26-32) pg MCHC (32-36) g/dl RDW (11.5-14.0) % Plt Count (150-450) K/mm3 MPV (7.5-11.0) fl Segmented Neutrophils (36.-66.) % Lymphocytes (Manual) (24-44) % Monocytes (Manual) (0.0-12.0) % Eosinophils (Manual) (0.00-3.0) % Atypical Lymphocytes % Platelet Estimate (NORMAL) RBC Morphology ESR (0-15) mm/hr PT (8.83-12.87) SECONDS INR (0.8-3.0) APTT (24.1-36.1) SECONDS D-Dimer (215-500) ng/mL pO2/FiO2 Ratio % VBG pH (7.32-7.42) VBG pCO2 at Pat Temp (42-55) mm/Hg VBG pO2 at Pat Temp (25-40) mm/Hg VBG HCO3 (22-28) meq/L VBG O2 Sat (Boo) (95-100) VBG Base Excess (-2.0-2.0) VBG Hemoglobin VBG Carboxyhemoglobin (0.0-6.9) % T HGB POC Potassium (3.5-5.1) Sodium 135 L (137-145) mmol/L Potassium 3.2 L (3.5-5.1) mmol/L Chloride 101 (98-107) mmol/L Carbon Dioxide 26 (22-30) mmol/L Anion Gap 10.8 (5-15) MEQ/L BUN 13 (9-20) mg/dL Creatinine 0.74 (0.66-1.25) mg/dL Estimated GFR > 60.0 ML/MIN Glucose 109 H (74-106) mg/dL Lactic Acid (0.4-2.0) Calcium 8.8 (8.4-10.2) mg/dL Magnesium (1.6-2.3) mg/dL Total Bilirubin (0.2-1.3) mg/dL AST (17-59) U/L ALT (0-50) U/L Alkaline Phosphatase (38-126) U/L Troponin I < 0.012 (0.000-0.034) ng/mL NT-Pro-B Natriuret Pep (0-900) pg/mL Serum Total Protein (6.3-8.2) g/dL Albumin (3.5-5.0) g/dL Amylase (30-110) U/L Lipase (23-300) U/L Urine Color (YELLOW) Urine Appearance (CLEAR) Urine pH (5-6) Ur Specific [place] (1.005-1.025) Urine Protein (Negative) Urine Ketones (NEGATIVE) Urine Blood (0-5) Jass/ul Urine Nitrite (NEGATIVE) Urine Bilirubin (NEGATIVE) Urine Urobilinogen (0-1) mg/dL Ur Leukocyte Esterase (NEGATIVE) Urine WBC (Auto) (0-5) /HPF Urine RBC (Auto) (0-2) /HPF U Epithel Cells (Auto) (FEW) /HPF Urine Bacteria (Auto) (NEGATIVE) /HPF Amorphous Crystals (NEGATIVE) /HPF Urine Mucus (Auto) (NEGATIVE) /HPF Urine Culture Reflexed (NO) Urine Glucose (NEGATIVE) mg/dL Monoscreen (Negative) Influenza Type A Ag (NEGATIVE) Influenza Type B Ag (NEGATIVE) RSV (PCR) (Negative) SARS-CoV-2 (PCR) NEGATIVE (NEGATIVE) Group A Strep Antibody (NEGATIVE) 05/14/20 05/14/20 05/14/20 Range/Units 05:40 05:40 05:40 WBC 12.3 H (4.0-10.5) K/mm3 RBC 4.67 (4.1-5.6) M/mm3 Hgb 15.3 (12.5-18.0) gm/dl Hct 45.9 (42-50) % MCV 98.3 (78-100) fl MCH 32.8 H (26-32) pg MCHC 33.3 (32-36) g/dl RDW 13.7 (11.5-14.0) % Plt Count 231 (150-450) K/mm3 MPV 10.2 (7.5-11.0) fl Segmented Neutrophils (36.-66.) % Lymphocytes (Manual) (24-44) % Monocytes (Manual) (0.0-12.0) % Eosinophils (Manual) (0.00-3.0) % Atypical Lymphocytes % Platelet Estimate (NORMAL) RBC Morphology ESR (0-15) mm/hr PT (8.83-12.87) SECONDS INR (0.8-3.0) APTT (24.1-36.1) SECONDS D-Dimer (215-500) ng/mL pO2/FiO2 Ratio % VBG pH (7.32-7.42) VBG pCO2 at Pat Temp (42-55) mm/Hg VBG pO2 at Pat Temp (25-40) mm/Hg VBG HCO3 (22-28) meq/L VBG O2 Sat (Boo) (95-100) VBG Base Excess (-2.0-2.0) VBG Hemoglobin VBG Carboxyhemoglobin (0.0-6.9) % T HGB POC Potassium (3.5-5.1) Sodium 136 L (137-145) mmol/L Potassium 3.5 (3.5-5.1) mmol/L Chloride 102 (98-107) mmol/L Carbon Dioxide 26 (22-30) mmol/L Anion Gap 11.7 (5-15) MEQ/L BUN 13 (9-20) mg/dL Creatinine 0.75 (0.66-1.25) mg/dL Estimated GFR > 60.0 ML/MIN Glucose 102 (74-106) mg/dL Lactic Acid (0.4-2.0) Calcium 9.2 (8.4-10.2) mg/dL Magnesium (1.6-2.3) mg/dL Total Bilirubin 1.10 (0.2-1.3) mg/dL AST 52 (17-59) U/L ALT 47 (0-50) U/L Alkaline Phosphatase 83 (38-126) U/L Troponin I < 0.012 (0.000-0.034) ng/mL NT-Pro-B Natriuret Pep (0-900) pg/mL Serum Total Protein 7.3 (6.3-8.2) g/dL Albumin 3.8 (3.5-5.0) g/dL Amylase 74 (30-110) U/L Lipase 153 (23-300) U/L Urine Color (YELLOW) Urine Appearance (CLEAR) Urine pH (5-6) Ur Specific [place] (1.005-1.025) Urine Protein (Negative) Urine Ketones (NEGATIVE) Urine Blood (0-5) Jass/ul Urine Nitrite (NEGATIVE) Urine Bilirubin (NEGATIVE) Urine Urobilinogen (0-1) mg/dL Ur Leukocyte Esterase (NEGATIVE) Urine WBC (Auto) (0-5) /HPF Urine RBC (Auto) (0-2) /HPF U Epithel Cells (Auto) (FEW) /HPF Urine Bacteria (Auto) (NEGATIVE) /HPF Amorphous Crystals (NEGATIVE) /HPF Urine Mucus (Auto) (NEGATIVE) /HPF Urine Culture Reflexed (NO) Urine Glucose (NEGATIVE) mg/dL Monoscreen (Negative) Influenza Type A Ag (NEGATIVE) Influenza Type B Ag (NEGATIVE) RSV (PCR) (Negative) SARS-CoV-2 (PCR) (NEGATIVE) Group A Strep Antibody (NEGATIVE) - Radiology Impressions Radiology Exams & Impressions: Radiology Procedures Category Date Time Status ABDOMEN AND PELVIS W CONTRAST [CT] Stat Exams 05/13/20 19:46 Taken CHEST WITH CONTRAST [CT] Stat Exams 05/13/20 21:06 Taken GALLBLADDER [US] Stat Exams 05/14/20 Ordered - Other Procedures and Tests Respiratory Therapy 05/14/20 03:25 Oxygen Nasal Cannula 2 lpm 05/14/20 06:50 Respiratory Therapy Assessment DAILY Assessment/Plan (1) Acute pancreatitis Current Visit: Yes Status: Acute Assessment & Plan: enzymes are normal, ct in ER last night shows hyperdense material in gallbladder, ?sludge. will keep npo, IV fluids and analgesic/antiemetics. surgery consult ordered, might need to consider HIDA scan after resolution of current illness. Code(s): K85.90 - ACUTE PANCREATITIS WITHOUT NECROSIS OR INFECTION, UNSP (2) COPD (chronic obstructive pulmonary disease) Current Visit: Yes Status: Acute
[2020-05-14] MEDS: Zofran 4 MG/2 ML VIAL IV PRN ×3 (08:05→20:02)
[2020-05-14] MEDS: MORPHINE SULFATE 4 MG INJ IV PRN ×4 (08:07→22:08)
[2020-05-14] MEDS: Sodium Chloride 0.9% W/ 20 mEq KCl/LITER 1,000 ML IV SCH ×2 (08:14→23:12)
[2020-05-14] MEDS: PROTONIX 40 MG IV IV SCH (08:17)
[2020-05-14] MEDS ORDERED: DULCOLAX 5 MG PO PRN (08:22)
[2020-05-14] MEDS ORDERED: DULCOLAX 5 MG PO ONE (08:24)
--- NOTE | 2020-05-14 09:12 | XRAY ---
Indication: Elevated WBC and fever. Elevated d-dimer. Recent pancreatitis. Multiple contiguous axial images obtained through the chest using 100 cc Isovue 370 contrast and PE protocol. Comparison: May 08. Adequate opacification of the pulmonary arteries to include the lobar and segmental branches. No pulmonary embolus. Heart is not enlarged. Aorta is normal in course and caliber. Stable small subcarinal and left hilar calcified nodes. No pathologic mediastinal/hilar lymphadenopathy. Stable small hiatal hernia. Lungs again demonstrates mild pulmonary emphysema and subsegmental atelectasis/scarring in both lung bases and lingula. Bony thorax intact again with minimal degenerative changes throughout the spine. CT abdomen/pelvis reported separately. Impression: Negative pulmonary embolus. Stable pulmonary emphysema and old granulomatous disease. No new/acute cardiopulmonary abnormalities. Comment: Preliminary interpretation was made by [facility]. No critical discrepancy.
--- NOTE | 2020-05-14 09:16 | XRAY ---
Indication: Elevated WBC, abdomen pain, nausea/emesis, and fever. Elevated d-dimer. Recent pancreatitis. Multiple contiguous axial images obtained through the abdomen and pelvis using 100 cc Isovue 370 contrast. Comparison: May 08. CT chest reported separately. Worsening moderate pancreatitis involving the head and body. No free fluid/air. New gallbladder sludge and tiny gravel/stone. Noncontrasted stomach and bowel loops remain nonobstructed again with normal appendix and mild colonic diverticulosis. Stable hepatic/splenic calcified granulomas. Remaining liver, gallbladder, spleen, adrenal glands, kidneys, ureters, and bladder are unremarkable. Stable mild aortoiliac calcifications without AAA. Impression: 1. Worsening pancreatitis. 2. New gallbladder sludge and tiny gravel/stone. 3. Stable colonic diverticulosis and old granulomatous disease. Comment: Preliminary interpretation was made by [facility]. No critical discrepancy.
[2020-05-14 10:13] LABS: BAND 2 % (0.0-2.0); Eosinophil 1 % (0.00-3.0); Lymphocytes 10 % (24-44); Monocyte 9 % (0.0-12.0); Neutrophils 78 % (36.-66.); Total Cells Counted 100
[2020-05-14 10:14] LABS: Platelet Estimate NORMAL (NORMAL); Toxic Granulation 1+
[2020-05-14] MEDS ORDERED: DUONEB 0.5-3 MG/3 ml Neb IH SCH (11:00)
--- NOTE | 2020-05-14 12:40 | XRAY ---
Indication: Abdomen pain. Pancreatitis. Two-dimensional gallbladder sonogram performed. Comparison: May 09, 2020. Pancreas is again not well evaluated due to overlying bowel gas. Gallbladder normally distended now with moderate sludge. Again no gallstones, wall thickening, or pericholecystic fluid. Common bile duct measures 4.5 mm. No intrahepatic biliary distention. Remaining visualized pancreas and right kidney sonographically unremarkable. Right kidney again measures 10.9 cm in length. Impression: Pancreas again not well-visualized. New gallbladder sludge without cholelithiasis, cholecystitis, or biliary distention.
[2020-05-14] MEDS ORDERED: Levofloxacin 500MG/100ML D5W 500 MG/100 ML BAG IV SCH (12:45)
[2020-05-14] MEDS ORDERED: Lactated Ringers 1,000 ML IV SCH (13:00)
[2020-05-14] MEDS ORDERED: CLINDAMYCIN-D5W 900 MG/50 ML*** 900 MG/50 ML BAG IV SCH (13:00)
[2020-05-14] MEDS ORDERED: DIPRIVAN 200 MG/20 ML IV ONE (15:42)
[2020-05-14] MEDS ORDERED: BRIDION 200MG/2ML IV ONE (15:42)
[2020-05-14] MEDS ORDERED: Xylocaine-Mpf 2% 5 Ml Vial ONE (15:42)
[2020-05-14] MEDS ORDERED: TORAdol 30 mg Injection ONE (15:42)
[2020-05-14] MEDS ORDERED: Zemuron 100 MG/10 ML ONE (15:42)
[2020-05-14] MEDS ORDERED: Decadron 4 MG INJ ONE (15:42)
[2020-05-14] MEDS ORDERED: Zofran 4 MG/2 ML VIAL ONE (15:42)
[2020-05-14] MEDS ORDERED: Sensorcaine 0.25% 10 ML ONE (16:25)
[2020-05-14] MEDS ORDERED: DILAUDID 2 MG INJECTION ONE (16:48)
[2020-05-14] MEDS: Ambien 10 MG PO PRN (20:57)
[2020-05-14] MEDS ORDERED: ZOLPIDEM TARTRATE 10 MG PO SCH (22:00)
[2020-05-15] MEDS: MORPHINE SULFATE 4 MG INJ IV PRN ×6 (01:58→21:37)
[2020-05-15] MEDS: Zofran 4 MG/2 ML VIAL IV PRN (01:58)
[2020-05-15 05:29] LABS: Absolute Neutrophil Ct (ANC) 8.44 (1.4-6.9); BASOPHIL % 0.2 % (0.0-0.4); Basophil (Absolute #) 0.02 (0-0.4); Eosinophil (Absolute #) 0 (0-0.5); Hematocrit 44.9 % (42-50); Hemoglobin 14.7 gm/dl (12.5-18.0); Lymphocyte (Absolute #) 0.62 (1.0-4.6); Lymphocytes % 6.3 % (24.0-44.0); Mean Cell Volume 99.1 fl (78-100); Mean Corpuscular Hemoglobin 32.5 pg (26-32); Mean Corpuscular Hgb Concent. 32.7 g/dl (32-36); Mean Platelet Volume 9.8 fl (7.5-11.0); Monocyte (Absolute #) 0.83 (0.0-1.3); Monocytes % 8.4 % (0.0-12.0); Neutrophil % 85.1 % (36.0-66.0); Platelet Count 256 K/mm3 (150-450); Red Blood Count 4.53 M/mm3 (4.1-5.6); Red Cell Distribution Width 13.6 % (11.5-14.0); White Blood Count 9.9 K/mm3 (4.0-10.5)
[2020-05-15 05:41] LABS: ALBUMIN 3.1 g/dL (3.5-5.0); ALKALINE PHOSPHATASE 77 U/L (38-126); AMYLASE 58 U/L (30-110); ANION GAP 12.8 MEQ/L (5-15); BLOOD UREA NITROGEN 14 mg/dL (9-20); CHLORIDE 106 mmol/L (98-107); Calcium 8.5 mg/dL (8.4-10.2); Carbon Dioxide 23 mmol/L (22-30); Direct Bilirubin 0.3 mg/dL (0.0-0.4); EST GLOMERULAR FILTRATION RATE > 60.0 ML/MIN; Glucose 193 mg/dL (74-106); LIPASE 121 U/L (23-300); Potassium 4.2 mmol/L (3.5-5.1); SGOT/AST 50 U/L (17-59); SGPT/ALT 51 U/L (0-50); SODIUM 137 mmol/L (137-145); Total Protein 5.9 g/dL (6.3-8.2)
[2020-05-15] MEDS ORDERED: NORCO 5/325 MG PO PRN (07:25)
--- NOTE | 2020-05-15 08:33 | CONS ---
CONSULT DATE: 05/14/2020 HISTORY: The patient is a 64 year old gentleman who was in the hospital for pancreatitis and discharged a couple of days ago. He came back in with upper and lower abdominal pain radiating to his back. He had some emesis. He had a low grade fever in the past. He had some chronic obstructive pulmonary disease in the past. He had some reflux in the past. PAST MEDICAL HISTORY: Chronic obstructive pulmonary disease and emphysema in the past. He had some reflux. He had some diverticular disease in the past. PAST SURGICAL HISTORY: Rotator cuff repair in the past. Colonoscopy in the past. He had several polyps removed in the past. HOME MEDICATIONS: He has been on omeprazole, Naprosyn, zolpidem in the past. ALLERGIES: PENICILLIN G. FAMILY HISTORY: Negative in regards to this problem. SOCIAL HISTORY: No smoking or alcohol abuse. REVIEW OF SYSTEMS: Fourteen systems reviewed. Negative or noncontributory as above and per preadmission questionnaire. PHYSICAL EXAMINATION: GENERAL: He is feeling a little better now. He is afebrile. Vital signs stable this morning. No acute distress. HEENT: Sclera nonicteric. NECK: No JVD. CHEST: Equal excursion, nonlabored breathing. CVS: Regular rate and rhythm. ABDOMEN: Soft, mild tenderness upper abdomen. No peritoneal signs. EXTREMITIES: No significant edema. NEURO: Alert, oriented, moving extremities symmetrically. No gross motor deficits. PSYCH: Appropriate mood and affect. LAB DATA AND TESTS: His liver function test and lipase were normal today. His troponins were negative. COVID test was negative. White count was 12 yesterday. He had tiny gravel stone and sludge in the gallbladder. He had some inflammation in the pancreatic head and body consistent with pancreatitis. IMPRESSION: History of acute pancreatitis, question gallstone pancreatitis. He has sludge or tiny stones on recent CT scan. At this time he is feeling a little better. His enzymes are normal. He does not appear to have any duct obstructing issues going on at the moment. He would at some point benefit from cholecystectomy although he was explained that his current pain is more likely related to pancreatitis rather than the gallbladder itself. Removing the gallbladder decreases the risk of future episodes of recurrent pancreatitis created by sludge or stone passing through the duct system. Risks and benefits are fully explained but not limited to bleeding or infection, risk of trocar injury or hernia, risk of bowel, bladder or blood vessel injury, risk of bile leak, bile duct injury, retained stone or sludge possibly requiring further procedure either open or ERCP, general risk of anesthesia, deep venous thrombosis, pulmonary embolism, pneumonia, perioperative risk of aches, pains, bloating, constipation and/or loose stools possibly even chronic in nature and possibility his current pain may not improve with taking the gallbladder out as it could be related to pancreatitis, could develop chronic pancreatitis and possibly other issues. He understands. Will review the CT scans with the radiologist to decide on timing of cholecystectomy at some point.
--- NOTE | 2020-05-15 08:47 | PCM.NOTE ---
Date and Time: 05/15/20 08 Subjective Assessment: doing well at this time, tolerating po intake today. pain is well controlled Objective Exam General Appearance: no apparent distress, alert Skin Exam: normal color, warm, dry Respiratory Exam: normal breath sounds, lungs clear, No respiratory distress Cardiovascular Exam: regular rate/rhythm, normal heart sounds Gastrointestinal/Abdomen Exam: soft, other (dressings clean/dry/intact), No tenderness, No mass Extremity Exam: normal inspection, normal range of motion OBJECTIVE DATA Vital Signs: Vital Signs - 24 hr Temp Pulse Resp BP Pulse Ox 05/15/20 07:30 98.0 F 67 20 135/85 96 05/15/20 02:50 97.6 F 73 18 138/83 96 05/15/20 00:35 97.9 F 84 20 167/82 97 05/14/20 21:04 97 F 74 20 130/89 96 05/14/20 19:55 97.9 F 74 142/98 96 05/14/20 19:50 92 L 05/14/20 18:55 97.9 F 66 138/90 95 05/14/20 18:25 97.8 F 71 137/87 95 05/14/20 17:55 76 18 138/86 95 05/14/20 17:40 77 17 132/85 95 05/14/20 13:00 98.8 F 69 16 135/78 97 05/14/20 12:00 978.6 F 73 18 131/84 95 Pain Assessment - Last Documented Pain Intensity 6 Pain Scale Used 0-10 Pain Scale Intake and Output: Intake & Output 05/12/20 05/13/20 05/14/20 05/15/20 11:59 11:59 11:59 11:59 Intake Total 0 2425 Output Total 700 Balance 0 1725 Weight 84.9 kg 85 kg Lab Results: Lab Results-Last 24 Hours 05/14/20 05/14/20 05/15/20 Range/Units 05:40 08:00 05:10 WBC 9.9 (4.0-10.5) K/mm3 RBC 4.53 (4.1-5.6) M/mm3 Hgb 14.7 (12.5-18.0) gm/dl Hct 44.9 (42-50) % MCV 99.1 (78-100) fl MCH 32.5 H (26-32) pg MCHC 32.7 (32-36) g/dl RDW 13.6 (11.5-14.0) % Plt Count 256 (150-450) K/mm3 MPV 9.8 (7.5-11.0) fl Gran % 85.1 H (36.0-66.0) % Eos # (Auto) 0 (0-0.5) Absolute Lymphs (auto) 0.62 L (1.0-4.6) Absolute Monos (auto) 0.83 (0.0-1.3) Lymphocytes % 6.3 L (24.0-44.0) % Monocytes % 8.4 (0.0-12.0) % Eosinophils % 0.0 (0.00-5.0) % Basophils % 0.2 (0.0-0.4) % Absolute Granulocytes 8.44 H (1.4-6.9) Segmented Neutrophils 78 H (36.-66.) % Band Neutrophils 2 (0.0-2.0) % Lymphocytes (Manual) 10 L (24-44) % Monocytes (Manual) 9 (0.0-12.0) % Eosinophils (Manual) 1 (0.00-3.0) % Basophils # 0.02 (0-0.4) Toxic Granulation 1+ Platelet Estimate NORMAL (NORMAL) RBC Morphology NORMAL Sodium (137-145) mmol/L Potassium (3.5-5.1) mmol/L Chloride (98-107) mmol/L Carbon Dioxide (22-30) mmol/L Anion Gap (5-15) MEQ/L BUN (9-20) mg/dL Creatinine (0.66-1.25) mg/dL Estimated GFR ML/MIN Glucose (74-106) mg/dL Calcium (8.4-10.2) mg/dL Total Bilirubin (0.2-1.3) mg/dL Direct Bilirubin (0.0-0.4) mg/dL AST (17-59) U/L ALT (0-50) U/L Alkaline Phosphatase (38-126) U/L Troponin I < 0.012 (0.000-0.034) ng/mL Serum Total Protein (6.3-8.2) g/dL Albumin (3.5-5.0) g/dL Amylase (30-110) U/L Lipase (23-300) U/L // Range/Units 05:10 WBC (4.0-10.5) K/mm3 RBC (4.1-5.6) M/mm3 Hgb (12.5-18.0) gm/dl Hct (42-50) % MCV (78-100) fl MCH (26-32) pg MCHC (32-36) g/dl RDW (11.5-14.0) % Plt Count (150-450) K/mm3 MPV (7.5-11.0) fl Gran % (36.0-66.0) % Eos # (Auto) (0-0.5) Absolute Lymphs (auto) (1.0-4.6) Absolute Monos (auto) (0.0-1.3) Lymphocytes % (24.0-44.0) % Monocytes % (0.0-12.0) % Eosinophils % (0.00-5.0) % Basophils % (0.0-0.4) % Absolute Granulocytes (1.4-6.9) Segmented Neutrophils (36.-66.) % Band Neutrophils (0.0-2.0) % Lymphocytes (Manual) (24-44) % Monocytes (Manual) (0.0-12.0) % Eosinophils (Manual) (0.00-3.0) % Basophils # (0-0.4) Toxic Granulation Platelet Estimate (NORMAL) RBC Morphology Sodium 137 (137-145) mmol/L Potassium 4.2 (3.5-5.1) mmol/L Chloride 106 (98-107) mmol/L Carbon Dioxide 23 (22-30) mmol/L Anion Gap 12.8 (5-15) MEQ/L BUN 14 (9-20) mg/dL Creatinine 0.70 (0.66-1.25) mg/dL Estimated GFR > 60.0 ML/MIN Glucose 193 H (74-106) mg/dL Calcium 8.5 (8.4-10.2) mg/dL Total Bilirubin 0.60 (0.2-1.3) mg/dL Direct Bilirubin 0.3 (0.0-0.4) mg/dL AST 50 (17-59) U/L ALT 51 H (0-50) U/L Alkaline Phosphatase 77 (38-126) U/L Troponin I (0.000-0.034) ng/mL Serum Total Protein 5.9 L (6.3-8.2) g/dL Albumin 3.1 L (3.5-5.0) g/dL Amylase 58 (30-110) U/L Lipase 121 (23-300) U/L Radiology Exams: Radiology Procedures Category Date Time Status ABDOMEN AND PELVIS W CONTRAST [CT] Stat Exams 05/13/20 19:46 Completed CHEST WITH CONTRAST [CT] Stat Exams 05/13/20 21:06 Completed GALLBLADDER [US] Stat Exams 05/14/20 12:09 Completed Assessment/Plan (1) Acute pancreatitis Current Visit: Yes Status: Acute Assessment & Plan: labs look good today Code(s): K85.90 - ACUTE PANCREATITIS WITHOUT NECROSIS OR INFECTION, UNSP (2) Gallstone Current Visit: Yes Status: Acute Assessment & Plan: POD #1 s/p lap cholecystectomy Code(s): K80.20 - CALCULUS OF GALLBLADDER W/O CHOLECYSTITIS W/O OBSTRUCTION (3) COPD (chronic obstructive pulmonary disease) Current Visit: Yes Status: Acute
[2020-05-15] MEDS: PROTONIX 40 MG IV IV SCH (09:12)
[2020-05-15] MEDS: DUONEB 0.5-3 MG/3 ml Neb IH PRN (11:15)
--- NOTE | 2020-05-15 12:49 | OP ---
SURGERY DATE/TIME: 05/14/2020 1549 PREOPERATIVE DIAGNOSIS: History of acute pancreatitis. History of cholelithiasis, sludge, chronic cholecystitis, acute exacerbation of chronic cholecystitis. POSTOPERATIVE DIAGNOSIS: History of acute pancreatitis. History of cholelithiasis, sludge, chronic cholecystitis, acute exacerbation of chronic cholecystitis. PROCEDURE: Laparoscopic cholecystectomy. SURGEON: Dr. Akhil Pantoja. ANESTHESIA: General. ESTIMATED BLOOD LOSS: Minimal. INDICATIONS: As noted above. Risks and benefits explained in detail but not limited to and consent obtained. DESCRIPTION OF PROCEDURE AND FINDINGS: The patient was taken to the operating room. General anesthesia induced. Abdomen prepped and draped in the usual sterile fashion. After official time out and no disagreement with planned procedure, a transverse incision made at the supraumbilical area. Fascia grasped and pulled upward. Veress needle inserted and tested with saline. Pneumoperitoneum accomplished insufflating opening pressure of 0-15. A 5 mm bladeless port and camera inserted without difficulty followed by two - 5 mm right upper quadrant ports and 11 mm epigastric port. The gallbladder grasped. He had extensive omental adhesions up to it and these were slowly and carefully taken down off the liver and off the gallbladder. The gallbladder quite distended, chronically inflamed. Carefully dissecting posterior, lateral to anterior fashion. Slowly and carefully cystic duct and infundibular area slowly and carefully well skeletonized until the critical view obtained both anteriorly and posteriorly. Once this accomplished, cystic duct and cystic artery clipped x3 and divided in the usual fashion. The main cystic artery isolated, clipped x3 and divided in the usual fashion. Gallbladder slowly and carefully dissected free from its dense attachment to the liver bed, clipping additional oozing side branches off the cystic artery directly on the gallbladder wall as necessary. The gallbladder slowly and carefully dissected free this took quite some time but slowly and carefully accomplished. Just prior to releasing from final attachments to the anterior edge of the liver, the liver bed re-inspected. Clips noted to be in place cystic duct and cystic artery stumps. No signs of any active bleeding or bile leakage. It was felt there is no benefit from drain placement at this point. Gallbladder released from final attachments to anterior edge of the liver, placed in the provided sac, pulled up, decompressed of bile and pulled free and passed off. Copious amount of irrigation accomplished lateral to the liver and subhepatic space irrigating until clear. Liver bed re-inspected. Clips noted in place cystic duct and cystic artery stump clips. No signs of any active bleeding or bile leakage. It was felt there is no benefit from drain placement. Fascial defect 07/01 site closed with puncture closure device with #1 Vicryl. Pneumoperitoneum decompressed. The wound irrigated out. Skin incision closed with 4-0 Vicryl. Steri-Strips and sterile dressing applied. 0.25% Marcaine local injected along the skin incision fascial defect.
[2020-05-15] MEDS: Ambien 10 MG PO PRN (21:37)
[2020-05-16] MEDS: MORPHINE SULFATE 4 MG INJ IV PRN (05:09)
[2020-05-16 05:12] LABS: Absolute Neutrophil Ct (ANC) 8.85 (1.4-6.9); BASOPHIL % 0.3 % (0.0-0.4); Basophil (Absolute #) 0.03 (0-0.4); Eosinophil % 0.8 % (0.00-5.0); Eosinophil (Absolute #) 0.09 (0-0.5); Hematocrit 43.3 % (42-50); Lymphocyte (Absolute #) 1.78 (1.0-4.6); Lymphocytes % 15.4 % (24.0-44.0); Mean Cell Volume 99.8 fl (78-100); Mean Corpuscular Hemoglobin 32.3 pg (26-32); Mean Corpuscular Hgb Concent. 32.3 g/dl (32-36); Mean Platelet Volume 10.1 fl (7.5-11.0); Monocyte (Absolute #) 0.82 (0.0-1.3); Monocytes % 7.1 % (0.0-12.0); Neutrophil % 76.4 % (36.0-66.0); Platelet Count 276 K/mm3 (150-450); Red Blood Count 4.34 M/mm3 (4.1-5.6); Red Cell Distribution Width 13.4 % (11.5-14.0); White Blood Count 11.6 K/mm3 (4.0-10.5)
[2020-05-16] MEDS: DUONEB 0.5-3 MG/3 ml Neb IH PRN (05:17)
[2020-05-16 05:34] LABS: ALBUMIN 3.1 g/dL (3.5-5.0); ALKALINE PHOSPHATASE 69 U/L (38-126); AMYLASE 92 U/L (30-110); ANION GAP 16.7 MEQ/L (5-15); BLOOD UREA NITROGEN 19 mg/dL (9-20); CHLORIDE 103 mmol/L (98-107); Calcium 7.9 mg/dL (8.4-10.2); Carbon Dioxide 20 mmol/L (22-30); Creatinine 1 0.76 mg/dL (0.66-1.25); EST GLOMERULAR FILTRATION RATE > 60.0 ML/MIN; Glucose 150 mg/dL (74-106); LIPASE 212 U/L (23-300); Potassium 3.3 mmol/L (3.5-5.1); SGOT/AST 38 U/L (17-59); SGPT/ALT 53 U/L (0-50); SODIUM 136 mmol/L (137-145); Total Protein 6.1 g/dL (6.3-8.2)
[2020-05-16 07:26] VITALS: BP 128/69; PULSE 70; O2SAT 95
--- NOTE | 2020-05-16 08:01 | PCM.DS ---
Discharge Summary Date of Admission: 05/14/20 06:09 Admitting Physician: BRENDA MARC Consults: Consults on Case 05/14/20 07:55 Consult Surgery ROUTINE Primary Care Provider: BRENDA MARC Allergies Allergies penicillin G Allergy (Unknown, Verified 12/12/19 14:45) Hospital Summary - Hospital Course Hospital Course: patient was admitted with epigastric pain and nausea, recurrent after recent hospital stay with pancreatitis. gallbladder ultrasound was negative on first admission, on re admit ct showed gallbladder sludge and there was small gravel so had lap choley by Dr Gramajo, doing well postoperatively, tolerating po intake and pancreas enzymes are normal. - Vitals & Intake/Output Vital Signs: Vital Signs Temperature 98.3 F 05/16/20 07:25 Pulse Rate 70 05/16/20 07:25 Respiratory Rate 20 05/16/20 07:25 Blood Pressure 128/69 05/16/20 07:25 O2 Sat by Pulse Oximetry 95 05/16/20 07:25 Intake & Output: Intake & Output 05/13/20 05/14/20 05/15/20 05/16/20 11:59 11:59 11:59 11:59 Intake Total 0 2425 1900 Output Total 700 Balance 0 1725 1900 Weight 84.9 kg 85 kg - Lab Result Diagrams: 05/16/20 05:09 05/16/20 05:09 Lab Results-Last 24 Hrs: Lab Results-Last 24 Hours 05/16/20 05/16/20 Range/Units 05:09 05:09 WBC 11.6 H (4.0-10.5) K/mm3 RBC 4.34 (4.1-5.6) M/mm3 Hgb 14.0 (12.5-18.0) gm/dl Hct 43.3 (42-50) % MCV 99.8 (78-100) fl MCH 32.3 H (26-32) pg MCHC 32.3 (32-36) g/dl RDW 13.4 (11.5-14.0) % Plt Count 276 (150-450) K/mm3 MPV 10.1 (7.5-11.0) fl Gran % 76.4 H (36.0-66.0) % Eos # (Auto) 0.09 (0-0.5) Absolute Lymphs (auto) 1.78 (1.0-4.6) Absolute Monos (auto) 0.82 (0.0-1.3) Lymphocytes % 15.4 L (24.0-44.0) % Monocytes % 7.1 (0.0-12.0) % Eosinophils % 0.8 (0.00-5.0) % Basophils % 0.3 (0.0-0.4) % Absolute Granulocytes 8.85 H (1.4-6.9) Basophils # 0.03 (0-0.4) Sodium 136 L (137-145) mmol/L Potassium 3.3 L D (3.5-5.1) mmol/L Chloride 103 (98-107) mmol/L Carbon Dioxide 20 L (22-30) mmol/L Anion Gap 16.7 H (5-15) MEQ/L BUN 19 (9-20) mg/dL Creatinine 0.76 (0.66-1.25) mg/dL Estimated GFR > 60.0 ML/MIN Glucose 150 H (74-106) mg/dL Calcium 7.9 L (8.4-10.2) mg/dL Total Bilirubin 0.60 (0.2-1.3) mg/dL AST 38 (17-59) U/L ALT 53 H (0-50) U/L Alkaline Phosphatase 69 (38-126) U/L Serum Total Protein 6.1 L (6.3-8.2) g/dL Albumin 3.1 L (3.5-5.0) g/dL Amylase 92 (30-110) U/L Lipase 212 (23-300) U/L Micro Results-Entire Visit: Microbiology 05/13/20 20:25 Blood Culture - Preliminary Blood NO GROWTH TO DATE 05/13/20 20:25 Blood Culture - Preliminary Blood NO GROWTH TO DATE - Radiology Exams Ordered Rad Exams-Entire Visit: Radiology Procedures Category Date Time Status GALLBLADDER [US] Stat Exams 05/14/20 12:09 Completed - Procedures and Test Procedures and Tests throughout Hospitalization: Therapy Orders & Screens 05/14/20 03:25 Oxygen Nasal Cannula 2 lpm Comment: 05/14/20 06:50 Respiratory Therapy Assessment DAILY Comment: Diagnosis: acute pancreatitis; dyspnea; vomiting; hypokalemia. 05/15/20 08:48 RT Miscellaneous Order ROUTINE Comment: Physician Instructions: Reason For Exam: arrange for diagnostic sleep study after DC Diagnosis: acute pancreatitis; dyspnea; vomiting; hypokalemia. Discharge Exam General Appearance: no apparent distress, alert Respiratory Exam: normal breath sounds, lungs clear, No respiratory distress Cardiovascular Exam: regular rate/rhythm, normal heart sounds Gastrointestinal/Abdomen Exam: soft, normal bowel sounds, other (port sites clean, dry, intact), No tenderness Extremity Exam: normal inspection, normal range of motion Final Diagnosis/Problem List - Final Discharge Diagnosis/Problem (1) Acute pancreatitis Current Visit: Yes Status: Acute Code(s): K85.90 - ACUTE PANCREATITIS WITHOUT NECROSIS OR INFECTION, UNSP (2) Gallstone Current Visit: Yes Status: Acute Code(s): K80.20 - CALCULUS OF GALLBLADDER W/O CHOLECYSTITIS W/O OBSTRUCTION (3) COPD (chronic obstructive pulmonary disease) Current Visit: Yes Status: Acute - Discharge Disposition: Home, Self-Care Condition: Stable Prescriptions: New Docusate Sodium [Colace] 100 mg PO BID #30 capsule Continue Omeprazole 10 mg PO DAILY Zolpidem Tartrate [Ambien Cr] 10 mg PO HS Naproxen 500 mg [Naprosyn 500 MG] 500 mg PO BID Albuterol/Ipratropium 3ml Neb* [DUONEB 0.5-3 MG/3 ml Neb] 3 ml IH QIDRT #100 ampul.neb Hydrocodone/APAP 5-325 Tab^^^ [Ava 5-325 Tablet^^^] 1 tab PO Q6HPRN PRN #20 tablet MDD 6 PRN Reason: Pain Nebulizer/Compressor [Comp-Air Nebulizer System] 1 each TID Follow up with: BRENDA MARC MD [Primary Care Provider] - 1 Week STEVEN GRAMAJO [COURTESY STAFF] - 1 Week
[2020-05-16] MEDS: PROTONIX 40 MG IV IV SCH (08:16)
== END 2020-05-16 09:30 | disposition home or self-care (01) ==
LOC: ED 18:19 → MED SURG 05-14 06:09
PROVIDERS: ADMIT Family Medicine; ATTEND Family Medicine
DX: K85.90 Acute pancreatitis without necrosis or infection, unspecified (principal); K80.10 Calculus of gallbladder with chronic cholecystitis without obstruction; J44.9 Chronic obstructive pulmonary disease, unspecified; E87.6 Hypokalemia; Z79.899 Other long term (current) drug therapy
CPT/HCPCS: 36000; 36415; 47562; 71260; 74177; 76705; 80048; 80053; 81001; 82150; 82248; 82805; 83605; 83690; 83735; 83880; 84484; 85025; 85379; 85610; 85652; 85730; 86308; 87040; 87631; 87651; 93005; 93268; 94640; 94760; 96360; 96361; 96365; 96366; 96372; 96374; 96375; 96376; 99285; G0378; U0003; J1100; J1170; J1885; J2270; J2405; J2550; J2704; J3010; J3480; A9270-GY

== ENCOUNTER 2022-06-02 11:56 | Emergency (ER) | payer MEDICARE ==
--- NOTE | 2022-06-02 11:57 | ERPHSYRPT ---
- History of Present Illness Time Seen by Provider: 06/02/22 11:57 Source: patient Exam Limitations: no limitations Physician History: This is a 66-year-old white male who has a history of rib fractures in the past on both sides and fell in the yard 2 days ago while doing yard work. In the last couple of days his pain has not improved. He has not had fevers. He denies cough. He has no anterior chest pain. He is not short of breath. Occurred: days ago (2) Reason for Fall: tripped (Patient tripped over a large piece of bark from a tree), fell from standing pos Injuries/Pain Location: chest (Right lateral ribs) Loss of Consciousness: no loss of consciousness Quality: aching Severity of Pain-Max: moderate Severity of Pain-Current: moderate Modifying Factors: Improves With: movement, other (Deep breaths) Allergies/Adverse Reactions: penicillin G Allergy (Unknown, Verified 06/02/22 12:03) Home Medications: Omeprazole 10 mg PO DAILY 12/12/19 [History] Naproxen 500 mg [Naprosyn 500 MG] 500 mg PO BID 05/08/20 [History] Zolpidem Tartrate [Ambien Cr] 10 mg PO HS 05/08/20 [History] Nebulizer and Compressor [Comp-Air Nebulizer System] 1 each MC TID 05/14/20 [History] Hx Tetanus, Diphtheria Vaccination/Date Given: No Hx Influenza Vaccination/Date Given: No Hx Pneumococcal Vaccination/Date Given: No Travel Risk - International Travel Have you traveled outside of the country in past 3 weeks: No - Coronavirus Screening Are you exhibiting any of the following symptoms?: No Close contact with a COVID-19 positive Pt in past 14-21 Days: No - Review of Systems Constitutional: No Symptoms Eyes: No Symptoms Ears, Nose, & Throat: No Symptoms Respiratory: No Symptoms Cardiac: No Symptoms Abdominal/Gastrointestinal: No Symptoms Genitourinary Symptoms: No Symptoms Musculoskeletal: Fall, Injury (Right ribs laterally) Skin: No Symptoms Neurological: No Symptoms Psychological: No Symptoms Endocrine: No Symptoms Hematologic/Lymphatic: No Symptoms Immunological/Allergic: No Symptoms All Other Systems: Reviewed and Negative - Past Medical History Pertinent Past Medical History: Yes Neurological History: No Pertinent History ENT History: No Pertinent History Cardiac History: No Pertinent History Respiratory History: COPD Endocrine Medical History: No Pertinent History Musculoskeletal History: Arthritis GI Medical History: Diverticulitis, GERD, Pancreatitis History: No Pertinent History Psycho-Social History: No Pertinent History Male Reproductive Disorders: No Pertinent History Other Medical History: HX OF 3-4 COMPRESSION FX OF BACK. - Past Surgical History Past Surgical History: Yes Neuro Surgical History: No Pertinent History Cardiac: No Pertinent History Respiratory: No Pertinent History Gastrointestinal: Hernia Repair Genitourinary: No Pertinent History Musculoskeletal: No Pertinent History Male Surgical History: No Pertinent History - Social History Smoking Status: Current some day smoker How long have you smoked: 40 years Exposure to second hand smoke: Yes Alcohol Use: Chronic Drug Use: marijuana Patient Lives Alone: No Significant Family History: no pertinent family hx - Nursing Vital Signs Nursing Vital Signs: Initial Vital Signs Temperature 97.2 F 06/02/22 12:04 Pulse Rate 86 06/02/22 12:04 Respiratory Rate 18 06/02/22 12:04 Blood Pressure 130/78 06/02/22 12:04 O2 Sat by Pulse Oximetry 96 06/02/22 12:04 Pain Scale Pain Intensity 9 - Robinson Coma Score Best Eye Response (Mahnaz): (4) open spontaneously Best Verbal Response (Robinson): (5) oriented Best Motor Response (Mahnaz): (6) obeys commands Mahnaz Total: 15 - Physical Exam General Appearance: no apparent distress, alert, anxiety Head Injury: no evidence of injury Eye Exam: PERRL/EOMI, eyes nml inspection ENT Exam: airway nml, nml ext.inspection Neck Exam: supple, trachea midline, full range of motion, normal alignment Respiratory/Chest Exam: chest tenderness (Along lateral ribs on the right side), normal breath sounds, No respiratory distress, No ecchymosis, No crepitus Cardiovascular Exam: normal heart sounds, regular rate/rhythm Gastrointestinal Exam: soft, normal bowel sounds, No tenderness Rectal Exam: not done Back Exam: normal inspection, normal range of motion, No CVA tenderness, No vertebral tenderness Extremity Exam: normal inspection, normal range of motion, capillary refill <3 sec, pelvis stable Neurologic Exam: alert, oriented x 3, cooperative, guitar maker II-XII nml as tested, normal mood/affect, nml cerebellar function, nml station & gait, sensation nml Skin Exam: normal color, warm, dry SpO2 Interpretation: normal O2 Delivery: Room Air - Course Nursing assessment & vital signs reviewed: Yes Ordered Tests: Active Orders 24 hr Category Date Time Status RIBS UNILATERAL Stat Exams 06/02/22 12:38 Completed - Progress Progress: unchanged, pain not gone completely Progress Note: 06/02/22 13:18 X-ray of right ribs shows minimally displaced acute fractures of the distal, anterior lateral right sixth seventh and possibly fifth ribs. There is no pneumothorax present. There are multiple old healed rib fractures. Counseled pt/family regarding: diagnosis, need for follow-up, rad results - Departure Departure Disposition: Home Clinical Impression: Ribs, multiple fractures Condition: Stable Critical Care Time: No Referrals: BRENDA MARC MD [Primary Care Provider] - Follow up/PCP as directed Prescriptions: Oxycodone HCl/Acetaminophen [Percocet 5-325 mg Tablet] 1 each PO Q8H PRN PRN #8 tablet MDD 3 PRN Reason: Moderate To Severe Pain Orphenadrine Citrate 100 mg [Norflex 100 MG Tablet] 100 mg PO BID #10 tab
[2022-06-02 12:11] VITALS: BP 130/78
--- NOTE | 2022-06-02 13:15 | XRAY ---
Exam: 4 view right rib series from 06/02/2022. Comparison: 3 view right rib series from 02/02/2019. Indication: 66-year-old male fell; injury. Findings: 2 AP images and both oblique images of the right rib cage were obtained. I again see old healed fracture deformities of the mid posterior and posterior medial aspects of the right ninth rib. There appear to be definite acute fractures of the distal anterior lateral aspect of the right 6 and 7th ribs with minimal cortical step-off deformity. There is also a questionable nondisplaced fracture of the anterior lateral aspect of the right 5th rib. The right lung appears clear without pneumothorax or pleural effusion. I note some mild compression deformity of L1 which is unchanged from 02/02/2019 in retrospect. Surgical clips consistent with prior cholecystectomy are seen within the right upper quadrant. Impression: 1. Findings consistent with minimally displaced acute fractures of the distal anterior lateral right sixth and seventh ribs, and possibly the distal anterior lateral aspect of the right fifth rib. 2. Old healed fracture deformities of the posterior right ninth rib appear unchanged from 02/02/2019. 3. Other incidental findings, as above.
[2022-06-02 13:22] VITALS: PULSE 80; O2SAT 97
[2022-06-02] MEDS ORDERED: Norflex 100 MG Tablet PO ONE (13:22)
[2022-06-02] MEDS ORDERED: PERCOCET TABLET 5/325MG PO STA (13:22)
[2022-06-02] MEDS ORDERED: PERCOCET TABLET 5/325MG ONE (13:25)
== END 2022-06-02 13:33 | disposition home or self-care (01) ==
LOC: ED 11:56
DX: S22.41XA Multiple fractures of ribs, right side, initial encounter for closed fracture (principal); W01.0XXA Fall on same level from slipping, tripping and stumbling without subsequent striking against object, initial encounter; Y93.H9 Activity, other involving exterior property and land maintenance, building and construction; Y92.007 Garden or yard of unspecified non-institutional (private) residence as the place of occurrence of the external cause; R07.81 Pleurodynia; J44.9 Chronic obstructive pulmonary disease, unspecified; Z72.0 Tobacco use; Z79.899 Other long term (current) drug therapy; Z79.891 Long term (current) use of opiate analgesic
CPT/HCPCS: 71100; 99283; A9270-GY

== ENCOUNTER 2022-08-11 11:12 | Emergency (ER) | payer MEDICARE ==
[2022-08-11 11:21] VITALS: O2SAT 97
--- NOTE | 2022-08-11 11:38 | ERPHSYRPT ---
- History of Present Illness Source: patient Exam Limitations: no limitations Patient Subjective Stated Complaint: pt here for lower back pain that is chronic for him, he has not tried OTC meds, no injury Triage Nursing Assessment: pt alert, resp easy, walked in, able to undres, moans out in pain , Physician History: 66 yo wm w h/o chronic lumbar pain presents w worsening lumbar pain x 1 week. Used to be pain clinic pt but is currently not being seen in the clinic. Pt states that his pain is 9/10 and worse w movement. He denies dysuria/hematuria/incontinence of stool-urine/lower extremity numbness or paralysis. Pain does not radiate. Timing/Duration: other (1 week) Method of Injury: other (Chronic-no injury) Quality: sharp Back Pain Location: lumbar spine, paraspinous muscles Severity of Pain-Max: severe Severity of Pain-Current: severe Associated Symptoms: denies symptoms Previous symptoms: same symptoms as today Allergies/Adverse Reactions: penicillin G Allergy (Unknown, Verified 08/11/22 11:16) Home Medications: Omeprazole 10 mg PO DAILY 12/12/19 [History] Naproxen 500 mg [Naprosyn 500 MG] 500 mg PO BID 05/08/20 [History] Zolpidem Tartrate [Ambien Cr] 10 mg PO HS 05/08/20 [History] Nebulizer and Compressor [Comp-Air Nebulizer System] 1 each MC TID 05/14/20 [History] Diclofenac Sodium 50 mg [Voltaren 50 mg] 50 mg PO BID 08/11/22 [History] Hx Tetanus, Diphtheria Vaccination/Date Given: No Hx Influenza Vaccination/Date Given: No Hx Pneumococcal Vaccination/Date Given: No Immunizations Up to Date: Yes Travel Risk - International Travel Have you traveled outside of the country in past 3 weeks: No - Coronavirus Screening Are you exhibiting any of the following symptoms?: No - Vaccine Status Have you recieved a Covid-19 vaccination: No - Review of Systems Constitutional: No Symptoms Eyes: No Symptoms Ears, Nose, & Throat: No Symptoms Respiratory: No Symptoms Cardiac: No Symptoms Abdominal/Gastrointestinal: No Symptoms Genitourinary Symptoms: No Symptoms Skin: No Symptoms Neurological: No Symptoms Psychological: No Symptoms Endocrine: No Symptoms Hematologic/Lymphatic: No Symptoms Immunological/Allergic: No Symptoms - Past Medical History Pertinent Past Medical History: Yes Neurological History: No Pertinent History ENT History: No Pertinent History Cardiac History: No Pertinent History Respiratory History: COPD Endocrine Medical History: No Pertinent History Musculoskeletal History: Arthritis GI Medical History: Diverticulitis, GERD, Pancreatitis History: No Pertinent History Psycho-Social History: No Pertinent History Male Reproductive Disorders: No Pertinent History Other Medical History: HX OF 3-4 COMPRESSION FX OF BACK. - Past Surgical History Past Surgical History: Yes Neuro Surgical History: No Pertinent History Cardiac: No Pertinent History Respiratory: No Pertinent History Gastrointestinal: Hernia Repair Genitourinary: No Pertinent History Musculoskeletal: No Pertinent History Male Surgical History: No Pertinent History - Social History Smoking Status: Current some day smoker How long have you smoked: 40 years Exposure to second hand smoke: Yes Alcohol Use: Chronic Drug Use: marijuana Patient Lives Alone: No Significant Family History: no pertinent family hx - Nursing Vital Signs Nursing Vital Signs: Initial Vital Signs Temperature 97.7 F 08/11/22 11:17 Pulse Rate 79 08/11/22 11:17 Respiratory Rate 18 08/11/22 11:17 Blood Pressure 155/91 08/11/22 11:17 O2 Sat by Pulse Oximetry 97 08/11/22 11:17 Pain Scale Pain Intensity [Back] 9 Pain Intensity 5 Hypertensive - Physical Exam General Appearance: no apparent distress Eye Exam: PERRL/EOMI, eyes nml inspection Ears, Nose, Throat Exam: normal ENT inspection, TMs normal, pharynx normal, moist mucous membranes Neck Exam: normal inspection, non-tender, supple, full range of motion, No meningismus, No mass, No Brudzinski, No Kernig's, No carotid bruit Respiratory Exam: normal breath sounds, lungs clear, airway intact Cardiovascular Exam: regular rate/rhythm, normal heart sounds, normal peripheral pulses, capillary refill <2 sec, No murmur Gastrointestinal Exam: soft, normal bowel sounds, No tenderness Back Exam: normal inspection, vertebral tenderness (Mild mid L-spine TTP/No pain w stiff leg raises B/Reflexes symmetric) Extremity Exam: normal inspection, normal range of motion Peripheral Pulses: carotid (R): 2+, carotid (L): 2+ Neurologic Exam: alert, oriented x 3, cooperative, beet flumer II-XII nml as tested, normal mood/affect, nml cerebellar function, nml station & gait, sensation nml Skin Exam: normal color, warm, dry Lymphatic Exam: No adenopathy SpO2 Interpretation: normal SpO2: 97 O2 Delivery: Room Air - Course Nursing assessment & vital signs reviewed: Yes Ordered Tests: Medication Summary Discontinued Medications Generic Name Dose Route Start Last Admin Trade Name Freq PRN Reason Stop Dose Admin Ketorolac Tromethamine 30 mg 08/11/22 11:31 08/11/22 11:43 Ketorolac Tromethamine 30 Mg/Ml Inj IM 08/11/22 11:32 30 mg STAT ONE Administration Ketorolac Tromethamine Confirm 08/11/22 11:42 Ketorolac Tromethamine 30 Mg/Ml Inj Administered 08/11/22 11:43 Dose 30 mg .ROUTE .STK-MED ONE Orphenadrine Citrate 60 mg 08/11/22 11:31 08/11/22 11:43 Orphenadrine Citrate 60 Mg/2 Ml Vial IM 08/11/22 11:32 60 mg STAT ONE Administration Orphenadrine Citrate Confirm 08/11/22 11:42 Orphenadrine Citrate 60 Mg/2 Ml Vial Administered 08/11/22 11:43 Dose 60 mg .ROUTE .STK-MED ONE - Progress Progress Note: 08/11/22 11:38 30mg IM Toradol/60mg IM Norflex Counseled pt/family regarding: diagnosis, need for follow-up - Departure Departure Disposition: Home Clinical Impression: Chronic lumbar pain Condition: Stable Critical Care Time: No Referrals: BRENDA MARC MD [Primary Care Provider] - Follow up/PCP as directed Instructions: Low Back Pain (DC) Additional Instructions: Rest/Heat/massage Follow up with your family MD Return to ER as needed Prescriptions: Orphenadrine Citrate 100 mg [Norflex 100 MG Tablet] 100 mg PO BID PRN #10 tab PRN Reason: Pain Ketorolac Trometh 10 mg Tab [TORAdol 10 MG TABLET] 10 mg PO TID PRN PRN #10 tablet PRN Reason: Pain
[2022-08-11] MEDS ORDERED: TORAdol 30 mg Injection ONE (11:42)
[2022-08-11] MEDS ORDERED: Norflex 60 MG/2 ML ONE (11:42)
[2022-08-11] MEDS: TORAdol 30 mg Injection IM ONE (11:43)
[2022-08-11] MEDS: Norflex 60 MG/2 ML IM ONE (11:43)
[2022-08-11 12:08] VITALS: BP 124/82; PULSE 69
== END 2022-08-11 12:08 | disposition home or self-care (01) ==
LOC: ED 11:12
DX: G89.29 Other chronic pain (principal); M54.50 Low back pain, unspecified; Z72.0 Tobacco use; Z79.899 Other long term (current) drug therapy; Z28.310 Unvaccinated for COVID-19
CPT/HCPCS: 96372; 99283; J1885; J2360

== ENCOUNTER 2024-03-06 08:12 | Observation (INO) | payer MEDICARE, OTHER ==
[2024-03-06 08:28] LABS: Absolute Neutrophil Ct (ANC) 12.89 x10^3/uL (1.78-5.38); BASOPHIL % 0.3 % (0.2-1.2); Basophil (Absolute #) 0.04 x10^3/uL (0.01-0.08); Eosinophil % 0.1 % (0.8-7.0); Eosinophil (Absolute #) 0.01 x10^3/uL (0.04-0.54); Hematocrit 50.7 % (40.1-51.0); Hemoglobin 16.9 g/dL (13.7-17.5); IMMATURE GRAN # 0.12 x10^3u/L (0.001-0.031); IMMATURE GRAN % 0.8 % (0.001-0.429); Lymphocytes % 7.6 % (21.8-53.1); Mean Cell Volume 95.5 fL (79.0-92.2); Mean Corpuscular Hemoglobin 31.8 pg (25.7-32.2); Mean Corpuscular Hgb Concent. 33.3 g/dL (32.3-36.5); Mean Platelet Volume 9.7 fL (9.4-12.4); Monocyte (Absolute #) 1.46 x10^3/uL (0.30-0.82); Monocytes % 9.3 % (5.3-12.2); Neutrophil % 81.9 % (34.0-67.9); Platelet Count 164 x10^3/uL (163-337); Red Blood Count 5.31 x10^6/uL (4.63-6.08); Red Cell Distribution Width 13.4 % (11.6-14.4); White Blood Count 15.7 x10^3/uL (4.23-9.07)
[2024-03-06] MEDS ORDERED: DUONEB 0.5-3 MG/3 ml Neb IH ONE ×2 (08:30→14:04)
[2024-03-06] MEDS: SUBLIMAZE 100 MCG/2 ML IV ONE (08:30)
[2024-03-06] MEDS: DUONEB 0.5-3 MG/3 ml Neb IH ONE (08:35)
[2024-03-06] MEDS ORDERED: Narcan 0.4 MG/ML ONE (08:39)
--- NOTE | 2024-03-06 08:42 | ERPHSYRPT ---
- History of Present Illness Time Seen by Provider: 03/06/24 08:20 Source: patient Exam Limitations: no limitations Patient Subjective Stated Complaint: C/O SOB since Thursday that is worse this am. Patient indicates he was at [facility] Thursday having a heart attack and left there AMA. Triage Nursing Assessment: Patient arrived by ambulance. He is diaphoretic with labored breathing. Wheezing present. Patient is alert and oriented but speaking in 3-4 word phrases only due to SOB. Physician History: Patient arrives from home with complaint of chest pain and shortness of breath. EMS states that patient left [facility] on 2 days prior to arrival. At that point in time he apparently "had a heart attack and had CPR". He apparently left AMA after the event. States that he did not want to stay and felt people were not treating him correctly. NurseClaudette did call household assistant at [facility]. public message service supervisor reviewing the chart stated that patient did not have an MD. Instead patient was brought in unresponsive, did receive CPR. However after receiving Narcan and immediately woke up and requested to leave AMA shortly thereafter. Patient's girlfriend was contacted via phone. Per her, on Thursday patient was driving around with a friend and went suddenly unresponsive. Patient was then brought to [facility] where CPR was done and Narcan was given. The patient left AGAINST MEDICAL ADVICE after this, per the girlfriend. Today, patient complains of shortness of breath, wheezing, midsternal chest pain. Patient does have bruising over his midsternal chest where compressions were done. He is wheezing audibly. 89% on room air. Intermittently somnolent on exam as I ask him questions. It is my concern that he may need a dose of Narcan as he is having difficulty breathing, intermittently somnolent. Complains of no headache, lower extremity pain. Patient does have a left lower leg bandage in place where an IO with most likely drilled. Timing/Duration: today Allergies/Adverse Reactions: penicillin G Allergy (Unknown, Verified 03/06/24 08:16) Home Medications: Tamsulosin HCl 0.4 mg [Flomax 0.4 MG] 0.4 mg PO DAILY 03/06/24 [History] Hx Tetanus, Diphtheria Vaccination/Date Given: No Hx Influenza Vaccination/Date Given: No Hx Pneumococcal Vaccination/Date Given: No Immunizations Up to Date: No Travel Risk - International Travel Have you traveled outside of the country in past 3 weeks: No - Emerging Infectious Disease Are you exhibiting symptoms associated with any current EIDs: Yes Symptoms: Shortness of Breath - Past Medical History Pertinent Past Medical History: Yes Neurological History: No Pertinent History ENT History: No Pertinent History Cardiac History: Hypertension, Myocardial Infarction (MD) Respiratory History: COPD Endocrine Medical History: No Pertinent History Musculoskeletal History: Arthritis GI Medical History: Diverticulitis, GERD, Pancreatitis History: No Pertinent History Psycho-Social History: No Pertinent History Male Reproductive Disorders: No Pertinent History Other Medical History: PSH: Denies previous surgeries (hernia repair at age 13) - Past Surgical History Past Surgical History: Yes Neuro Surgical History: No Pertinent History Cardiac: No Pertinent History Respiratory: No Pertinent History Gastrointestinal: Hernia Repair Genitourinary: No Pertinent History Musculoskeletal: No Pertinent History Male Surgical History: No Pertinent History Significant Family History: no pertinent family hx - Social History Smoking Status: Current some day smoker How long have you smoked: 40 years Exposure to second hand smoke: Yes Alcohol Use: Chronic Drug Use: marijuana Patient Lives Alone: No - Social Determinants of Health Will the patient participate in the screening: Declined to provide - Nursing Vital Signs Nursing Vital Signs: Initial Vital Signs Respiratory Rate 17 03/06/24 08:12 O2 Sat by Pulse Oximetry 94 L 03/06/24 08:12 Pain Scale Pain Intensity 8 - Physical Exam SpO2 Interpretation: borderline oxygenation SpO2: 94 Comments: 03/06/24 08:40 Review of Systems Constitutional: Negative for fever. HENT: Negative for congestion. Respiratory: Shortness of breath Cardiovascular: Chest pain Gastrointestinal: Negative for abdominal pain. Genitourinary: Negative for dysuria. Musculoskeletal: Negative for back pain. Skin: Negative for rash. Neurological: Negative for headaches. Psychiatric/Behavioral: Negative for behavioral problems. All other systems reviewed and are negative. Physical Exam Vitals signs and nursing note reviewed. Constitutional: Appearance: Patient is well-developed. Intermittent somnolent HENT: Head: Normocephalic and atraumatic. Eyes: Conjunctiva/sclera: Conjunctivae normal. Neck: Musculoskeletal: Normal range of motion. Trachea: No tracheal deviation. Cardiovascular: Rate and Rhythm: Normal rate. Diaphoretic Pulmonary: Effort: Wheezing, tachypnea Abdominal: Palpations: Abdomen is soft. Musculoskeletal: General: No deformity. Skin: General: Skin is warm and dry. Neurological/ Psychiatric: Mental Status: Mental status, behavior, interaction with environment is appropriate for patient's age and condition - Course Nursing assessment & vital signs reviewed: Yes EKG Interpreted by Me: Sinus Rhythm (Sinus rhythm, rate of 80, IA interval 168 QRS 89 QTc 352, no STEMI no ST changes, no T wave in version no signs of ischemic changes) Ordered Tests: Active Orders 24 hr Category Date Time Status Admit as Inpatient ROUTINE Care 03/06/24 11:25 Active Call Admit Doctor for Orders ON ADMISSION Care 03/06/24 11:25 Active Double End Sewer STAT Care 03/06/24 08:21 Active Code Status Order ROUTINE Care 03/06/24 11:25 Active EKG-ER Only STAT Care 03/06/24 08:20 Active IV Insertion STAT Care 03/06/24 08:20 Active Oxygen-ED Only Nasal Cannula 2 lpm Care 03/06/24 09:27 Active Telemetry q6h Care 03/06/24 11:26 Active Heart-Healthy Diet Diet 03/07/24 Breakfast Active CHEST 1 VIEW (PORTABLE) Stat Exams 03/06/24 08:21 Completed CHEST WITH CONTRAST [CT] Stat Exams 03/06/24 09:15 Completed CBC W DIFF Stat Lab 03/06/24 08:15 Completed CK-Creatinine Phosphokinase Stat Lab 03/06/24 08:15 Completed CMP Stat Lab 03/06/24 08:15 Completed LIPASE Stat Lab 03/06/24 08:15 Completed NT PRO BNPII Stat Lab 03/06/24 08:15 Completed PROCALCITONIN Stat Lab 03/06/24 09:30 Completed TROPONIN Q4H Lab 03/06/24 08:15 Completed TROPONIN Q4H Lab 03/06/24 12:30 Ordered TROPONIN Q4H Lab 03/06/24 16:30 Ordered UA W/RFX UR CULTURE Stat Lab 03/06/24 11:07 Completed Urine Triage Profile Stat Lab 03/06/24 11:07 Received Pulse Oximetry CONTINUOUS RT 03/06/24 11:26 Active Respiratory Therapy Assessment DAILY RT 03/06/24 08:37 Active Transfer Order Routine Transfer 03/06/24 Ordered Medication Summary Discontinued Medications Generic Name Dose Route Start Last Admin Trade Name Mima PRN Reason Stop Dose Admin Albuterol/Ipratropium Confirm 03/06/24 08:30 Ipratropium/Albuterol Sulfate 3 Ml Ampul.Neb Administered 03/06/24 08:31 Dose 3 ml IH .STK-MED ONE Albuterol/Ipratropium 3 ml 03/06/24 08:36 03/06/24 08:35 Ipratropium/Albuterol Sulfate 3 Ml Ampul.Neb IH 03/06/24 08:37 3 ml STAT ONE Administration Dexamethasone Sodium Phosphate 10 mg 03/06/24 09:16 03/06/24 09:22 Dexamethasone Sod Phosphate 10 Mg/Ml IV 03/06/24 09:17 10 mg STAT ONE Administration Dexamethasone Sodium Phosphate Confirm 03/06/24 09:21 Dexamethasone Sod Phosphate 10 Mg/Ml Administered 03/06/24 09:22 Dose 10 mg .ROUTE .STK-MED ONE Fentanyl Citrate 50 mcg 03/06/24 08:22 03/06/24 08:30 Fentanyl Citrate 100 Mcg/2 Ml* Vial IV 03/06/24 08:23 Not Given STAT ONE Sodium Chloride 1,000 mls @ 999 mls/hr 03/06/24 09:16 03/06/24 10:27 Sodium Chloride 0.9% 1000 Ml IV 03/06/24 10:16 Infused .Q1H1M STA Infusion Sodium Chloride Confirm 03/06/24 09:21 Sodium Chloride 0.9% 1000 Ml Administered 03/06/24 09:22 Dose 1,000 mls @ ud .ROUTE .STK-MED ONE Ceftriaxone Sodium 1 gm in 100 mls @ 200 mls/hr 03/06/24 10:13 03/06/24 10:46 Rocephin 1 Gm / 100 Ml Nacl IV 03/06/24 10:42 Infused STAT ONE Infusion Azithromycin 500 mg in 250 mls @ 250 mls/hr 03/06/24 10:13 03/06/24 11:21 Zithromax 500 Mg/ 250 Ml Nacl Premix IV 03/06/24 11:12 Infused STAT STA Infusion Ceftriaxone Sodium Confirm 03/06/24 10:16 Rocephin 1 Gm / 100 Ml Nacl Administered 03/06/24 10:17 Dose 1 gm in 100 mls @ ud IV .STK-MED ONE Azithromycin Confirm 03/06/24 10:20 Zithromax 500 Mg/ 250 Ml Nacl Premix Administered 03/06/24 10:21 Dose 500 mg in 250 mls @ ud IV .STK-MED ONE Naloxone HCl 0.4 mg 03/06/24 08:32 03/06/24 08:43 Naloxone Hcl 0.4 Mg/Ml Ml IV 03/06/24 08:33 0.4 mg STAT ONE Administration Naloxone HCl Confirm 03/06/24 08:39 Naloxone Hcl 0.4 Mg/Ml Ml Administered 03/06/24 08:40 Dose 0.4 mg .ROUTE .STK-MED ONE Lab/Rad Data: Laboratory Result Diagrams 03/06/24 08:15 03/06/24 08:15 Laboratory Results 03/06/24 03/06/24 03/06/24 Range/Units 11:07 09:30 08:15 WBC (4.23-9.07) x10^3/uL RBC (4.63-6.08) x10^6/uL Hgb (13.7-17.5) g/dL Hct (40.1-51.0) % MCV (79.0-92.2) fL MCH (25.7-32.2) pg MCHC (32.3-36.5) g/dL RDW (11.6-14.4) % Plt Count (163-337) x10^3/uL MPV (9.4-12.4) fL Gran % (34.0-67.9) % Immature Gran % (Auto) (0.001-0.429) % Nucleat RBC Rel Count (0.00-0.2) % Eos # (Auto) (0.04-0.54) x10^3/uL Immature Gran # (Auto) (0.001-0.031) x10^3u/L Absolute Lymphs (auto) (1.32-3.57) x10^3/uL Absolute Monos (auto) (0.30-0.82) x10^3/uL Absolute Nucleated RBC (0.00-0.012) x10^3u/L Lymphocytes % (21.8-53.1) % Monocytes % (5.3-12.2) % Eosinophils % (0.8-7.0) % Basophils % (0.2-1.2) % Absolute Granulocytes (1.78-5.38) x10^3/uL Basophils # (0.01-0.08) x10^3/uL Sodium (135-145) mmol/L Potassium (3.5-5.1) mmol/L Chloride (98-107) mmol/L Carbon Dioxide (22-30) mmol/L Anion Gap (5-15) MEQ/L BUN (9-20) mg/dL Creatinine (0.66-1.25) mg/dL Estimated GFR ML/MIN Glucose (74-106) mg/dL Calcium (8.4-10.2) mg/dL Total Bilirubin (0.2-1.3) mg/dL AST (17-59) U/L ALT (0-50) U/L Alkaline Phosphatase (38-126) U/L Creatine Kinase (55-170) U/L Troponin I < 0.012 (0.000-0.033) ng/mL NT-Pro-B Natriuret Pep 142 (<300) pg/mL Serum Total Protein (6.3-8.2) g/dL Albumin (3.5-5.0) g/dL Lipase (23-300) U/L Procalcitonin 0.827 H (0.030-0.080) ng/mL Urine Color Yellow (Yellow) Urine Appearance Clear (Clear) Urine pH 6.0 (4.6-8.0) Ur Specific [place] >=1.030 A (1.005-1.030) Urine Protein Negative (Negative) Urine Glucose (UA) Negative (Negative) mg/dL Urine Ketones 15 A (Negative) Urine Blood Negative (Negative) Urine Nitrite Negative (Negative) Urine Bilirubin Negative (Negative) Urine Urobilinogen 1.0 A (0.2) mg/dL Ur Leukocyte Esterase Negative (Negative) U Hyaline Cast (Auto) NONE SEEN (0-2) /LPF Urine Microscopic RBC 0-2 (0-5) /HPF Urine Microscopic WBC 0-2 (0-5) /HPF Ur Epithelial Cells None Seen (None Seen) /HPF Urine Bacteria None Seen (None Seen) /HPF Urine Culture Reflexed NO (NO) 03/06/24 03/06/24 Range/Units 08:15 08:15 WBC 15.7 H (4.23-9.07) x10^3/uL RBC 5.31 (4.63-6.08) x10^6/uL Hgb 16.9 (13.7-17.5) g/dL Hct 50.7 (40.1-51.0) % MCV 95.5 H (79.0-92.2) fL MCH 31.8 (25.7-32.2) pg MCHC 33.3 (32.3-36.5) g/dL RDW 13.4 (11.6-14.4) % Plt Count 164 (163-337) x10^3/uL MPV 9.7 (9.4-12.4) fL Gran % 81.9 H (34.0-67.9) % Immature Gran % (Auto) 0.8 H (0.001-0.429) % Nucleat RBC Rel Count 0.0 (0.00-0.2) % Eos # (Auto) 0.01 L (0.04-0.54) x10^3/uL Immature Gran # (Auto) 0.12 H (0.001-0.031) x10^3u/L Absolute Lymphs (auto) 1.20 L (1.32-3.57) x10^3/uL Absolute Monos (auto) 1.46 H (0.30-0.82) x10^3/uL Absolute Nucleated RBC 0.00 (0.00-0.012) x10^3u/L Lymphocytes % 7.6 L (21.8-53.1) % Monocytes % 9.3 (5.3-12.2) % Eosinophils % 0.1 L (0.8-7.0) % Basophils % 0.3 (0.2-1.2) % Absolute Granulocytes 12.89 H (1.78-5.38) x10^3/uL Basophils # 0.04 (0.01-0.08) x10^3/uL Sodium 134 L (135-145) mmol/L Potassium 4.2 (3.5-5.1) mmol/L Chloride 99 (98-107) mmol/L Carbon Dioxide 28 (22-30) mmol/L Anion Gap 11.6 (5-15) MEQ/L BUN 20 (9-20) mg/dL Creatinine 1.20 (0.66-1.25) mg/dL Estimated GFR 66.7 ML/MIN Glucose 106 (74-106) mg/dL Calcium 9.3 (8.4-10.2) mg/dL Total Bilirubin 2.30 H (0.2-1.3) mg/dL AST 44 (17-59) U/L ALT 42 (0-50) U/L Alkaline Phosphatase 82 (38-126) U/L Creatine Kinase 277 H (55-170) U/L Troponin I (0.000-0.033) ng/mL NT-Pro-B Natriuret Pep (<300) pg/mL Serum Total Protein 7.5 (6.3-8.2) g/dL Albumin 4.2 (3.5-5.0) g/dL Lipase 45 (23-300) U/L Procalcitonin (0.030-0.080) ng/mL Urine Color (Yellow) Urine Appearance (Clear) Urine pH (4.6-8.0) Ur Specific [place] (1.005-1.030) Urine Protein (Negative) Urine Glucose (UA) (Negative) mg/dL Urine Ketones (Negative) Urine Blood (Negative) Urine Nitrite (Negative) Urine Bilirubin (Negative) Urine Urobilinogen (0.2) mg/dL Ur Leukocyte Esterase (Negative) U Hyaline Cast (Auto) (0-2) /LPF Urine Microscopic RBC (0-5) /HPF Urine Microscopic WBC (0-5) /HPF Ur Epithelial Cells (None Seen) /HPF Urine Bacteria (None Seen) /HPF Urine Culture Reflexed (NO) - Progress Progress: improved Progress Note: 03/06/24 08:48 Differential diagnosis includes: PNA, STEMI, NSTEMI, other infection, musculoskeletal pain, pneumothorax - We'll obtain basic labs, fluids, EKG, troponin, chest x-ray - EKG shows no ST changes - my read - O2 saturations consistently greater than 95% on 2 L of oxygen - CXR shows pneumonia my read Will give a breathing treatment, 1 dose of Narcan given the intermittent somnolence, continue close monitoring, troponins, 03/06/24 11:55 We did obtain a CTA looking for any pneumonia, subtle pneumothorax, rib fr actures other injuries from the CPR that occurred on 2 days prior to arrival. CTA did not show any pulmonary embolism or fractures. Patient did have aspiration pneumonia most likely on CT scan. Patient also had several suspicious pulmonary nodules that need a CT follow-up. I did discuss all this with the patient. Given that patient is hypoxic, leukocytosis, elevated procalcitonin, I do believe patient has pneumonia. He will need to be admitted to the hospital. Discussed over the phone with on-call physician, Dr. Harjinder Richard. He did accept the patient for admission to the hospital. ED critical care statement As staff physician, I have provided critical care. Time: 45 mins Criteria for critical illness: Acute hypoxic respiratory failure, pneumonia causing hypoxia, elevated procalcitonin, severe shortness of breath with increased working of breathing Treatment and management provided include: Coordination of management with ETC care team, consultants, and inpatient care team. [id number] assessment of condition and response to therapy. Review and interpretation of emergent diagnostic testing. Medical chart review and completion. Direction and immediate supervision of the following therapy: Critical care was time spent personally by me on the following activities: blood draw for specimens, development of treatment plan with patient or surrogate, discussions with consultants, discussions with primary provider, interpretation of cardiac output measurements, evaluation of patient's response to treatment, examination of patient, obtaining history from patient or surrogate, ordering and performing treatments and interventions, ordering and review of laboratory studies, ordering and review of radiographic studies, pulse oximetry, re-evaluation of patient's condition and review of old charts. This time was independent of all procedures performed. Ricky Kaur Counseled pt/family regarding: lab results, diagnosis, need for follow-up, rad results - Departure Departure Disposition: In-patient Admission Clinical Impression: Acute hypoxic respiratory failure, Aspiration pneumonia, Elevated procalcitonin, Pulmonary nodules Condition: Stable Critical Care Time: Yes Critical Care Time(excluding separately billable procedures): Critical 30-74 mins Referrals: BRENDA MARC MD [Primary Care Provider] - Follow up/PCP as directed
[2024-03-06] MEDS: Narcan 0.4 MG/ML IV ONE (08:43)
[2024-03-06 09:04] LABS: ALBUMIN 4.2 g/dL (3.5-5.0); ANION GAP 11.6 MEQ/L (5-15); BILIRUBIN,TOTAL 2.3 mg/dL (0.2-1.3); Calcium 9.3 mg/dL (8.4-10.2); Creatinine 1 1.2 mg/dL (0.66-1.25); EST GLOMERULAR FILTRATION RATE 66.7 ML/MIN; Potassium 4.2 mmol/L (3.5-5.1); Total Protein 7.5 g/dL (6.3-8.2)
[2024-03-06 09:15] LABS: NT PRO BNPII 142 pg/mL (<300); TROPONIN < 0.012 ng/mL (0.000-0.033)
[2024-03-06] MEDS ORDERED: DECADRON 10MG INJ. ONE (09:21)
[2024-03-06] MEDS ORDERED: Sodium Chloride 0.9% 1000 ML 1,000 ML ONE (09:21)
[2024-03-06] MEDS: DECADRON 10MG INJ. IV ONE (09:22)
[2024-03-06] MEDS: Sodium Chloride 0.9% 1000 ML 1,000 ML IV STA (09:23)
--- NOTE | 2024-03-06 09:40 | XRAY ---
CLINICAL HISTORY: chest pain COMPARISON: None. TECHNIQUE: X-rays of the chest, AP portable view. FINDINGS: No definite consolidation noted in both lung casillas. Prominent bilateral perihilar bronchovascular markings, could be attributable to congestion. The average size of the cardiac shadow. Blunted left costophrenic angle, could be attributable to minimal effusion or pleural thickening. Linear opacities seen in the left lower lung zone, could be linear atelecatic bands. Clear right costophrenic angle. No acute osseous abnormality. IMPRESSION: 1. Prominent bilateral perihilar bronchovascular markings, could be attributable to congestion, bronchitis or low lung volumes. 2. Linear opacities seen in the left lower lung zone, could represent linear atelecatic bands, However clinical and lab correlation is advised to rule out mild pulmonary infection . 3. Blunted left costophrenic angle, could be attributable to minimal effusion or pleural thickening. Electronically Signed by: Reese Medeiros MD. (03/06/2024 09:34:49 EDT)
[2024-03-06] MEDS ORDERED: ROCEPHIN 1 GM / 100 ML NaCl 1 GM/100 ML IVPB IV ONE (10:16)
[2024-03-06] MEDS: ROCEPHIN 1 GM / 100 ML NaCl 1 GM/100 ML IVPB IV ONE (10:16)
[2024-03-06] MEDS ORDERED: Zithromax 500 MG/ 250 ML NaCl Premix 500 MG/250 ML IVPB IV ONE (10:20)
[2024-03-06] MEDS: Zithromax 500 MG/ 250 ML NaCl Premix 500 MG/250 ML IVPB IV STA (10:21)
--- NOTE | 2024-03-06 11:15 | XRAY ---
CLINICAL HISTORY: Pulmonary embolus COMPARISON: Prior chest x-ray 03/06/2024 TECHNIQUE: Axial CT images of the chest were acquired with intravenous contrast administration. Coronal and sagittal reconstructions were obtained. One of the following dose reduction techniques were utilized for this exam: Automated exposure control, adjustment of the mA and/or kV according to patient size, use of iterative reconstruction FINDINGS: No evidence of a filling defect was seen in either the pulmonary trunk or its branches to suggest acute pulmonary embolism. Multiple nodules are seen in both lower lung lobes, one of these on the right side measures 1.0cm. These appear suspicious. A few diffusely calcified nodules were seen in both lungs, one of them right lower lobe measures 1.0 cm. These likely represent benign/granuloma. Few ground glass nodules are seen in the left upper lobe, one of these measures 4.0mm. Dependent densities are seen in both lung bases. These likely represent infective etiology/possibility of aspiration. Fibrocystic changes are seen in the left lower lobe. Mildly elevated dome of left hemidiaphragm. Few atelectatic bands were seen in the left lower lobe. No free or encysted pleural effusion. Heart size is normal, and there is no pericardial effusion. A few tiny mediastinal lymph nodes were seen. There is no definite mass lesion in the chest wall. The scanned upper abdomen is unremarkable. Thoracic spine degenerative changes with osteophytes. Anterior wedging of a few thoracolumbar vertebrae was seen. Coronary arteries, thoracic aortic, and scanned abdominal aortic intimal atherosclerotic calcifications. IMPRESSION: 1. No acute pulmonary embolism. 2. Multiple nodules are seen in both lower lung lobes, one of these on the right side measures 1.0cm. These appear suspicious and sinister pathology can not be excluded, consider CT at 3-6 months, then CT at 18-24 months regarding Fleischner Society pulmonary nodule recommendations. 3. A few diffusely calcified nodules were seen in both lungs, one of them right lower lobe measures 1.0 cm. These likely represent benign/granuloma. 4. A few ground glass nodules were seen in the left upper lobe, one of these measures 4.0mm. Dependent densities are seen in both lung bases. These likely represent infective etiology/possibility of aspiration. [facility] ER was called at [phone] at 10:09 AM BARGE LO[employer], 03/05/2024 and results were verbally communicated to Dr Ricky Kaur. Electronically Signed by: Reese Medeiros MD. (03/06/2024 11:12:02 EDT)
[2024-03-06 11:37] LABS: Appearance Clear (Clear); Bacteria None Seen /HPF (None Seen); Bilirubin Negative (Negative); Blood Negative (Negative); Epithelial Cells None Seen /HPF (None Seen); Glucose, Urine Negative (Negative); Hyaline Casts NONE SEEN /LPF (0-2); Ketones 15 (Negative); Leukocyte Esterase Negative (Negative); Nitrite Negative (Negative); Protein,Urine Dip Negative (Negative); RBC 0-2 /HPF (0-5); Specific Gravity >=1.030 (1.005-1.030); WBC 0-2 /HPF (0-5)
[2024-03-06 11:38] LABS: ADD URINE CULTURE? NO (NO)
[2024-03-06 12:22] LABS: Barbiturate,Urine NEGATIVE (NEGATIVE); Benzodiazepine,Urine NEGATIVE (NEGATIVE); Cocaine,Urine NEGATIVE (NEGATIVE); Methadone,Urine NEGATIVE (NEGATIVE); Opiate,Urine NEGATIVE (NEGATIVE); PCP,Urine NEGATIVE (NEGATIVE); THC,Urine NEGATIVE (NEGATIVE)
--- NOTE | 2024-03-06 12:31 | PCM.HP ---
History of Present Illness - Chief Complaint Chief Complaint: Acute hypoxic respiratory failure History of Present Illness: is a 68 year old male with a pmhx of COPD (RA Baseline) and HTN (does not take home meds) who presented to ED with complaints of progressive shortness of breath of the past 2 days. Patient reports that he was at work yesterday and became short of breath and dizzy and the shortness of breath has progressed overnight. Of note EMS states that patient left [facility] on 2 days prior to arrival. At that point in time he apparently "had a heart attack and had CPR". He apparently left AMA after the event. States that he did not want to stay and felt people were not treating him correctly. Nurse, Claudette did call bottle house cleaners supervisor at [facility]. toy assembly supervisor reviewing the chart stated that patient did not have an IN. Instead patient was brought in unresponsive, did receive CPR. However after receiving Narcan and immediately woke up and requested to leave AMA shortly thereafter. Patient very lethargic during interview and poor historian. He does tell me that he is a current everyday smoker of 1PPD for > 50 years. Patient is very sore from CPR he received and is requesting pain medication. In ED, vitals stable. EKG NS with no ST elevations/ deviations. CT negative for PE - demonstrates a few ground glass nodules were seen in the left upper lobe, one of these measures 4.0mm. Dependent densities are seen in both lung bases consistent with aspiration pneumonia. Of note, multiple nodules noted in both lower lung lobes which will require OP follow up. Lab findings remarkable for leukocytosis with WBC at 15.7, procal at 0.827, Tbili at 2.30, mild hyponatremia at 134, and alk phos at 277. Trops x 1 unremarkale. UDS negative with the exception of amphetamines which is still pending. Pt received ceftriaxone in ED. He does have an allergy to Penicillin, so plan admission for aspiration pneumonia with IV clindamycin/steroids/nebs. - Review of Systems Constitutional: Lethargy, Weakness Eyes: No Symptoms Ears, Nose, & Throat: No Symptoms Respiratory: Cough, Short Of Breath Cardiac: Chest Pain (from CPR 2 days ago) Abdominal/Gastrointestinal: No Symptoms Genitourinary Symptoms: No Symptoms Musculoskeletal: No Symptoms Skin: No Symptoms Neurological: No Symptoms Psychological: No Symptoms Endocrine: No Symptoms Hematologic/Lymphatic: No Symptoms Immunological/Allergic: No Symptoms Medications & Allergies Home Medications: Home Medication List Tamsulosin HCl 0.4 mg [Flomax 0.4 MG] 0.4 mg PO DAILY 03/06/24 [History Confirmed 03/06/24] Allergies/Adverse Reactions: Allergies Allergy/AdvReac Type Severity Reaction Status Date / Time penicillin G Allergy Unknown Verified 03/06/24 08:16 - Past Medical History Past Medical History: Yes Neurological History: No Pertinent History ENT History: No Pertinent History Cardiac History: Hypertension, Myocardial Infarction (IN) Respiratory History: COPD Endocrine Medical History: No Pertinent History Musculoskelatal History: Arthritis GI Medical History: Diverticulitis, GERD, Pancreatitis History: No Pertinent History Pyscho-Social History: No Pertinent History Male Reproductive Disorders: No Pertinent History Comment: PSH: Denies previous surgeries (hernia repair at age 13) - Past Surgical History Past Surgical History: Yes Neuro Surgical History: No Pertinent History Cardiac History: No Pertinent History Respiratory Surgery: No Pertinent History GI Surgical History: Hernia Repair Genitourinary Surgical Hx: No Pertinent History Musculskeletal Surgical Hx: No Pertinent History Male Surgical History: No Pertinent History Significant Family History: no pertinent family hx - Social History Smoking Status: Current some day smoker How long have you smoked: 40 years Exposure to second hand smoke: Yes Alcohol: None Drug Use: marijuana - Social Determinants of Health Will the patient participate in the screening: Declined to provide - Physical Exam Vital Signs: Vital Signs - 24 hr Temp Pulse Resp BP Pulse Ox 03/06/24 12:00 76 18 122/78 99 03/06/24 11:57 94 L 03/06/24 11:45 78 24 123/77 96 03/06/24 11:30 79 20 144/91 96 03/06/24 11:18 76 23 146/100 97 03/06/24 11:00 126/84 03/06/24 10:45 85 20 124/84 98 03/06/24 10:30 86 21 130/82 98 03/06/24 10:15 97.8 F 80 20 155/87 99 03/06/24 10:02 83 24 138/81 92 L 03/06/24 10:01 91 L 03/06/24 09:30 145/89 03/06/24 09:15 86 24 126/95 96 03/06/24 09:01 90 26 H 144/106 03/06/24 08:45 83 28 H 164/101 03/06/24 08:41 84 27 H 157/91 98 03/06/24 08:40 99 03/06/24 08:37 90 24 92 L 03/06/24 08:33 82 24 03/06/24 08:14 91 H 17 145/85 94 L 03/06/24 08:12 17 94 L General Appearance: no apparent distress, lethargy Neurologic Exam: alert, oriented x 3 Eye Exam: PERRL/EOMI Ears, Nose, Throat Exam: normal ENT inspection Neck Exam: normal inspection Respiratory Exam: crackles/rales, wheezing Cardiovascular Exam: regular rate/rhythm, normal heart sounds Gastrointestinal/Abdomen Exam: soft, normal bowel sounds Male Genitalia Exam: normal genitalia Rectal Exam: deferred Back Exam: normal inspection Extremity Exam: normal inspection Skin Exam: normal color Results - Labs Lab/Micro Results: Lab Results-Last 24 Hours 03/06/24 03/06/24 03/06/24 Range/Units 08:15 08:15 08:15 WBC 15.7 H (4.23-9.07) x10^3/uL RBC 5.31 (4.63-6.08) x10^6/uL Hgb 16.9 (13.7-17.5) g/dL Hct 50.7 (40.1-51.0) % MCV 95.5 H (79.0-92.2) fL MCH 31.8 (25.7-32.2) pg MCHC 33.3 (32.3-36.5) g/dL RDW 13.4 (11.6-14.4) % Plt Count 164 (163-337) x10^3/uL MPV 9.7 (9.4-12.4) fL Gran % 81.9 H (34.0-67.9) % Immature Gran % (Auto) 0.8 H (0.001-0.429) % Nucleat RBC Rel Count 0.0 (0.00-0.2) % Eos # (Auto) 0.01 L (0.04-0.54) x10^3/uL Immature Gran # (Auto) 0.12 H (0.001-0.031) x10^3u/L Absolute Lymphs (auto) 1.20 L (1.32-3.57) x10^3/uL Absolute Monos (auto) 1.46 H (0.30-0.82) x10^3/uL Absolute Nucleated RBC 0.00 (0.00-0.012) x10^3u/L Lymphocytes % 7.6 L (21.8-53.1) % Monocytes % 9.3 (5.3-12.2) % Eosinophils % 0.1 L (0.8-7.0) % Basophils % 0.3 (0.2-1.2) % Absolute Granulocytes 12.89 H (1.78-5.38) x10^3/uL Basophils # 0.04 (0.01-0.08) x10^3/uL Sodium 134 L (135-145) mmol/L Potassium 4.2 (3.5-5.1) mmol/L Chloride 99 (98-107) mmol/L Carbon Dioxide 28 (22-30) mmol/L Anion Gap 11.6 (5-15) MEQ/L BUN 20 (9-20) mg/dL Creatinine 1.20 (0.66-1.25) mg/dL Estimated GFR 66.7 ML/MIN Glucose 106 (74-106) mg/dL Calcium 9.3 (8.4-10.2) mg/dL Total Bilirubin 2.30 H (0.2-1.3) mg/dL AST 44 (17-59) U/L ALT 42 (0-50) U/L Alkaline Phosphatase 82 (38-126) U/L Creatine Kinase 277 H (55-170) U/L Troponin I < 0.012 (0.000-0.033) ng/mL NT-Pro-B Natriuret Pep 142 (<300) pg/mL Serum Total Protein 7.5 (6.3-8.2) g/dL Albumin 4.2 (3.5-5.0) g/dL Lipase 45 (23-300) U/L Procalcitonin (0.030-0.080) ng/mL Urine Color (Yellow) Urine Appearance (Clear) Urine pH (4.6-8.0) Ur Specific [place] (1.005-1.030) Urine Protein (Negative) Urine Glucose (UA) (Negative) mg/dL Urine Ketones (Negative) Urine Blood (Negative) Urine Nitrite (Negative) Urine Bilirubin (Negative) Urine Urobilinogen (0.2) mg/dL Ur Leukocyte Esterase (Negative) U Hyaline Cast (Auto) (0-2) /LPF Urine Microscopic RBC (0-5) /HPF Urine Microscopic WBC (0-5) /HPF Ur Epithelial Cells (None Seen) /HPF Urine Bacteria (None Seen) /HPF Urine Culture Reflexed (NO) 03/06/24 03/06/24 Range/Units 09:30 11:07 WBC (4.23-9.07) x10^3/uL RBC (4.63-6.08) x10^6/uL Hgb (13.7-17.5) g/dL Hct (40.1-51.0) % MCV (79.0-92.2) fL MCH (25.7-32.2) pg MCHC (32.3-36.5) g/dL RDW (11.6-14.4) % Plt Count (163-337) x10^3/uL MPV (9.4-12.4) fL Gran % (34.0-67.9) % Immature Gran % (Auto) (0.001-0.429) % Nucleat RBC Rel Count (0.00-0.2) % Eos # (Auto) (0.04-0.54) x10^3/uL Immature Gran # (Auto) (0.001-0.031) x10^3u/L Absolute Lymphs (auto) (1.32-3.57) x10^3/uL Absolute Monos (auto) (0.30-0.82) x10^3/uL Absolute Nucleated RBC (0.00-0.012) x10^3u/L Lymphocytes % (21.8-53.1) % Monocytes % (5.3-12.2) % Eosinophils % (0.8-7.0) % Basophils % (0.2-1.2) % Absolute Granulocytes (1.78-5.38) x10^3/uL Basophils # (0.01-0.08) x10^3/uL Sodium (135-145) mmol/L Potassium (3.5-5.1) mmol/L Chloride (98-107) mmol/L Carbon Dioxide (22-30) mmol/L Anion Gap (5-15) MEQ/L BUN (9-20) mg/dL Creatinine (0.66-1.25) mg/dL Estimated GFR ML/MIN Glucose (74-106) mg/dL Calcium (8.4-10.2) mg/dL Total Bilirubin (0.2-1.3) mg/dL AST (17-59) U/L ALT (0-50) U/L Alkaline Phosphatase (38-126) U/L Creatine Kinase (55-170) U/L Troponin I (0.000-0.033) ng/mL NT-Pro-B Natriuret Pep (<300) pg/mL Serum Total Protein (6.3-8.2) g/dL Albumin (3.5-5.0) g/dL Lipase (23-300) U/L Procalcitonin 0.827 H (0.030-0.080) ng/mL Urine Color Yellow (Yellow) Urine Appearance Clear (Clear) Urine pH 6.0 (4.6-8.0) Ur Specific [place] >=1.030 A (1.005-1.030) Urine Protein Negative (Negative) Urine Glucose (UA) Negative (Negative) mg/dL Urine Ketones 15 A (Negative) Urine Blood Negative (Negative) Urine Nitrite Negative (Negative) Urine Bilirubin Negative (Negative) Urine Urobilinogen 1.0 A (0.2) mg/dL Ur Leukocyte Esterase Negative (Negative) U Hyaline Cast (Auto) NONE SEEN (0-2) /LPF Urine Microscopic RBC 0-2 (0-5) /HPF Urine Microscopic WBC 0-2 (0-5) /HPF Ur Epithelial Cells None Seen (None Seen) /HPF Urine Bacteria None Seen (None Seen) /HPF Urine Culture Reflexed NO (NO) - Radiology Impressions Radiology Exams & Impressions: Radiology Procedures Category Date Time Status CHEST 1 VIEW (PORTABLE) Stat Exams 03/06/24 08:21 Completed CHEST WITH CONTRAST [CT] Stat Exams 03/06/24 09:15 Completed - Other Procedures and Tests Respiratory Therapy 03/06/24 08:37 Respiratory Therapy Assessment DAILY Assessment/Plan (1) Acute hypoxic respiratory failure Current Visit: Yes Status: Acute Assessment & Plan: -Most likely secondary to aspiration pneumonia -Supplemental oxygen with spo2 goal > 92% -CT showing 1. No acute pulmonary embolism. 2. Multiple nodules are seen in both lower lung lobes, one of these on the right side measures 1.0cm. These appear suspicious and sinister pathology can not be excluded, consider CT at 3-6 months, then CT at 18-24 months regarding Fleischner Society pulmonary nodule recommendations. 3. A few diffusely calcified nodules were seen in both lungs, one of them right lower lobe measures 1.0 cm. These likely represent benign/granuloma. 4. A few ground glass nodules were seen in the left upper lobe, one of these measures 4.0mm. Dependent densities are seen in both lung bases. These likely represent infective etiology/possibility of aspiration. -ABG prn if lethargic/ increased confusion -RT eval -NEBS/INH -Will need OP follow up for lung nodules with pulm -Clindamycin Code(s): J96.01 - ACUTE RESPIRATORY FAILURE WITH HYPOXIA (2) Aspiration pneumonia Current Visit: Yes Status: Acute Assessment & Plan: -CT as stated above consistent with aspiration pneumonia -WBC elevated at 15.7 -procal elevated at 0.827 -Ceftriaxone/azith given in ED- will continue with Clindamycin for coverage of aspiration pna -sputum/blood cultures pending -lactic acid -Lovenox Code(s): J69.0 - PNEUMONITIS DUE TO INHALATION OF FOOD AND VOMIT (3) COPD exacerbation Current Visit: Yes Status: Acute Assessment & Plan: -Most likely secondary to pneumonia -supplemental oxygen with spo2 goal > 92% - RA at baseline -RT eval nebs/INH -Cindamycin to treat pneumonia Code(s): J44.1 - CHRONIC OBSTRUCTIVE PULMONARY DISEASE W (ACUTE) EXACERBATION (4) HTN (hypertension) Current Visit: Yes Status: Acute Assessment & Plan: -stable Code(s): I10 - ESSENTIAL (PRIMARY) HYPERTENSION (5) Smoker Current Visit: Yes Status: Acute Assessment & Plan: -advised cessation -nicotine patch prn Code(s): F17.200 - NICOTINE DEPENDENCE, UNSPECIFIED, UNCOMPLICATED (6) Pulmonary nodules Current Visit: Yes Status: Acute Assessment & Plan: -As reported on CT with recommended follow up in 3-6 months, will need appt with Pulm on dc (7) Leukocytosis Current Visit: Yes Status: Acute Assessment & Plan: -Most likely secondary to pneumonia -Blood cultures pending -UA negative -procal elevated -lactic pending -ceftriaxone/azith in ED, will continue with zosyn Code(s): D72.829 - ELEVATED WHITE BLOOD CELL COUNT, UNSPECIFIED
[2024-03-06] MEDS ORDERED: TYLENOL 325 MG PO PRN (13:07)
[2024-03-06] MEDS ORDERED: Zofran 4 MG/2 ML VIAL IV PRN (13:07)
[2024-03-06] MEDS: Nicoderm CQ 21 MG TOP SCH (13:32)
[2024-03-06] MEDS: Sodium Chloride 0.9% 1000 ML 1,000 ML IV SCH (13:40)
[2024-03-06] MEDS: DUONEB 0.5-3 MG/3 ml Neb IH SCH (14:08)
[2024-03-06] MEDS: solu-MEDROL 40 MG, Sterile H2O 10 ml 1 ML IV SCH (14:22)
[2024-03-06] MEDS: CLEOCIN PHOSPHATE IV SCH (14:22)
[2024-03-06] MEDS: SODIUM CHLORIDE 0.9% IV SCH (14:22)
[2024-03-06] MEDS: NORCO 5/325 MG PO PRN (17:12)
[2024-03-06 21:08] LABS: Amphetamine,Urine SEE SEPARATE REPORT (NEGATIVE)
[2024-03-07] MEDS: Tums EX 750 MG PO PRN (04:55)
[2024-03-07 05:19] LABS: Absolute Neutrophil Ct (ANC) 12.85 x10^3/uL (1.78-5.38); BASOPHIL % 0.1 % (0.2-1.2); Basophil (Absolute #) 0.01 x10^3/uL (0.01-0.08); Eosinophil (Absolute #) 0 x10^3/uL (0.04-0.54); Hematocrit 45.3 % (40.1-51.0); Hemoglobin 15.1 g/dL (13.7-17.5); IMMATURE GRAN # 0.47 x10^3u/L (0.001-0.031); IMMATURE GRAN % 3.2 % (0.001-0.429); Lymphocyte (Absolute #) 0.54 x10^3/uL (1.32-3.57); Lymphocytes % 3.6 % (21.8-53.1); Mean Cell Volume 93.8 fL (79.0-92.2); Mean Corpuscular Hemoglobin 31.3 pg (25.7-32.2); Mean Corpuscular Hgb Concent. 33.3 g/dL (32.3-36.5); Monocyte (Absolute #) 0.94 x10^3/uL (0.30-0.82); Monocytes % 6.3 % (5.3-12.2); Neutrophil % 86.8 % (34.0-67.9); Platelet Count 166 x10^3/uL (163-337); Red Blood Count 4.83 x10^6/uL (4.63-6.08); Red Cell Distribution Width 13.3 % (11.6-14.4); White Blood Count 14.8 x10^3/uL (4.23-9.07)
[2024-03-07 05:49] LABS: ALBUMIN 3.5 g/dL (3.5-5.0); ANION GAP 11.2 MEQ/L (5-15); BILIRUBIN,TOTAL 0.9 mg/dL (0.2-1.3); Calcium 8.8 mg/dL (8.4-10.2); Creatinine 1 0.77 mg/dL (0.66-1.25); EST GLOMERULAR FILTRATION RATE 98.7 ML/MIN; Potassium 3.4 mmol/L (3.5-5.1); Total Protein 6.6 g/dL (6.3-8.2)
[2024-03-07 07:36] LABS: Slide Review 1 YES
[2024-03-07] MEDS: Klor Con PO SCH (08:11)
[2024-03-07] MEDS: Flomax 0.4 MG PO SCH (10:24)
[2024-03-07] MEDS: Acidophilus TABLET PO SCH (10:25)
[2024-03-07] MEDS: ENOXAPARIN SODIUM SQ SCH (10:26)
[2024-03-07 10:30] VITALS: TEMP 98
[2024-03-07 12:06] VITALS: BP 128/73
--- NOTE | 2024-03-07 12:15 | PCM.DS ---
Discharge Summary Date of Admission: 03/06/24 12:11 Date of Discharge: 03/07/24 Admitting Physician: YELENA GARCIA MD Primary Care Provider: BRENDA MARC Allergies Allergies penicillin G Allergy (Unknown, Verified 03/06/24 08:16) Hospital Summary - Hospital Course Hospital Course: is a 68 year old male with a pmhx of COPD (RA Baseline) and HTN (does not take home meds). He presented to ED with complaints of progressive shortness of breath of the past 2 days. Patient reports that he was at work yesterday and became short of breath and dizzy and the shortness of breath has progressed overnight. Of note EMS states that patient left [facility] on 2 days prior to arrival. At that point in time he apparently "had had CPR as he was unresponsive". He apparently left AMA after the event. States that he did not want to stay and felt people were not treating him correctly. Nurse, Claudette did call washhouse worker at [facility]. locker room supervisor reviewing the chart stated that patient did not have an SC. Instead patient was brought in unresponsive, did receive CPR. However after receiving Narcan and immediately woke up and requested to leave AMA shortly thereafter. On this admission pt was lethargic during admission and poor historian. He did report he was a current everyday smoker of 1PPD for > 50 years. Patient is very sore from CPR he received and is requested pain medication. In ED, on day of admission vitals stable,EKG NS with no ST elevations/ deviations. CT negative for PE - demonstrates a few ground glass nodules were seen in the left upper lobe, one of these measures 4.0mm. Dependent densities are seen in both lung bases consistent with aspiration pneumonia. Of note, multiple nodules noted in both lower lung lobes which will require OP follow up. Lab findings remarkable for leukocytosis with WBC at 15.7, procal at 0.827, Tbili at 2.30, mild hyponatremia at 134, and alk phos at 277. Trops x 1 unremarkale. UDS negative.. Pt received ceftriaxone in ED. He does have an allergy to Penicillin, so admission for aspiration pneumonia with IV clindamycin/steroids/nebs. Today pt is not requiring oxygen and did not qualify for home O2 per RT. He is requesting to go home and be treated OP for pneumonia. Discussed risk vs. benefits and he would still like to d/c. Lung sounds are clear. K+ 3.4 and replaced. Will d/c later this afternoon. He is able to walk in room without assistance. He denies CP, SOB, abd. pain, N/V/D. He does admit to some continued rib pain. - Vitals & Intake/Output Vital Signs: Vital Signs Temperature 98.0 F 03/07/24 12:00 Pulse Rate 78 03/07/24 12:00 Respiratory Rate 16 03/07/24 12:00 Blood Pressure 128/73 03/07/24 12:00 O2 Sat by Pulse Oximetry 94 L 03/07/24 12:00 Intake & Output: Intake & Output 03/05/24 03/06/24 03/07/24 03/08/24 11:59 11:59 11:59 11:59 Intake Total 3556 Output Total 100 Balance 3456 Weight 74.843 kg 80.5 kg - Lab Result Diagrams: 03/07/24 05:05 03/07/24 05:05 Lab Results-Last 24 Hrs: Lab Results-Last 24 Hours 03/06/24 03/06/24 03/06/24 Range/Units 11:07 12:02 14:20 WBC (4.23-9.07) x10^3/uL RBC (4.63-6.08) x10^6/uL Hgb (13.7-17.5) g/dL Hct (40.1-51.0) % MCV (79.0-92.2) fL MCH (25.7-32.2) pg MCHC (32.3-36.5) g/dL RDW (11.6-14.4) % Plt Count (163-337) x10^3/uL MPV (9.4-12.4) fL Gran % (34.0-67.9) % Immature Gran % (Auto) (0.001-0.429) % Nucleat RBC Rel Count (0.00-0.2) % Eos # (Auto) (0.04-0.54) x10^3/uL Immature Gran # (Auto) (0.001-0.031) x10^3u/L Absolute Lymphs (auto) (1.32-3.57) x10^3/uL Absolute Monos (auto) (0.30-0.82) x10^3/uL Absolute Nucleated RBC (0.00-0.012) x10^3u/L Lymphocytes % (21.8-53.1) % Monocytes % (5.3-12.2) % Eosinophils % (0.8-7.0) % Basophils % (0.2-1.2) % Absolute Granulocytes (1.78-5.38) x10^3/uL Basophils # (0.01-0.08) x10^3/uL Sodium (135-145) mmol/L Potassium (3.5-5.1) mmol/L Chloride (98-107) mmol/L Carbon Dioxide (22-30) mmol/L Anion Gap (5-15) MEQ/L BUN (9-20) mg/dL Creatinine (0.66-1.25) mg/dL Estimated GFR ML/MIN Glucose (74-106) mg/dL Lactic Acid 1.6 (0.4-2.0) Calcium (8.4-10.2) mg/dL Magnesium (1.6-2.3) mg/dL Total Bilirubin (0.2-1.3) mg/dL AST (17-59) U/L ALT (0-50) U/L Alkaline Phosphatase (38-126) U/L Troponin I < 0.012 (0.000-0.033) ng/mL Serum Total Protein (6.3-8.2) g/dL Albumin (3.5-5.0) g/dL Urine Opiates Level NEGATIVE (NEGATIVE) Ur Methadone NEGATIVE (NEGATIVE) Urine Barbiturates NEGATIVE (NEGATIVE) Ur Phencyclidine (PCP) NEGATIVE (NEGATIVE) Urine Amphetamine SEE SEPARATE REPORT (NEGATIVE) U Benzodiazepine Level NEGATIVE (NEGATIVE) Urine Cocaine NEGATIVE (NEGATIVE) Urine Marijuana (THC) NEGATIVE (NEGATIVE) Slides for Path Review 03/06/24 03/07/24 03/07/24 Range/Units 16:30 05:05 05:05 WBC 14.8 H (4.23-9.07) x10^3/uL RBC 4.83 (4.63-6.08) x10^6/uL Hgb 15.1 (13.7-17.5) g/dL Hct 45.3 (40.1-51.0) % MCV 93.8 H (79.0-92.2) fL MCH 31.3 (25.7-32.2) pg MCHC 33.3 (32.3-36.5) g/dL RDW 13.3 (11.6-14.4) % Plt Count 166 (163-337) x10^3/uL MPV 10.0 (9.4-12.4) fL Gran % 86.8 H (34.0-67.9) % Immature Gran % (Auto) 3.2 H (0.001-0.429) % Nucleat RBC Rel Count 0.0 (0.00-0.2) % Eos # (Auto) 0 L (0.04-0.54) x10^3/uL Immature Gran # (Auto) 0.47 H (0.001-0.031) x10^3u/L Absolute Lymphs (auto) 0.54 L (1.32-3.57) x10^3/uL Absolute Monos (auto) 0.94 H (0.30-0.82) x10^3/uL Absolute Nucleated RBC 0.00 (0.00-0.012) x10^3u/L Lymphocytes % 3.6 L (21.8-53.1) % Monocytes % 6.3 (5.3-12.2) % Eosinophils % 0.0 L (0.8-7.0) % Basophils % 0.1 L (0.2-1.2) % Absolute Granulocytes 12.85 H (1.78-5.38) x10^3/uL Basophils # 0.01 (0.01-0.08) x10^3/uL Sodium 137 (135-145) mmol/L Potassium 3.4 L (3.5-5.1) mmol/L Chloride 108 H (98-107) mmol/L Carbon Dioxide 21 L (22-30) mmol/L Anion Gap 11.2 (5-15) MEQ/L BUN 19 (9-20) mg/dL Creatinine 0.77 (0.66-1.25) mg/dL Estimated GFR 98.7 ML/MIN Glucose 201 H (74-106) mg/dL Lactic Acid (0.4-2.0) Calcium 8.8 (8.4-10.2) mg/dL Magnesium (1.6-2.3) mg/dL Total Bilirubin 0.90 (0.2-1.3) mg/dL AST 26 (17-59) U/L ALT 31 (0-50) U/L Alkaline Phosphatase 86 (38-126) U/L Troponin I < 0.012 (0.000-0.033) ng/mL Serum Total Protein 6.6 (6.3-8.2) g/dL Albumin 3.5 (3.5-5.0) g/dL Urine Opiates Level (NEGATIVE) Ur Methadone (NEGATIVE) Urine Barbiturates (NEGATIVE) Ur Phencyclidine (PCP) (NEGATIVE) Urine Amphetamine (NEGATIVE) U Benzodiazepine Level (NEGATIVE) Urine Cocaine (NEGATIVE) Urine Marijuana (THC) (NEGATIVE) Slides for Path Review YES 03/07/24 Range/Units 05:05 WBC (4.23-9.07) x10^3/uL RBC (4.63-6.08) x10^6/uL Hgb (13.7-17.5) g/dL Hct (40.1-51.0) % MCV (79.0-92.2) fL MCH (25.7-32.2) pg MCHC (32.3-36.5) g/dL RDW (11.6-14.4) % Plt Count (163-337) x10^3/uL MPV (9.4-12.4) fL Gran % (34.0-67.9) % Immature Gran % (Auto) (0.001-0.429) % Nucleat RBC Rel Count (0.00-0.2) % Eos # (Auto) (0.04-0.54) x10^3/uL Immature Gran # (Auto) (0.001-0.031) x10^3u/L Absolute Lymphs (auto) (1.32-3.57) x10^3/uL Absolute Monos (auto) (0.30-0.82) x10^3/uL Absolute Nucleated RBC (0.00-0.012) x10^3u/L Lymphocytes % (21.8-53.1) % Monocytes % (5.3-12.2) % Eosinophils % (0.8-7.0) % Basophils % (0.2-1.2) % Absolute Granulocytes (1.78-5.38) x10^3/uL Basophils # (0.01-0.08) x10^3/uL Sodium (135-145) mmol/L Potassium (3.5-5.1) mmol/L Chloride (98-107) mmol/L Carbon Dioxide (22-30) mmol/L Anion Gap (5-15) MEQ/L BUN (9-20) mg/dL Creatinine (0.66-1.25) mg/dL Estimated GFR ML/MIN Glucose (74-106) mg/dL Lactic Acid (0.4-2.0) Calcium (8.4-10.2) mg/dL Magnesium 2.3 (1.6-2.3) mg/dL Total Bilirubin (0.2-1.3) mg/dL AST (17-59) U/L ALT (0-50) U/L Alkaline Phosphatase (38-126) U/L Troponin I (0.000-0.033) ng/mL Serum Total Protein (6.3-8.2) g/dL Albumin (3.5-5.0) g/dL Urine Opiates Level (NEGATIVE) Ur Methadone (NEGATIVE) Urine Barbiturates (NEGATIVE) Ur Phencyclidine (PCP) (NEGATIVE) Urine Amphetamine (NEGATIVE) U Benzodiazepine Level (NEGATIVE) Urine Cocaine (NEGATIVE) Urine Marijuana (THC) (NEGATIVE) Slides for Path Review - Radiology Exams Ordered Rad Exams-Entire Visit: Radiology Procedures Category Date Time Status CHEST 1 VIEW (PORTABLE) Stat Exams 03/06/24 08:21 Completed CHEST WITH CONTRAST [CT] Stat Exams 03/06/24 09:15 Completed - Procedures and Test Procedures and Tests throughout Hospitalization: Therapy Orders & Screens 03/06/24 08:37 Respiratory Therapy Assessment DAILY Comment: 03/06/24 13:07 EKG REPEAT IN AM Comment: Diagnosis: Acute hypoxic respiratory failure Respiratory Therapy Consult ONCE Comment: Reason For Exam: Diagnosis: Acute hypoxic respiratory failure 03/06/24 14:12 Oxygen NASAL CANNULA 2 lpm Comment: Diagnosis: Acute hypoxic respiratory failure 03/06/24 14:13 RT Screen per Nursing Assess ONCE Comment: Protocol Order Physician Instructions: Greater than 3 points order RT Admission Screen Reason For Exam: Triggered on Admission Diagnosis: Acute hypoxic respiratory failure Diagnosis: Acute hypoxic respiratory failure Pneumonia: Yes Home O2: No Asthma: Yes CHF: No Home CPAP/BIPAP: No Home Nebs/MDI: Yes Total Points: 12 Smoking Cessation Education ONCE Comment: Diagnosis: Acute hypoxic respiratory failure Smoking Status: Current every day smoker How long have you smoked: "50 years" Have you smoked in the past 12 months: Yes Approximately how many cigarettes per day: 10 Do you dip or chew tobacco: No ST Screen per Nursing Assess ONCE Comment: Protocol Order Physician Instructions: Greater than [address] Admission Screening Reason For Exam: Triggered on Admission Diagnosis: Acute hypoxic respiratory failure CVA/Dyshpagia/Aphasia: No Cognitive Deficits: No Dehydration/Nutrition Deficit: No Reflux: No Oral-Motor Difficulties: No Pneumonia: Yes Alf Resident: No Total Points: 5 03/07/24 08:43 Qualify for Home Oxygen TODAY Comment: Diagnosis: Acute hypoxic respiratory failure Discharge Exam General Appearance: no apparent distress, alert Neurologic Exam: alert, oriented x 3, cooperative, normal mood/affect, nml cerebellar function, sensation nml, No motor deficits Eye Exam: PERRL, EOMI, eyes nml inspection Ears, Nose, Throat Exam: normal ENT inspection, pharynx normal, moist mucous membranes Neck Exam: normal inspection, non-tender, supple, full range of motion Respiratory Exam: normal breath sounds, lungs clear, other (left upper rib pain with inspiraton), No respiratory distress Cardiovascular Exam: regular rate/rhythm, normal heart sounds Gastrointestinal/Abdomen Exam: soft, No tenderness, No mass Male Genitalia Exam: deferred Rectal Exam: deferred Back Exam: normal inspection, normal range of motion, No CVA tenderness, No vertebral tenderness Extremity Exam: normal inspection, normal range of motion Skin Exam: normal color, warm, dry Final Diagnosis/Problem List - Final Discharge Diagnosis/Problem (1) Acute hypoxic respiratory failure Current Visit: Yes Status: Acute Assessment & Plan: -Most likely secondary to aspiration pneumonia -Supplemental oxygen with spo2 goal > 92% -CT showing 1. No acute pulmonary embolism. 2. Multiple nodules are seen in both lower lung lobes, one of these on the right side measures 1.0cm. These appear suspicious and sinister pathology can not be excluded, consider CT at 3-6 months, then CT at 18-24 months regarding Fleischner Society pulmonary nodule recommendations. 3. A few diffusely calcified nodules were seen in both lungs, one of them right lower lobe measures 1.0 cm. These likely represent benign/granuloma. 4. A few ground glass nodules were seen in the left upper lobe, one of these measures 4.0mm. Dependent densities are seen in both lung bases. These likely represent infective etiology/possibility of aspiration. -ABG prn if lethargic/ increased confusion -RT eval -NEBS/INH -Will need OP follow up for lung nodules with pulm -Clindamycin-with probiotics - room air 90%- did not qualify for home O2 per RT Code(s): J96.01 - ACUTE RESPIRATORY FAILURE WITH HYPOXIA (2) Aspiration pneumonia Current Visit: Yes Status: Acute Assessment & Plan: -CT as stated above consistent with aspiration pneumonia -WBC elevated at 15.7 on admission- improve today 14.8 -procal elevated at 0.827 -Ceftriaxone/azith given in ED- will continue with Clindamycin for coverage of aspiration pneumonia -sputum/blood cultures pending -lactic acid 1.6- WNL -Lovenox Code(s): J69.0 - PNEUMONITIS DUE TO INHALATION OF FOOD AND VOMIT (3) COPD exacerbation Current Visit: Yes Status: Acute Assessment & Plan: -Most likely secondary to pneumonia -supplemental oxygen with spo2 goal > 92% - RA at baseline -RT eval nebs/INH -Cindamycin to treat pneumonia Code(s): J44.1 - CHRONIC OBSTRUCTIVE PULMONARY DISEASE W (ACUTE) EXACERBATION (4) HTN (hypertension) Current Visit: Yes Status: Chronic Assessment & Plan: -stable Code(s): I10 - ESSENTIAL (PRIMARY) HYPERTENSION (5) Leukocytosis Current Visit: Yes Status: Acute Assessment & Plan: -2:2 pneumonia -Blood cultures pending- will follow OP - Sputum cultures pending- will follow OP -UA negative -procal elevated -lactic acid negative -ceftriaxone/azith in ED, - continue clindamycin Code(s): D72.829 - ELEVATED WHITE BLOOD CELL COUNT, UNSPECIFIED (6) Pulmonary nodules Current Visit: Yes Status: Acute Assessment & Plan: -As reported on CT with recommended follow up in 3-6 months, will need appt with Pulm on dc (7) Smoker Current Visit: Yes Status: Acute Assessment & Plan: - nicotine patch - advised cessation Code(s): F17.200 - NICOTINE DEPENDENCE, UNSPECIFIED, UNCOMPLICATED - Discharge Discharge Date: 03/07/24 Disposition: Home, Self-Care Condition: Stable Prescriptions: New Lactobacillus Acidophilus [Acidophilus TABLET] 1 tab PO DAILY 14 Days #14 tablet Prednisone 20 mg [Deltasone 20 mg] 20 mg PO BID 5 Days #10 tablet clindamycin HCL [Clindamycin HCl] 600 mg PO QID 5 Days #40 cap Continue Tamsulosin HCl 0.4 mg [Flomax 0.4 MG] 0.4 mg PO DAILY Additional Instructions: Use OTC meds for rib pain as needed following label directions. Follow up with: CHRISTINE BANKS DO [ACTIVE STAFF] - 03/11/24 11:00 am
[2024-03-07 13:59] VITALS: PULSE 82; RESP 18; O2SAT 95
== END 2024-03-07 15:30 | disposition home or self-care (01) ==
LOC: ED 08:12 → INTOOBSV 12:11 → MED SURG 12:11
PROVIDERS: ADMIT Internal Medicine; ATTEND Internal Medicine
DX: J96.01 Acute respiratory failure with hypoxia (principal); J69.0 Pneumonitis due to inhalation of food and vomit; J44.1 Chronic obstructive pulmonary disease with (acute) exacerbation; I10 Essential (primary) hypertension; D72.829 Elevated white blood cell count, unspecified; R91.1 Solitary pulmonary nodule; F17.200 Nicotine dependence, unspecified, uncomplicated; I25.2 Old myocardial infarction
CPT/HCPCS: 36000; 36415; 71045; 71260; 80053; 80307; 81001; 82550; 83605; 83690; 83735; 83880; 84145; 84484; 85025; 87040; 93005; 93041; 93268; 94640; 94762; 96365; 96367; 96374; 96375; 99285; 99291; J0456; J0696; J1100; J1650; J2310; J2919; A9270-GY; G0378